=== PATIENT | female | born 1980 | race Caucasian/White ===

== ENCOUNTER 2017-08-05 05:16 | Inpatient (IN) | payer OTHER ==
[2017-08-04 13:43] VITALS: BMI 45.7
[2017-08-05] MEDS ORDERED: BUPIVACAINE HCL/PF 0.5% (5MG/ML) 10 ML VIAL ONE (07:48)
[2017-08-05] MEDS ORDERED: LIDOCAINE 1%/EPI 1:100000 (20 ML MULTI DOSE VIAL) ONE (07:48)
[2017-08-05] MEDS ORDERED: THROMBIN (BOVINE) 20,000 UNIT VIAL TP ONE (07:48)
[2017-08-05] MEDS ORDERED: GENTAMICIN SO4 80 MG/2 ML VIAL ONE ×2 (07:48→11:32)
--- NOTE | 2017-08-05 07:58 | HP ---
History & Physical Update - History History: No Change - Physical Physical: No Change - Assessment Assessment: No Change - Plan Plan: No Change (Initial H&P is located in her paper chart by Dr. Barroso on 07/31/17. No new complaints or medications.)
[2017-08-05] MEDS ORDERED: ROCURONIUM BROMIDE 50 MG/5 ML VIAL ONE ×3 (08:04→10:47)
[2017-08-05] MEDS ORDERED: fentaNYL CITRATE 250 MCG/5 ML VIAL ONE ×3 (08:04→12:02)
[2017-08-05] MEDS ORDERED: PROPOFOL 20 ML ONE (08:04)
[2017-08-05] MEDS ORDERED: MIDAZOLAM HCL 2 MG/2 ML SINGLE DOSE VIAL ONE ×2 (08:04→09:42)
[2017-08-05] MEDS ORDERED: LIDOCAINE HCL/PF 2% SDV 5ML VIAL ONE (08:05)
[2017-08-05] MEDS ORDERED: SCOPOLAMINE HYDROBROMIDE 1 PATCH PATCH.TD72 ONE (08:09)
[2017-08-05] MEDS ORDERED: SODIUM CHLORIDE 0.9% P/F 10 ML VIAL IJ ONE (08:46)
[2017-08-05] MEDS ORDERED: ceFAZolin SODIUM 1 GM VIAL ONE ×2 (08:46→12:42)
[2017-08-05] MEDS ORDERED: VANCOMYCIN 1,000 MG VIAL (RESTRICTED TO ID ONLY) ONE (08:46)
[2017-08-05] MEDS ORDERED: ceFAZolin SODIUM 1 GM VIAL IVPB ONE (08:47)
[2017-08-05] MEDS ORDERED: VANCOMYCIN 1,000 MG VIAL (RESTRICTED TO ID ONLY) IVPB ONE (08:48)
[2017-08-05] MEDS ORDERED: LIDOCAINE 1%/EPI 1:100000 (20 ML MULTI DOSE VIAL) INF ONE (08:53)
[2017-08-05] MEDS ORDERED: ONDANSETRON 4 MG/2 ML VIAL ONE ×2 (09:02→12:42)
[2017-08-05] MEDS ORDERED: DEXAMETHASONE SOD PHOSPHATE 4 MG/1 ML VIAL ONE ×2 (09:02→12:42)
[2017-08-05] MEDS ORDERED: BACITRACIN 50,000 UNITS VIAL TP ONE (09:09)
[2017-08-05] MEDS ORDERED: PHENYLEPHRINE HCL 10 MG/1 ML SINGLE DOSE VIAL ONE (09:31)
[2017-08-05] MEDS ORDERED: ALBUMIN HUMAN 5% 250 ML IV SOLUTION IVPB ONE (09:35)
[2017-08-05] MEDS ORDERED: GLYCOPYRROLATE 0.2 MG/1 ML VIAL ONE (12:42)
[2017-08-05] MEDS ORDERED: NEOSTIGMINE METHYLSULFATE 0.5 MG/ML - 10 ML MDV ONE (12:45)
[2017-08-05] MEDS ORDERED: HYDROmorphone *PCA* 10MG/50ML DISP.SYRIN PCA ONE ×2 (13:23→13:45)
--- NOTE | 2017-08-05 13:25 | OP ---
Operative Note - Note: Operative Date: 08/05/17 Pre-Operative Diagnosis: Thoracic spondylosis and scoliosis Operation: T5-T10 lamincetomies, osteotomies with T5/6 costovertebral and T7- T10 transpedicular decompression, correction of deformity with T5-T10 fusion Surgeon: Abdirahman Goodrich Title I Math Tutor: Zach Daniels Anesthesiologist/LOADER ENGINEER: Rafa Bernal Anesthesia: General Specimens Removed: T5/6 disc Estimated Blood Loss (mls): 3,000 Blood Volume Replaced (mls): 4 (PRBC, 2 FPP, 1L albumin) Fluid Volume Replaced (mls): 2,500 (LR) Operative Report Dictated: Yes
[2017-08-05] MEDS ORDERED: PROMETHAZINE HCL 25 MG/1 ML VIAL IVPB PRN (13:26)
[2017-08-05] MEDS ORDERED: LACTATED RINGERS SOLUTION 1,000 ML IV SCH (13:30)
[2017-08-05] MEDS ORDERED: clonazePAM 2 MG TABLET PO PRN (13:31)
--- NOTE | 2017-08-05 13:31 | SURG ---
Surgery Condenser Setter Note Condenser Setter: Zach Daniels PA-C Date of Service: 08/05/17 Diagnosis: Thoracic spondylosis, scoliosis Procedure: T5-T10 lamincetomies, osteotomies with T5/6 costovertebral and T7-T10 transpedicular decompression, correction of deformity with T5-T10 fusion I was present for the entirety of the operative procedure. For further detail, please refer to operative report. Visit type - Case Type Case Type: Scheduled Admission
[2017-08-05] MEDS ORDERED: ACETAMINOPHEN 1000 MG/100 ML VIAL (NON FORMULARY) IVPB PRN (13:32)
[2017-08-05] MEDS ORDERED: GABAPENTIN 400 MG CAPSULE (FP) PO SCH (14:00)
[2017-08-05] MEDS ORDERED: TIZANIDINE HCL 2 MG TABLET PO SCH (14:00)
[2017-08-05 14:03] LABS: BASO % 0.1 % (0-2.0); EOS % 0.1 % (0-4.5); HEMATOCRIT 28.3 % (32.4-45.2); HEMOGLOBIN 9.7 GM/dL (10.7-15.3); LYMPH % 9.8 % (8-40); MCH 29.9 pg (25.7-33.7); MCHC 34.2 g/dl (32.0-36.0); MEAN CELL VOLUME 87.5 fl (80-96); MEAN PLT VOLUME 8.8 fl (7.5-11.1); MONO % 0.8 % (3.8-10.2); NEUT % 89.2 % (42.8-82.8); PLATELET COUNT 155 K/MM3 (134-434); RBC 3.24 M/mm3 (3.60-5.2); RDW 13.8 % (11.6-15.6); WHITE BLOOD COUNT 10.4 K/mm3 (4.0-10.0)
[2017-08-05 14:34] LABS: INR 1.06 (0.82-1.09)
[2017-08-05 14:37] LABS: ACTIVATED PTT 26.6 SECONDS (26.9-34.4)
[2017-08-05] MEDS ORDERED: DEXAMETHASONE SOD PHOSPHATE 4 MG/1 ML VIAL IVPUSH ONE (14:37)
[2017-08-05] MEDS ORDERED: ACETAMINOPHEN 1000 MG/100 ML VIAL (NON FORMULARY) IVPB ONE (14:38)
[2017-08-05 14:47] LABS: ALBUMIN 3.3 g/dl (3.4-5.0); ANION GAP 4 (8-16); BILIRUBIN,TOTAL 0.9 mg/dL (0.2-1.0); BLOOD UREA NITROGEN 14 mg/dL (7-18); CALCIUM 7.4 mg/dL (8.5-10.1); CHLORIDE 114 mmol/L (98-107); CO2 24 mmol/L (21-32); CREATININE 0.8 mg/dL (0.55-1.02); GLUCOSE,RANDOM 147 mg/dL (74-106); POTASSIUM 4.9 mmol/L (3.5-5.1); SGOT/AST 21 U/L (15-37); SGPT/ALT 25 U/L (12-78); SODIUM 142 mmol/L (136-145); TOT PROT 5.5 g/dl (6.4-8.2)
[2017-08-05 14:48] LABS: ALK PHOS 47 U/L (45-117)
[2017-08-05] MEDS ORDERED: ACETAMINOPHEN 325 MG TABLET (FP) PO SCH (18:00)
--- NOTE | 2017-08-05 19:38 | PN ---
Progress Note, Physician History of Present Illness: Pt. being treated by caprice;lf as outpt.for neurology/pain. Dr. Goodrich's intervention greatly appreciated. Meds: Gabapentin-800mg qid Topamax- 100mg bid Oxycontin 15mg qid prn Tizanidine 2mq qid Zofran 8mg qid Cymbalta 30mg bid Klonopin 2mg tid prn -Will d/c Tizanidine, Oxycontin for now and cont. rest of out pt. meds. - Current Medication List Current Medications: Active Medications Acetaminophen (Ofirmev Injection -) 1,000 mg IVPB PRN PRN PRN Reason: If narcotics are ineffective Stop: 08/06/17 13:31 Clonazepam (Klonopin -) 2 mg PO Q8H PRN PRN Reason: ANXIETY Diazepam (Valium -) 2 mg PO Q12H [facility] Duloxetine HCl (Cymbalta -) 30 mg PO BID [facility] Fentanyl (Sublimaze Injection -) 50 mcg IVPUSH [id number] PRN PRN Reason: PAIN-PACU ORDER X 4 DOSES ONLY Gabapentin (Neurontin -) 800 mg PO QID [facility] Heparin Sodium (Porcine) (Heparin -) 5,000 unit SQ TID [facility] Hydromorphone HCl (Dilaudid Associate Professor Of Education -) 10 mg SALES AND TRAINING SPECIALIST SALES AND TRAINING SPECIALIST DARIEL PRN Reason: Protocol Stop: 08/12/17 13:27 Lactated Ringer's (Lactated Ringers Solution) 1,000 mls @ 125 mls/hr IV ASDIR [facility] Ondansetron HCl (Zofran Injection) 4 mg IVPUSH Q4H PRN PRN Reason: NAUSEA AND/OR VOMITING Oxycodone HCl (Roxicodone -) 15 mg PO Q6H PRN PRN Reason: PAIN Promethazine HCl (Phenergan Injection -) 12.5 mg IVPB Q6H PRN PRN Reason: NAUSEA AND/OR VOMITING Tizanidine HCl (Tizanidine Hcl) 2 mg PO QID [facility] Topiramate (Topamax -) 100 mg PO BID [facility] - Objective Vital Signs: Vital Signs Temperature 98.9 F 08/05/17 18:09 Pulse Rate 76 08/05/17 18:09 Respiratory Rate 20 08/05/17 18:09 Blood Pressure 128/71 08/05/17 18:09 O2 Sat by Pulse Oximetry (%) 100 08/05/17 18:09 Labs: CBC, BMP 08/05/17 13:45 08/05/17 13:45 INR, PTT INR 1.06 (0.82-1.09) 08/05/17 13:45
[2017-08-05] MEDS: ONDANSETRON 4 MG/2 ML VIAL IVPUSH PRN (19:40)
[2017-08-05] MEDS: HYDROmorphone *PCA* 10MG/50ML DISP.SYRIN PCA SCH (20:39)
[2017-08-05] MEDS: LACTATED RINGERS SOLUTION 1,000 ML IV SCH (20:39)
[2017-08-05] MEDS: GABAPENTIN 400 MG CAPSULE (FP) PO SCH ×2 (20:40→21:10)
[2017-08-05] MEDS: DULoxetine HCL 30 MG CAPSULE.DR (FP) PO SCH (21:11)
[2017-08-05] MEDS: TOPIRAMATE 100 MG TABLET PO SCH (21:11)
[2017-08-05] MEDS ORDERED: diazePAM 2 MG TABLET PO SCH (22:00)
[2017-08-06] MEDS: LACTATED RINGERS SOLUTION 1,000 ML IV SCH ×3 (00:34→14:16)
[2017-08-06] MEDS: oxyCODONE HCL 5 MG TABLET PO PRN ×2 (00:43→06:10)
[2017-08-06] MEDS: HYDROmorphone *PCA* 10MG/50ML DISP.SYRIN PCA SCH ×2 (04:09→19:09)
[2017-08-06] MEDS: ONDANSETRON 4 MG/2 ML VIAL IVPUSH PRN ×2 (04:12→12:57)
[2017-08-06] MEDS ORDERED: clonazePAM 0.5 MG TABLET PO PRN (04:40)
[2017-08-06 06:30] LABS: HEMATOCRIT 21.3 % (32.4-45.2); HEMOGLOBIN 7.5 GM/dL (10.7-15.3); MCH 30.4 pg (25.7-33.7); MCHC 35.4 g/dl (32.0-36.0); MEAN CELL VOLUME 85.9 fl (80-96); PLATELET COUNT 170 K/MM3 (134-434); RBC 2.48 M/mm3 (3.60-5.2); RDW 14.2 % (11.6-15.6); WHITE BLOOD COUNT 10.4 K/mm3 (4.0-10.0)
[2017-08-06 06:57] LABS: ANION GAP 4 (8-16); BLOOD UREA NITROGEN 11 mg/dL (7-18); CALCIUM 7.9 mg/dL (8.5-10.1); CHLORIDE 111 mmol/L (98-107); CO2 26 mmol/L (21-32); GLUCOSE,RANDOM 93 mg/dL (74-106); SODIUM 141 mmol/L (136-145)
[2017-08-06 06:58] LABS: CREATININE 0.6 mg/dL (0.55-1.02)
--- NOTE | 2017-08-06 07:49 | PN ---
Progress Note (short form) - Note Progress Note: POD #1 Alert. Laying supine in bed. C/o incisional tenderness. States she's afraid to move. Has BURRER OPERATOR for pain management but states it really isn't helping. Hasn't been OOB yet. Using her incentive spirometer as directed. Patient had 2500mL blood loss during surgery. Intra-op she received 4 PRBC, 2 FFP, 1L albumin and 2500mL LR. Denies n/v/f/c, CP, SOB, palpitations. Last Vital Signs Temp Pulse Resp BP Pulse Ox 98.6 F 72 22 122/63 100 08/06/17 06:00 08/06/17 07:00 08/06/17 07:00 08/06/17 07:00 08/05/17 22:00 CBC, BMP 08/06/17 06:05 08/06/17 06:05 Blood Type Blood Type A POSITIVE 08/05/17 06:30 OUTPUT 08/05/17 08/05/17 08/05/17 08/06/17 08/06/17 19:14 23:41 23:44 06:03 06:21 SHANTA 120 70 80 Piña 400 900 Gen: alert. nad Back: dressing c/d/i, SHANTA on bulb suction : piña to gravity (clear) Neuro: GMNVI bilat. LE: SCDs bilat. soft. nt Problem List - Problems (1) Status post thoracic spinal fusion Assessment/Plan: s/p T5-T10 lamincetomies, osteotomies with T5/6 costovertebral and T7-T10 transpedicular decompression, correction of deformity with T5-T10 fusion. Transfuse 2 PRBC Serial CBC Incentive spirometer Can dc piña once patient OOB and ambulating PT ordered TLSO ordered (pt can begin mobilization without brace. when it does arrive, patient instructed to wear when OOB or ambulating > [address] Gabino Jefferson / Pain Management Consulted BURRER OPERATOR Monitor output from SHANTA and record q shift Hold heparin SQ for now Above plan discussed with Dr. Goodrich and agrees Code(s): Z98.1 - ARTHRODESIS STATUS
[2017-08-06] MEDS ORDERED: oxyCODONE HCL 10 MG SUSTAINED ACTING TABLET PO SCH (11:00)
--- NOTE | 2017-08-06 11:06 | PN ---
Teaching Attending Note Name of Resident: Hilda Banks ATTENDING PHYSICIAN STATEMENT I saw and evaluated the patient. I reviewed the resident's note and discussed the case with the resident. I agree with the resident's findings and plan as documented. SUBJECTIVE: Pt seen and examined in the ICU. Briefly, 36yo female with h/o thoracic spondylosis/scoliosis, pulmonary AVM s/p RLL lobectomy who was admitted for T5- T10 laminectomies/decompression/fusion. EBL 3000mL, transfused 4 units PRBC, 2 units FFP, 1L albumin, 2500mL LR intraop. Seen post op day 1 on dilaudid DRILLER HELPER pump. States pain not controlled. Mild shortness of breath without chest pain. No fevers or chills. +chronic nausea. OBJECTIVE: Last Vital Signs Temp Pulse Resp BP Pulse Ox 98 F 76 22 100/57 100 08/06/17 10:00 08/06/17 10:00 08/06/17 10:00 08/06/17 10:00 08/05/17 22:00 Intake & Output 08/03/17 08/04/17 08/05/17 08/06/17 23:59 23:59 23:59 23:59 Intake Total 5336 1600 Output Total 4490 980 Balance 846 620 Weight 113.398 kg 116.375 kg Gen: uncomfortable with movements Heart: RRR Lung: decreased breath sounds at the bases Abd: soft, nontendeer Ext: no edema Drain: serosanguinous drainage CBC, BMP 08/06/17 06:05 08/06/17 06:05 Active Medications Clonazepam (Klonopin -) 2 mg PO Q8H PRN PRN Reason: ANXIETY Last Admin: 08/06/17 06:11 Dose: 2 mg Diazepam (Valium -) 2 mg PO Q12H [facility] Docusate Sodium (Colace -) 100 mg PO TID [facility] Duloxetine HCl (Cymbalta -) 30 mg PO BID [facility] Last Admin: 08/05/17 21:11 Dose: 30 mg Fentanyl (Sublimaze Injection -) 50 mcg IVPUSH [id number] PRN PRN Reason: PAIN-PACU ORDER X 4 DOSES ONLY Ferrous Sulfate (Feosol -) 325 mg PO DAILY [facility] Gabapentin (Neurontin -) 800 mg PO QID [facility] Last Admin: 08/05/17 21:10 Dose: 800 mg Heparin Sodium (Porcine) (Heparin -) 5,000 unit SQ TID [facility] Hydromorphone HCl (Dilaudid Motion Picture Camera Operator -) 10 mg DRILLER HELPER DRILLER HELPER DARIEL PRN Reason: Protocol Stop: 08/12/17 13:27 Last Admin: 08/06/17 04:09 Dose: 10 mg Lactated Ringer's (Lactated Ringers Solution) 1,000 mls @ 125 mls/hr IV ASDIR [facility] Last Admin: 08/06/17 06:12 Dose: 125 mls/hr Ondansetron HCl (Zofran Injection) 4 mg IVPUSH Q4H PRN PRN Reason: NAUSEA AND/OR VOMITING Last Admin: 08/06/17 04:12 Dose: 4 mg Promethazine HCl (Phenergan Injection -) 12.5 mg IVPB Q6H PRN PRN Reason: NAUSEA AND/OR VOMITING Topiramate (Topamax -) 100 mg PO BID [facility] Last Admin: 08/05/17 21:11 Dose: 100 mg ASSESSMENT AND PLAN: Thoracic Spondylosis/Scoliosis T5-T10 laminectomies/decompression/fusion Acute Blood Loss Anemia Pulmonary AVM s/p RLL lobectomy - pain control - incentive spirometry - monitor H/H - transfuse as needed - IVF - PO/pñia/PT per surgery - bowel regimen - DVT prophylaxis - continue ICU monitoring
--- NOTE | 2017-08-06 11:12 | PN ---
Progress Note, Physician Chief Complaint: events noted and reviewed brother is bedside patient in extreme pain - Current Medication List Current Medications: Active Medications Clonazepam (Klonopin -) 2 mg PO Q8H PRN PRN Reason: ANXIETY Last Admin: 08/06/17 06:11 Dose: 2 mg Diazepam (Valium -) 2 mg PO Q12H [facility] Docusate Sodium (Colace -) 100 mg PO TID [facility] Duloxetine HCl (Cymbalta -) 30 mg PO BID [facility] Last Admin: 08/05/17 21:11 Dose: 30 mg Fentanyl (Sublimaze Injection -) 50 mcg IVPUSH [id number] PRN PRN Reason: PAIN-PACU ORDER X 4 DOSES ONLY Ferrous Sulfate (Feosol -) 325 mg PO DAILY [facility] Gabapentin (Neurontin -) 800 mg PO QID [facility] Last Admin: 08/05/17 21:10 Dose: 800 mg Heparin Sodium (Porcine) (Heparin -) 5,000 unit SQ TID [facility] Hydromorphone HCl (Dilaudid Can Top Setter -) 10 mg RADIATION CONTROL TECHNICIAN RADIATION CONTROL TECHNICIAN [facility] PRN Reason: Protocol Stop: 08/12/17 13:27 Last Admin: 08/06/17 04:09 Dose: 10 mg Lactated Ringer's (Lactated Ringers Solution) 1,000 mls @ 125 mls/hr IV ASDIR [facility] Last Admin: 08/06/17 06:12 Dose: 125 mls/hr Ondansetron HCl (Zofran Injection) 4 mg IVPUSH Q4H PRN PRN Reason: NAUSEA AND/OR VOMITING Last Admin: 08/06/17 04:12 Dose: 4 mg Promethazine HCl (Phenergan Injection -) 12.5 mg IVPB Q6H PRN PRN Reason: NAUSEA AND/OR VOMITING Topiramate (Topamax -) 100 mg PO BID [facility] Last Admin: 08/05/17 21:11 Dose: 100 mg - Objective Vital Signs: Vital Signs Temperature 98 F 08/06/17 10:00 Pulse Rate 76 08/06/17 10:00 Respiratory Rate 22 08/06/17 10:00 Blood Pressure 100/57 08/06/17 10:00 O2 Sat by Pulse Oximetry (%) 100 08/05/17 22:00 Constitutional: Yes: Severe Distress Eyes: Yes: WNL HENT: Yes: WNL Neck: Yes: WNL Cardiovascular: Yes: WNL Respiratory: Yes: WNL, On Nasal O2 Gastrointestinal: Yes: WNL Genitourinary: Yes: Deny Present Musculoskeletal: Yes: Muscle Weakness Extremities: Yes: WNL Edema: Yes Edema: LLE: Trace, RLE: Trace Peripheral Pulses WNL: Yes Integumentary: Yes: WNL Wound/Incision: Yes: Clean/Dry Neurological: Yes: Pre-Existing Deficit ...Motor Strength: RLE Psychiatric: Yes: WNL Labs: CBC, BMP 08/06/17 06:05 08/06/17 06:05 INR, PTT INR 1.06 (0.82-1.09) 08/05/17 13:45 Assessment/Plan S/P THORACIC LEVEL T5-T10 LAMINECTOMIES WITH DECOMPRESSION IN EXTREME PAIN PAIN MEDICINE CONSULT RADIATION CONTROL TECHNICIAN START CALCITONIN PARANASAL FOR BONE SUPPORT DVT PROPHYLAXIS TYLENOL ALLERGY? INCENTIVE SPIROMETRY
--- NOTE | 2017-08-06 11:22 | CONSULT ---
Consultation: CONSULT REQUEST: We have been asked to medically evaluate this patient for post- op management. HISTORY OF PRESENT ILLNESS: 36F with PMH of back pain, spondylosis, thoracic spinal instabilities, Lung Ca, AVMs in lung, TIA (05/16 lung tumor), pseudotumor cerebri, presents s/p elective thoracic spine surgery with Dr. Goodrich. Estimated blood loss = 3L. S/p 4 units PRBCs, 2 units FFP, and 1 unit platelets all transfused yesterday. Pt had an outbreak of hives after the 4th unit given (at 3:30pm yesterday), which resolved with Benadryl. Pt still experience acute blood loss anemia, with 2 more units PRBCs ordered for today. Pt c/o back pain, anesthesia to adjust pain medication. Pt c/o chronic nausea for which she takes Zofran prn. Pt denies flatus. Pt denies headache, chest pain, vomiting, fever, chills. FAMILY HX: Sister: DM Mother: Stroke age 55 Maternal Grandfather: stroke SURGICAL HX: 3 thoracotomies related to Right lower lobe sequestration and tumor removal, hiatal hernia repair, and appendectomy REVIEW OF SYSTEMS: CONSTITUTIONAL: Absent: fever, chills, diaphoresis, generalized weakness HEENT: Absent: rhinorrhea, nasal congestion, throat pain, ear pain, eye pain, visual changes CARDIOVASCULAR: Absent: chest pain, palpitations, irregular heart rate, lightheadedness RESPIRATORY: Absent: cough, dyspnea with exertion, orthopnea, wheezing, stridor GASTROINTESTINAL: nausea Absent: abdominal distension, vomiting, diarrhea, constipation MUSCULOSKELETAL: back pain Absent: myalgia, arthralgia, joint swelling, neck pain SKIN: Absent: rash, itching, pallor HEMATOLOGIC/IMMUNOLOGIC: Absent: easy bleeding, easy bruising, lymphadenopathy NEUROLOGIC: Absent: headache, focal weakness or paresthesias, dizziness, unsteady gait, seizure, mental status changes, bladder or bowel incontinence PSYCHIATRIC: Absent: anxiety, depression, suicidal or homicidal ideation, hallucinations. PHYSICAL EXAMINATION Vital Signs - 24 hr 08/05/17 08/05/17 08/05/17 13:17 13:35 13:50 Temperature 99.1 F Pulse Rate 80 60 58 L Respiratory 20 16 16 Rate Blood Pressure 121/66 103/54 109/55 O2 Sat by Pulse 100 100 100 Oximetry (%) 08/05/17 08/05/17 08/05/17 14:05 14:20 14:35 Temperature Pulse Rate 64 64 70 Respiratory 16 16 16 Rate Blood Pressure 114/60 120/64 119/63 O2 Sat by Pulse 100 100 100 Oximetry (%) 08/05/17 08/05/17 08/05/17 14:50 15:05 15:20 Temperature Pulse Rate 76 76 80 Respiratory 16 16 16 Rate Blood Pressure 117/67 120/64 114/71 O2 Sat by Pulse 100 100 100 Oximetry (%) 08/05/17 08/05/17 08/05/17 15:35 15:50 17:32 Temperature 98.7 F 98.9 F Pulse Rate 68 66 76 Respiratory 16 16 20 Rate Blood Pressure 113/68 120/74 128/71 O2 Sat by Pulse 100 Oximetry (%) 08/05/17 08/05/17 08/05/17 18:09 19:00 19:55 Temperature 98.9 F Pulse Rate 76 70 66 Respiratory 20 22 16 Rate Blood Pressure 128/71 126/74 111/58 O2 Sat by Pulse 100 Oximetry (%) 08/05/17 08/05/17 08/05/17 20:00 21:00 22:00 Temperature 98.9 F Pulse Rate 68 62 59 L Respiratory 24 22 24 Rate Blood Pressure 111/58 118/66 109/50 O2 Sat by Pulse 100 Oximetry (%) 08/05/17 08/06/17 08/06/17 23:00 00:00 01:00 Temperature Pulse Rate 60 61 65 Respiratory 22 22 25 H Rate Blood Pressure 110/53 119/52 117/58 O2 Sat by Pulse Oximetry (%) 08/06/17 08/06/17 08/06/17 02:00 03:00 04:00 Temperature 99 F Pulse Rate 62 60 57 L Respiratory 24 24 22 Rate Blood Pressure 114/49 119/63 117/59 O2 Sat by Pulse Oximetry (%) 08/06/17 08/06/17 08/06/17 04:09 04:39 05:00 Temperature Pulse Rate 65 64 62 Respiratory 28 H 18 22 Rate Blood Pressure 117/59 117/59 108/66 O2 Sat by Pulse Oximetry (%) 08/06/17 08/06/17 08/06/17 05:09 05:39 06:00 Temperature 98.6 F Pulse Rate 62 60 78 Respiratory 20 22 24 Rate Blood Pressure 119/63 117/58 110/65 O2 Sat by Pulse Oximetry (%) 08/06/17 08/06/17 08/06/17 06:09 06:39 07:00 Temperature Pulse Rate 64 62 72 Respiratory 22 22 22 Rate Blood Pressure 108/66 122/63 122/63 O2 Sat by Pulse Oximetry (%) 08/06/17 08/06/17 08:00 10:00 Temperature 98 F Pulse Rate 74 76 Respiratory 22 22 Rate Blood Pressure 126/65 100/57 O2 Sat by Pulse Oximetry (%) GENERAL: AAOx3, mildly anxious. HEAD: Normal with no signs of trauma. EYES: Extraocular movements intact, sclera anicteric, conjunctiva clear. No lid lag. EARS, NOSE, THROAT: Moist mucous membranes. NECK: Normal range of motion, supple without lymphadenopathy, JVD, or masses. LUNGS: Breath sounds equal, clear to auscultation bilaterally. No wheezes, and no crackles. No accessory muscle use. HEART: Regular rate and rhythm, normal S1 and S2 without murmur, rub or gallop. ABDOMEN: Soft, nontender, not distended, hypoactive bowel sounds, no guarding. BACK: Surgical dressing dry and intact, with a small amount of blood visible seeping through. SHANTA drain with serosanguinous fluid. LOWER EXTREMITIES: 2+ pulses, warm, well-perfused. No calf tenderness. No peripheral edema. NEUROLOGICAL: Cranial nerves II-XII grossly intact. Normal speech. No facial droop. Sensation intact and symmetric throughout. Muscle strength 5/5 x 4 extremities. SKIN: Warm, dry, normal turgor, no rashes or lesions noted. Laboratory Results - last 24 hr 08/05/17 08/05/17 08/05/17 06:30 13:45 13:45 WBC 10.4 H RBC 3.24 L D Hgb 9.7 L D Hct 28.3 L D MCV 87.5 MCH 29.9 D MCHC 34.2 RDW 13.8 D Plt Count 155 D MPV 8.8 Neutrophils % 89.2 H D Lymphocytes % 9.8 D Monocytes % 0.8 L D Eosinophils % 0.1 Basophils % 0.1 PT with INR 12.00 INR 1.06 PTT (Actin FS) 26.6 L Sodium Potassium Chloride Carbon Dioxide Anion Gap BUN Creatinine Creat Clearance w eGFR Random Glucose Calcium Total Bilirubin AST ALT Alkaline Phosphatase Total Protein Albumin Blood Type A POSITIVE Antibody Screen Negative Crossmatch See Detail Crossmatch IS Only See Detail 08/05/17 08/06/17 08/06/17 13:45 06:05 06:05 WBC 10.4 H RBC 2.48 L D Hgb 7.5 L D Hct 21.3 L D MCV 85.9 MCH 30.4 MCHC 35.4 RDW 14.2 Plt Count 170 MPV 9.0 Neutrophils % Lymphocytes % Monocytes % Eosinophils % Basophils % PT with INR INR PTT (Actin FS) Sodium 142 141 Potassium 4.9 4.0 Chloride 114 H 111 H Carbon Dioxide 24 26 Anion Gap 4 L 4 L BUN 14 11 Creatinine 0.8 0.6 Creat Clearance w eGFR > 60 Random Glucose 147 H 93 Calcium 7.4 L 7.9 L Total Bilirubin 0.9 D AST 21 ALT 25 Alkaline Phosphatase 47 Total Protein 5.5 L Albumin 3.3 L Blood Type Antibody Screen Crossmatch Crossmatch IS Only Active Medications Generic Name Dose Route Start Last Admin Trade Name Freq PRN Reason Stop Dose Admin Clonazepam 2 mg 08/06/17 04:40 08/06/17 06:11 Klonopin - PO 2 mg Q8H PRN Administration ANXIETY Diazepam 2 mg 08/05/17 22:00 Valium - PO Q12H DARIEL Docusate Sodium 100 mg 08/06/17 14:00 Colace - PO TID DARIEL Duloxetine HCl 30 mg 08/05/17 22:00 08/05/17 21:11 Cymbalta - PO 30 mg BID DARIEL Administration Fentanyl 50 mcg 08/05/17 14:37 Sublimaze Injection - IVPUSH [id number] PRN PAIN-PACU ORDER X 4 DOSES ONLY Ferrous Sulfate 325 mg 08/06/17 10:00 Feosol - PO DAILY DARIEL Gabapentin 800 mg 08/05/17 14:00 08/05/17 21:10 Neurontin - PO 800 mg QID DARIEL Administration Heparin Sodium (Porcine) 5,000 unit 08/06/17 14:00 Heparin - SQ TID [facility] Hydromorphone HCl 10 mg 08/05/17 13:30 08/06/17 04:09 Dilaudid Support Worker - RETOUCHER 08/12/17 13:27 10 mg RETOUCHER DARIEL Administration Protocol Lactated Ringer's 1,000 mls @ 125 mls/hr 08/05/17 13:45 08/06/17 06:12 Lactated Ringers Solution IV 125 mls/hr ASDIR DARIEL Administration Ondansetron HCl 4 mg 08/05/17 13:26 08/06/17 04:12 Zofran Injection IVPUSH 4 mg Q4H PRN Administration NAUSEA AND/OR VOMITING Oxycodone HCl 15 mg 08/05/17 14:41 08/06/17 06:10 Roxicodone - PO 15 mg Q6H PRN Administration PAIN Promethazine HCl 12.5 mg 08/05/17 13:26 Phenergan Injection - IVPB Q6H PRN NAUSEA AND/OR VOMITING Topiramate 100 mg 08/05/17 22:00 08/05/17 21:11 Topamax - PO 100 mg BID DARIEL Administration IMAGIN08/05/[address] -> s/p T5-T10 vertebral bodies in satisfactory alignment. Bone defect seen along inferior posterior margin of T5 and superior/ posterior margin of T6 vertebral body with soft tissue density filling the bone defect and with air pockets suggestive of extension of soft tissue density into spine around thoracic cord. Prominent posterior epidural soft tissue at T9-T10 level noted. Correlation with contrast-enhanced MRI of thoracic spine recommended if further eval desired to r/o post-up hematoma or cord compression. ASSESSMENT/PLAN: 36F with PMH of back pain, spondylosis, thoracic spinal instabilities, Lung Ca, AVMs in lung, TIA (05/16 lung tumor), pseudotumor cerebri, presents s/p elective thoracic spine surgery with Dr. Goodrich. # thoracic back pain - s/p T5-T10 lamincetomies, osteotomies with T5/6 costovertebral and T7-T10 transpedicular decompression, and correction of deformity with T5-T10 fusion [address] Dr[address] Goodrich on 08/05/17 - POD #1 - post-op care per Dr. Goodrich: monitor SHANTA drain, TLSO ordered (pt can begin mobilization without brace and when it arrives, pt should wear for OOB or ambulating > 5 mins), can D/C piña when pt OOB and ambulating - incentive spirometry - pain control with Dilaudid pump, Oxycontin BID, and Neurontin QID - continue home meds of Klonopin and Topamax for back pain - Calcitonin for bone support - Zofran prn and Phenergan prn for nausea # acute blood loss anemia - s/p 6U PRBCs this hospitalization, 2U today and 4U yesterday noemy-op - monitor cbc - monitor for overt s/s of bleeding - transfuse prn - continue Feosol supplementation # FEN - Fluids: LR @ 125 ml/hr - Electrolytes: wnl, continue to monitor - Nutrition: clear liquids # Prophylaxis - DVT ppx with Heparin TID - deconditioning ppx with PT Dispo: We will continue to follow the patient. Thank you for this consultative opportunity. Visit type - Emergency Visit Emergency Visit: Yes ED Registration Date: 08/05/17 Care time: The patient presented to the Emergency Department on the above date and was hospitalized for further evaluation of their emergent condition. - New Patient This patient is new to me today: Yes Date on this admission: 08/06/17 - Critical Care Critical Care patient: Yes Total Critical Care Time (in minutes): 50 Critical Care Statement: The care of this patient involved high complexity decision making to prevent further life threatening deterioration of the patient 's condition and/or to evaluate & treat vital organ system(s) failure or risk of failure.
[2017-08-06] MEDS: oxyCODONE HCL 10 MG SUSTAINED ACTING TABLET PO SCH ×3 (11:32→21:14)
[2017-08-06] MEDS: GABAPENTIN 400 MG CAPSULE (FP) PO SCH ×4 (11:33→21:38)
[2017-08-06] MEDS: DULoxetine HCL 30 MG CAPSULE.DR (FP) PO SCH ×2 (11:33→21:38)
[2017-08-06] MEDS: FERROUS SO4 325 MG TABLET (FP) PO SCH (11:33)
[2017-08-06] MEDS: TOPIRAMATE 100 MG TABLET PO SCH ×2 (11:33→21:38)
[2017-08-06] MEDS ORDERED: HEPARIN NA (PORCINE) 5,000 UNITS/ML 1ML VIAL SQ SCH (14:00)
--- NOTE | 2017-08-06 15:33 | EKG ---
Test Reason : Blood Pressure : / mmHG Vent. Rate : 095 BPM Atrial Rate : 095 BPM P-R Int : 158 ms QRS Dur : 088 ms QT Int : 342 ms P-R-T Axes : 026 004 027 degrees QTc Int : 429 ms NORMAL SINUS RHYTHM NORMAL ECG WHEN COMPARED WITH ECG OF 12-DEC-2011 18:46, VENT. RATE HAS INCREASED BY 41 BPM T WAVE AMPLITUDE HAS DECREASED IN LATERAL LEADS Confirmed by COLUMBA DURAND, JOSE D ([id number]) on 08/06/2017 3:33:05 PM Referred By: Confirmed By:JOSE D WATERMAN MD
--- NOTE | 2017-08-06 15:49 | PN ---
Progress Note (short form) - Note Progress Note: Post op day#1.S/p T5-T10 Posterior decompression with laminectomy,osteotomy, instrumentation and fusion under Ga uneventful.P98,Bp 100/68 and Spo2 (8% on O2 2L NC.Patient stable and c/o pain score of 4-5/[address]Patient doing well and is being transfused PRBC.Will continue MANAGER CT and will f/u tomorrow.
[2017-08-06] MEDS: HEPARIN NA (PORCINE) 5,000 UNITS/ML 1ML VIAL SQ SCH ×2 (16:11→21:44)
[2017-08-06] MEDS: DOCUSATE SODIUM 100 MG CAPSULE (FP) PO SCH ×2 (16:11→21:38)
[2017-08-06] MEDS ORDERED: PT OWN MED DRAWER 7, Y5N ONE ×3 (17:00→20:07)
[2017-08-06] MEDS: CALCITONIN - SALMON SYNTHETIC 3.7 ML SPRAY.PUMP NS SCH (20:13)
[2017-08-06 20:39] LABS: HEMATOCRIT 25.8 % (32.4-45.2); HEMOGLOBIN 8.9 GM/dL (10.7-15.3); MCH 29.3 pg (25.7-33.7); MCHC 34.3 g/dl (32.0-36.0); MEAN CELL VOLUME 85.2 fl (80-96); PLATELET COUNT 155 K/MM3 (134-434); RBC 3.03 M/mm3 (3.60-5.2); RDW 14.3 % (11.6-15.6); WHITE BLOOD COUNT 12.1 K/mm3 (4.0-10.0)
[2017-08-06] MEDS: SENNOSIDES 8.8 MG/5 ML BULK BOTTLE PO SCH (21:37)
[2017-08-07] MEDS: diazePAM 2 MG TABLET PO SCH ×4 (03:00→21:30)
[2017-08-07] MEDS: DOCUSATE SODIUM 100 MG CAPSULE (FP) PO SCH ×3 (05:33→21:29)
[2017-08-07] MEDS: HEPARIN NA (PORCINE) 5,000 UNITS/ML 1ML VIAL SQ SCH ×3 (05:33→21:30)
[2017-08-07 07:54] LABS: HEMATOCRIT 25.7 % (32.4-45.2); HEMOGLOBIN 8.9 GM/dL (10.7-15.3); MCH 29.5 pg (25.7-33.7); MCHC 34.8 g/dl (32.0-36.0); MEAN CELL VOLUME 84.8 fl (80-96); MEAN PLT VOLUME 8.5 fl (7.5-11.1); PLATELET COUNT 147 K/MM3 (134-434); RBC 3.03 M/mm3 (3.60-5.2); RDW 14.7 % (11.6-15.6); WHITE BLOOD COUNT 11.3 K/mm3 (4.0-10.0)
[2017-08-07] MEDS: ONDANSETRON 4 MG/2 ML VIAL IVPUSH PRN (08:16)
[2017-08-07 08:17] LABS: ANION GAP 8 (8-16); BLOOD UREA NITROGEN 10 mg/dL (7-18); CALCIUM 7.9 mg/dL (8.5-10.1); CHLORIDE 108 mmol/L (98-107); CO2 24 mmol/L (21-32); CREATININE 0.7 mg/dL (0.55-1.02); GLUCOSE,RANDOM 111 mg/dL (74-106); MAGNESIUM 2.1 mg/dL (1.8-2.4); PHOSPHOROUS 1.7 mg/dL (2.5-4.9); POTASSIUM 3.6 mmol/L (3.5-5.1); SODIUM 140 mmol/L (136-145)
--- NOTE | 2017-08-07 08:18 | PN ---
Progress Note (short form) - Note Progress Note: POD #2 Alert. Laying supine in bed. Still c/o incisional tenderness. Pain is 6/10 despite using Dilaudid FINISHED STOCK INSPECTOR. Got OOB with assistance yesterday for a little bit. Dr. Jefferson from Pain Management saw patient yesterday and ordered medication but didn't write official consult yet (soon to follow he said). She is using her incentive spirometer as directed. Receieved 2 PRBC yesterday. Piña cath still in. Denies n/v/f/c, CP, SOB, HERRERA, weal, palpitations, numbness/tingling to her lower extremities. Last Vital Signs Temp Pulse Resp BP Pulse Ox 99.2 F 98 H 22 103/63 95 08/07/17 06:00 08/07/17 06:00 08/07/17 06:00 08/07/17 06:00 08/06/17 20:39 H/H TREND 08/06/17 08/06/17 08/07/17 06:05 19:00 07:15 Hgb 7.5 L D 8.9 L D 8.9 L Hct 21.3 L D 25.8 L D 25.7 L INR, PTT INR 1.06 (0.82-1.09) 08/05/17 13:45 OUTPUT TREND 08/06/17 08/06/17 08/06/17 08/07/17 06:21 15:23 23:19 06:14 SHANTA (sanguinous) 80 120 100 Piña (clear) 1,000 400 900 PE Gen: alert. nad Back: dressing removed on rounds --> jm intact. No hematoma. c/d/i. New dressing reapplied. SHANTA line stripped of clots (now running free). Placed back on bulb suction : piña to gravity Neuro: GMNVI bilat. Strength 5/5 bilat LE: SCDs bilat. soft. nt Problem List - Problems (1) Status post thoracic spinal fusion Assessment/Plan: Patient recovering slowly. Spoke with Dr. Jefferson who added Oxycontin 20mg BID in addition to her Dilaudid FINISHED STOCK INSPECTOR. Cont using your incentive spirometer Piña to be d/c'd --> patient can use bedpan or bedside commode. DVT ppx --> Heparin 5000 SQ TID, VIVIAN/SCDs Diet as tolerated PT Monitor H/H and transfuse PRBC prn TLSO brace ordered but still hasn't come from supply Dr. Jefferson's Pain Management consult to follow If patient's pain is controlled well, possiblity to downgrade to floor later today after we re-evaluate her. Code(s): Z98.1 - ARTHRODESIS STATUS
[2017-08-07] MEDS ORDERED: POTASSIUM PHOSPHATE 30 MM in SODIUM CHLORIDE 250 ML IVPB ONE (09:05)
[2017-08-07] MEDS: FERROUS SO4 325 MG TABLET (FP) PO SCH (09:06)
[2017-08-07] MEDS: oxyCODONE HCL 10 MG SUSTAINED ACTING TABLET PO SCH ×2 (09:06→21:30)
[2017-08-07] MEDS: DULoxetine HCL 30 MG CAPSULE.DR (FP) PO SCH ×2 (09:06→21:30)
[2017-08-07] MEDS: GABAPENTIN 400 MG CAPSULE (FP) PO SCH ×4 (09:07→21:29)
[2017-08-07] MEDS: CALCITONIN - SALMON SYNTHETIC 3.7 ML SPRAY.PUMP NS SCH (10:46)
--- NOTE | 2017-08-07 11:11 | PN ---
Teaching Attending Note Name of Resident: Hilda Banks ATTENDING PHYSICIAN STATEMENT I saw and evaluated the patient. I reviewed the resident's note and discussed the case with the resident. I agree with the resident's findings and plan as documented. SUBJECTIVE: Pt seen and examined in the ICU. Still with significant pain despite adjustment from pain management. +chronic nausea. No BM. OBJECTIVE: Last Vital Signs Temp Pulse Resp BP Pulse Ox 99.2 F 89 26 H 111/66 95 08/07/17 06:00 08/07/17 08:00 08/07/17 08:38 08/07/17 08:00 08/07/17 08:38 Intake & Output 08/04/17 08/05/17 08/06/17 08/07/17 23:59 23:59 23:59 23:59 Intake Total 5336 1900 500 Output Total 4490 2500 1000 Balance 846 -600 -500 Weight 113.398 kg 116.375 kg 115.468 kg Gen: NAD at rest Heart: RRR Lung: decreased breath sounds at the bases Abd: soft, nontender Ext: no edema Drain: serosanguinous fluid CBC, BMP 08/07/17 07:15 08/07/17 07:15 Active Medications Calcitonin (Miacalcin [place] -) 200 units NS DAILY [facility] Last Admin: 08/07/17 10:46 Dose: 1 spray Diazepam (Valium -) 2 mg PO TID [facility] Last Admin: 08/07/17 05:59 Dose: 2 mg Docusate Sodium (Colace -) 100 mg PO TID [facility] Last Admin: 08/07/17 05:33 Dose: 100 mg Duloxetine HCl (Cymbalta -) 30 mg PO BID [facility] Last Admin: 08/07/17 09:06 Dose: 30 mg Fentanyl (Sublimaze Injection -) 50 mcg IVPUSH [id number] PRN PRN Reason: PAIN-PACU ORDER X 4 DOSES ONLY Ferrous Sulfate (Feosol -) 325 mg PO DAILY [facility] Last Admin: 08/07/17 09:06 Dose: 325 mg Gabapentin (Neurontin -) 800 mg PO QID [facility] Last Admin: 08/07/17 09:07 Dose: 800 mg Heparin Sodium (Porcine) (Heparin -) 5,000 unit SQ TID [facility] Last Admin: 08/07/17 05:33 Dose: 5,000 unit Hydromorphone HCl (Dilaudid Pipe Layer Helper -) 10 mg BUSINESS PRACTICES SUPERVISOR BUSINESS PRACTICES SUPERVISOR [facility] PRN Reason: Protocol Stop: 08/12/17 13:27 Last Admin: 08/06/17 19:09 Dose: 10 mg Lactated Ringer's (Lactated Ringers Solution) 1,000 mls @ 125 mls/hr IV ASDIR [facility] Last Admin: 08/06/17 14:16 Dose: Not Given Potassium Phosphate 30 mm/ (Sodium Chloride) 260 mls @ 62.5 mls/hr IVPB ONCE ONE Stop: 08/07/17 13:14 Last Admin: 08/07/17 10:43 Dose: 62.5 mls/hr Oxycodone HCl (Oxycontin -) 20 mg PO BID [facility] Last Admin: 08/07/17 09:06 Dose: 20 mg Promethazine HCl (Phenergan Injection -) 12.5 mg IVPB Q6H PRN PRN Reason: NAUSEA AND/OR VOMITING Senna (Senna Oral Solution -) 8.8 mg PO HS [facility] Last Admin: 08/06/17 21:37 Dose: 5 ml Topiramate (Topamax -) 100 mg PO BID [facility] Last Admin: 08/06/17 21:38 Dose: 100 mg ASSESSMENT AND PLAN: Thoracic Spondylosis/Scoliosis T5-T10 laminectomies/decompression/fusion Acute Blood Loss Anemia Pulmonary AVM s/p RLL lobectomy - adjust pain control - incentive spirometry - monitor H/H - transfuse as needed - IVF - replete lytes - PO/piña/PT per surgery - bowel regimen - DVT prophylaxis - disposition per surgery
--- NOTE | 2017-08-07 11:24 | PN ---
Progress Note, Physician Chief Complaint: awake alert sedated effect from opiods no bowel movement for 4 days poor appetite - Current Medication List Current Medications: Active Medications Calcitonin (Miacalcin [place] -) 200 units NS DAILY [facility] Last Admin: 08/07/17 10:46 Dose: 1 spray Diazepam (Valium -) 2 mg PO TID [facility] Last Admin: 08/07/17 05:59 Dose: 2 mg Docusate Sodium (Colace -) 100 mg PO TID [facility] Last Admin: 08/07/17 05:33 Dose: 100 mg Duloxetine HCl (Cymbalta -) 30 mg PO BID [facility] Last Admin: 08/07/17 09:06 Dose: 30 mg Fentanyl (Sublimaze Injection -) 50 mcg IVPUSH [id number] PRN PRN Reason: PAIN-PACU ORDER X 4 DOSES ONLY Ferrous Sulfate (Feosol -) 325 mg PO DAILY [facility] Last Admin: 08/07/17 09:06 Dose: 325 mg Gabapentin (Neurontin -) 800 mg PO QID [facility] Last Admin: 08/07/17 09:07 Dose: 800 mg Heparin Sodium (Porcine) (Heparin -) 5,000 unit SQ TID [facility] Last Admin: 08/07/17 05:33 Dose: 5,000 unit Hydromorphone HCl (Dilaudid Glass Laminating Operator -) 10 mg SENIOR MARKET INTELLIGENCE CONSULTANT SENIOR MARKET INTELLIGENCE CONSULTANT [facility] PRN Reason: Protocol Stop: 08/12/17 13:27 Last Admin: 08/06/17 19:09 Dose: 10 mg Lactated Ringer's (Lactated Ringers Solution) 1,000 mls @ 125 mls/hr IV ASDIR [facility] Last Admin: 08/06/17 14:16 Dose: Not Given Potassium Phosphate 30 mm/ (Sodium Chloride) 260 mls @ 62.5 mls/hr IVPB ONCE ONE Stop: 08/07/17 13:14 Last Admin: 08/07/17 10:43 Dose: 62.5 mls/hr Oxycodone HCl (Oxycontin -) 20 mg PO BID [facility] Last Admin: 08/07/17 09:06 Dose: 20 mg Promethazine HCl (Phenergan Injection -) 12.5 mg IVPB Q6H PRN PRN Reason: NAUSEA AND/OR VOMITING Senna (Senna Oral Solution -) 8.8 mg PO [facility] Last Admin: 08/06/17 21:37 Dose: 5 ml Topiramate (Topamax -) 100 mg PO BID [facility] Last Admin: 08/06/17 21:38 Dose: 100 mg - Objective Vital Signs: Vital Signs Temperature 99.2 F 08/07/17 06:00 Pulse Rate 89 08/07/17 08:00 Respiratory Rate 26 H 08/07/17 08:38 Blood Pressure 111/66 08/07/17 08:00 O2 Sat by Pulse Oximetry (%) 95 08/07/17 08:38 Constitutional: Yes: Mild Distress Eyes: Yes: WNL HENT: Yes: WNL Neck: Yes: WNL Cardiovascular: Yes: WNL Respiratory: Yes: WNL Gastrointestinal: Yes: WNL Genitourinary: Yes: WNL Musculoskeletal: Yes: Muscle Weakness Edema: No Peripheral Pulses WNL: Yes Integumentary: Yes: WNL Wound/Incision: Yes: Clean/Dry Neurological: Yes: Pre-Existing Deficit ...Motor Strength: LLE, RLE Psychiatric: Yes: Other Labs: CBC, BMP 08/07/17 07:15 08/07/17 07:15 INR, PTT INR 1.06 (0.82-1.09) 08/05/17 13:45 Problem List - Problems (1) Status post thoracic spinal fusion Code(s): Z98.1 - ARTHRODESIS STATUS (2) Back pain Code(s): M54.9 - DORSALGIA, UNSPECIFIED Assessment/Plan DIET STARTED D/W PATIENT TO EAT SO SHE CAN RECOVER FROM SX OOB TO CHAIR PER NEUROSURG RELISTOR STARTED FOR OPIOD BOWEL CONSTIPATION PAIN CONTROL DVT PROPHYLAXIS INCENTIVE SPIROMETRY
[2017-08-07] MEDS ORDERED: PT OWN MED DRAWER 7, Y5N ONE ×2 (12:26→21:25)
[2017-08-07] MEDS: TOPIRAMATE 100 MG TABLET PO SCH ×2 (12:28→21:30)
--- NOTE | 2017-08-07 12:59 | PN ---
Physical Exam: SUBJECTIVE: Patient seen and examined in the ICU. Pt c/o significant break through back pain. Valium added to pain regimen. (+) flatus, no BM. Relistor added. Pt remains afebrile. Pt tolerating regular diet, though appetite diminished. OBJECTIVE: Vital Signs Period Temp Pulse Resp BP Sys/Collins Pulse Ox Last 24 Hr 98.5 F-100 F 76-103 20-26 93-135/44-76 95-95 GENERAL: AAOx3, NAD at rest. LUNGS: Breath sounds equal, clear to auscultation bilaterally. No wheezes, and no crackles. No accessory muscle use. HEART: Regular rate and rhythm, normal S1 and S2 without murmur, rub or gallop. ABDOMEN: Soft, nontender, not distended, hypoactive bowel sounds, no guarding. BACK: Surgical dressing CDI. SHANTA drain with serosanguinous fluid. LOWER EXTREMITIES: Warm, well-perfused. No calf tenderness. No peripheral edema. Laboratory Results - last 24 hr 08/05/17 08/06/17 08/06/17 06:30 15:30 19:00 WBC 12.1 H RBC 3.03 L D Hgb 8.9 L D Hct 25.8 L D MCV 85.2 MCH 29.3 MCHC 34.3 RDW 14.3 Plt Count 155 MPV 9.0 Sodium Potassium Chloride Carbon Dioxide Anion Gap BUN Creatinine Random Glucose Calcium Phosphorus Magnesium Creatine Kinase 397 H Creatine Kinase Index 1.6 CK-MB (CK-2) 6.425 H Troponin I < 0.02 Blood Type A POSITIVE Antibody Screen Negative Crossmatch See Detail Crossmatch IS Only See Detail 08/07/17 08/07/17 07:15 07:15 WBC 11.3 H RBC 3.03 L Hgb 8.9 L Hct 25.7 L MCV 84.8 MCH 29.5 MCHC 34.8 RDW 14.7 Plt Count 147 MPV 8.5 Sodium 140 Potassium 3.6 Chloride 108 H Carbon Dioxide 24 Anion Gap 8 BUN 10 Creatinine 0.7 Random Glucose 111 H Calcium 7.9 L Phosphorus 1.7 L Magnesium 2.1 Creatine Kinase Creatine Kinase Index CK-MB (CK-2) Troponin I Blood Type Antibody Screen Crossmatch Crossmatch IS Only Active Medications Generic Name Dose Route Start Last Admin Trade Name Freq PRN Reason Stop Dose Admin Calcitonin 200 units 08/06/17 12:00 08/07/17 10:46 Miacalcin [place] - NS 1 spray DAILY [facility] Administration Diazepam 2 mg 08/07/17 02:30 08/07/17 05:59 Valium - PO 2 mg TID [facility] Administration Docusate Sodium 100 mg 08/06/17 14:00 08/07/17 05:33 Colace - PO 100 mg TID [facility] Administration Duloxetine HCl 30 mg 08/05/17 22:00 08/07/17 09:06 Cymbalta - PO 30 mg BID [facility] Administration Fentanyl 50 mcg 08/05/17 14:37 Sublimaze Injection - IVPUSH [id number] PRN PAIN-PACU ORDER X 4 DOSES ONLY Ferrous Sulfate 325 mg 08/06/17 10:00 08/07/17 09:06 Feosol - PO 325 mg DAILY [facility] Administration Gabapentin 800 mg 08/05/17 14:00 08/07/17 09:07 Neurontin - PO 800 mg QID [facility] Administration Heparin Sodium (Porcine) 5,000 unit 08/06/17 14:00 08/07/17 05:33 Heparin - SQ 5,000 unit TID [facility] Administration Hydromorphone HCl 10 mg 08/05/17 13:30 08/06/17 19:[address] Control Technician - EASEMENT MAN 08/12/17 13:27 10 mg EASEMENT MAN [facility] Administration Protocol Lactated Ringer's 1,000 mls @ 125 mls/hr 08/05/17 13:45 08/06/17 14:16 Lactated Ringers Solution IV Not Given ASDIR [facility] Potassium Phosphate 30 mm/ 260 mls @ 62.5 mls/hr 08/07/17 09:05 08/07/17 10: 43 Sodium Chloride IVPB 08/07/17 13:14 62.5 mls/hr ONCE ONE Administration Methylnaltrexone [place] 8 mg 08/07/17 11:30 Relistor - SQ DAILY [facility] Oxycodone HCl 20 mg 08/06/17 11:30 08/07/17 09:06 Oxycontin - PO 20 mg BID [facility] Administration Promethazine HCl 12.5 mg 08/05/17 13:26 Phenergan Injection - IVPB Q6H PRN NAUSEA AND/OR VOMITING Senna 8.8 mg 08/06/17 22:00 08/06/17 21:37 Senna Oral Solution - PO 5 ml HS [facility] Administration Topiramate 100 mg 08/05/17 22:00 08/07/17 12:28 Topamax - PO 100 mg BID [facility] Administration ASSESSMENT/PLAN: 36F with PMH of back pain, spondylosis, thoracic spinal instabilities, Lung Ca, AVMs in lung, TIA (05/16 lung tumor), pseudotumor cerebri, presents s/p elective thoracic spine surgery with Dr. Goodrich. # thoracic back pain - s/p T5-T10 lamincetomies, osteotomies with T5/6 costovertebral and T7-T10 transpedicular decompression, and correction of deformity with T5-T10 fusion by Dr. Goodrich on 08/05/17 - POD #2 - post-op care per Dr. Goodrich: monitor SHANTA drain, TLSO ordered (pt can begin mobilization without brace and when it arrives, pt should wear for OOB or ambulating > 5 mins), piña D/Johnny - incentive spirometry - pain control with Dilaudid pump, Oxycontin BID, Valium TID, and Neurontin QID - continue home med of Topamax for back pain - Calcitonin for bone support - Zofran prn and Phenergan prn for nausea # acute blood loss anemia - s/p 6U PRBCs this hospitalization, 2U today and 4U yesterday noemy-op - hgb stable - monitor for overt s/s of bleeding - transfuse prn - continue Feosol supplementation # constipation - Relistor added for opiod bowel constipation - continue Colace and Senna # FEN - Fluids: LR @ 125 ml/hr - Electrolytes: hypophosphatemia repleted with KPhos 30mm IVPB, continue to monitor - Nutrition: regular diet # Prophylaxis - DVT ppx with Heparin TID - deconditioning ppx with PT Visit type - Emergency Visit Emergency Visit: Yes ED Registration Date: 08/05/17 Care time: The patient presented to the Emergency Department on the above date and was hospitalized for further evaluation of their emergent condition. - New Patient This patient is new to me today: No - Critical Care Critical Care patient: Yes Total Critical Care Time (in minutes): 38 Critical Care Statement: The care of this patient involved high complexity decision making to prevent further life threatening deterioration of the patient 's condition and/or to evaluate & treat vital organ system(s) failure or risk of failure.
--- NOTE | 2017-08-07 13:23 | PN ---
Progress Note (short form) - Note Progress Note: Anesthesia postop/ pain management follow up POD#2 on cook sauce, still in pain, usin the cook sauce. Will continue cook sauce for now, will reevaluate tomorrow.
[2017-08-07] MEDS: Methylnaltrexone Bromide 12 MG/0.6 ML KIT SQ SCH (14:06)
[2017-08-07] MEDS: LACTATED RINGERS SOLUTION 1,000 ML IV SCH (15:45)
--- NOTE | 2017-08-07 18:03 | PN ---
Progress Note (short form) - Note Progress Note: notified by patient's family member that pt is behaving strangely and is worried about stroke. MD and nurse went to assess patient who was found to be lethargic but verbally responsive and not complaining of anything. Pt was found to have normal vitals and an unchanged physical exam. It was then realized that the patient's brother, Jarett, has been giving pushes of the dilaudid pump when the patient was sleeping. per Jarett, he thought he was supposed to push it every time the patient looked to be in any type of distress. Jarett was educated that only the patient should be pressing the button and explained the possibly fatal consequences of pressing the button when she is sleeping or too sedated to press it herself. Patient responded that he did not know that and that he will not press it again. -Zach Mauro MD PGY1
[2017-08-07] MEDS ORDERED: RANITIDINE HCL 150 MG TABLET (FP) PO ONE (18:15)
[2017-08-07] MEDS: HYDROmorphone *PCA* 10MG/50ML DISP.SYRIN PCA SCH (21:15)
[2017-08-07] MEDS: SENNOSIDES 8.8 MG/5 ML BULK BOTTLE PO SCH (21:30)
[2017-08-08] MEDS: HYDROmorphone *PCA* 10MG/50ML DISP.SYRIN PCA SCH ×4 (00:39→08:30)
[2017-08-08] MEDS: DOCUSATE SODIUM 100 MG CAPSULE (FP) PO SCH ×3 (06:21→22:01)
[2017-08-08] MEDS: HEPARIN NA (PORCINE) 5,000 UNITS/ML 1ML VIAL SQ SCH ×3 (06:22→22:01)
[2017-08-08] MEDS: diazePAM 2 MG TABLET PO SCH ×3 (06:22→22:01)
[2017-08-08 06:33] LABS: HEMATOCRIT 26.3 % (32.4-45.2); HEMOGLOBIN 9.4 GM/dL (10.7-15.3); MCH 30.7 pg (25.7-33.7); MCHC 35.8 g/dl (32.0-36.0); MEAN CELL VOLUME 85.7 fl (80-96); MEAN PLT VOLUME 8.8 fl (7.5-11.1); PLATELET COUNT 165 K/MM3 (134-434); RBC 3.07 M/mm3 (3.60-5.2); RDW 14.1 % (11.6-15.6); WHITE BLOOD COUNT 9.8 K/mm3 (4.0-10.0)
[2017-08-08 06:52] LABS: ANION GAP 5 (8-16); BLOOD UREA NITROGEN 10 mg/dL (7-18); CALCIUM 7.8 mg/dL (8.5-10.1); CHLORIDE 109 mmol/L (98-107); CO2 25 mmol/L (21-32); CREATININE 0.6 mg/dL (0.55-1.02); GLUCOSE,RANDOM 102 mg/dL (74-106); MAGNESIUM 1.9 mg/dL (1.8-2.4); PHOSPHOROUS 2.6 mg/dL (2.5-4.9); POTASSIUM 3.8 mmol/L (3.5-5.1); SODIUM 139 mmol/L (136-145)
--- NOTE | 2017-08-08 08:30 | PROC ---
Procedure Note Procedure: Asked by Dr. Edwards to pull the SHANTA drain. The drain was removed intact and a 4x4 gauze and tegaderm were applied. The surgical dressing was c/d/i with a gauze and tegaderm. This dressing was left in place.
[2017-08-08] MEDS: GABAPENTIN 400 MG CAPSULE (FP) PO SCH ×4 (09:30→22:01)
[2017-08-08] MEDS: oxyCODONE HCL 10 MG SUSTAINED ACTING TABLET PO SCH ×2 (09:30→22:01)
[2017-08-08] MEDS: FERROUS SO4 325 MG TABLET (FP) PO SCH (09:32)
[2017-08-08] MEDS: TOPIRAMATE 100 MG TABLET PO SCH ×2 (09:32→22:01)
[2017-08-08] MEDS: DULoxetine HCL 30 MG CAPSULE.DR (FP) PO SCH ×2 (09:33→22:01)
[2017-08-08] MEDS: Methylnaltrexone Bromide 12 MG/0.6 ML KIT SQ SCH (09:34)
[2017-08-08] MEDS: CALCITONIN - SALMON SYNTHETIC 3.7 ML SPRAY.PUMP NS SCH (09:35)
--- NOTE | 2017-08-08 10:54 | PN ---
Progress Note (short form) - Note Progress Note: POD #3. Follow-up for pain management. VSS. Pain score 7/10. Will continue ADVANCED MANUFACTURING CONSULTANT for now and follow up tomorrow. Perhaps microsoft exchange architect to po over the weekend.
--- NOTE | 2017-08-08 11:13 | PN ---
Progress Note, Physician Chief Complaint: AWAKE ALERT LETHARGIC POOR APPETITE NO BM WALKED WITH PT TODAY - Current Medication List Current Medications: Active Medications Calcitonin (Miacalcin [place] -) 200 units NS DAILY [facility] Last Admin: 08/08/17 09:35 Dose: 1 spray Diazepam (Valium -) 2 mg PO TID [facility] Last Admin: 08/08/17 06:22 Dose: 2 mg Docusate Sodium (Colace -) 100 mg PO TID [facility] Last Admin: 08/08/17 06:21 Dose: Not Given Duloxetine HCl (Cymbalta -) 30 mg PO BID [facility] Last Admin: 08/08/17 09:33 Dose: 30 mg Ferrous Sulfate (Feosol -) 325 mg PO DAILY [facility] Last Admin: 08/08/17 09:32 Dose: 325 mg Gabapentin (Neurontin -) 800 mg PO QID [facility] Last Admin: 08/08/17 09:30 Dose: 800 mg Heparin Sodium (Porcine) (Heparin -) 5,000 unit SQ TID [facility] Last Admin: 08/08/17 06:22 Dose: Not Given Hydromorphone HCl (Dilaudid Master Welder -) 10 mg YARD CALLER YARD CALLER [facility] PRN Reason: Protocol Stop: 08/12/17 13:27 Last Admin: 08/08/17 04:37 Dose: 0.4 mg Lactated Ringer's (Lactated Ringers Solution) 1,000 mls @ 125 mls/hr IV ASDIR [facility] Last Admin: 08/07/17 15:45 Dose: Not Given Methylnaltrexone [place] (Relistor -) 8 mg SQ DAILY [facility] Last Admin: 08/08/17 09:34 Dose: 8 mg Oxycodone HCl (Oxycontin -) 20 mg PO BID [facility] Last Admin: 08/08/17 09:30 Dose: 20 mg Promethazine HCl (Phenergan Injection -) 12.5 mg IVPB Q6H PRN PRN Reason: NAUSEA AND/OR VOMITING Senna (Senna Oral Solution -) 8.8 mg PO HS [facility] Last Admin: 08/07/17 21:30 Dose: 5 ml Topiramate (Topamax -) 100 mg PO BID [facility] Last Admin: 08/08/17 09:32 Dose: 100 mg - Objective Vital Signs: Vital Signs Temperature 98.5 F 08/08/17 10:22 Pulse Rate 80 08/08/17 10:22 Respiratory Rate 18 08/08/17 10:22 Blood Pressure 106/53 08/08/17 10:22 O2 Sat by Pulse Oximetry (%) 99 08/08/17 08:35 Constitutional: Yes: Moderate Distress Eyes: Yes: WNL HENT: Yes: WNL Neck: Yes: WNL Cardiovascular: Yes: WNL Respiratory: Yes: WNL Gastrointestinal: Yes: Tenderness Genitourinary: Yes: Incontinence Musculoskeletal: Yes: Back Pain, Muscle Weakness Extremities: Yes: WNL Edema: Yes Edema: LLE: Trace, RLE: Trace Peripheral Pulses WNL: Yes Integumentary: Yes: WNL Wound/Incision: Yes: Dressing Dry and Intact Neurological: Yes: Pre-Existing Deficit, Weakness ...Motor Strength: LLE, RLE Psychiatric: Yes: WNL Labs: CBC, BMP 08/08/17 05:00 08/08/17 05:00 INR, PTT INR 1.06 (0.82-1.09) 08/05/17 13:45 Problem List - Problems (1) Status post thoracic spinal fusion Code(s): Z98.1 - ARTHRODESIS STATUS (2) Back pain Code(s): M54.9 - DORSALGIA, UNSPECIFIED Assessment/Plan RELISTOR ADDED FOR OPIAD BOWEL STOOL SOFTENERS/OOB TO CHAIR PT EVAL APPRECIATED WALKED 50 FT + PREDUCE PAIN MEDS SLOWLY NEUROSURGERY F/U TENDER ABD?? MONITOR TO R/O ILEUS DVT PROPHYLAXIS LABS REVIEWED
--- NOTE | 2017-08-08 11:20 | PN ---
Physical Exam: SUBJECTIVE: Patient seen and examined No acute events overnight. Pt states that back pain is improved compared to yesterday, currently a 6/10. She denies having a BM since her surgery and states that she has no appetite so she hasn't really eaten any solids yet. She complains of intermittent nausea. OBJECTIVE: Vital Signs Period Temp Pulse Resp BP Sys/Collins Pulse Ox Last 24 Hr 98.3 F-99.6 F 80-101 18-26 104-123/50-96 99-99 GENERAL: obese, middle-aged female, lying on side, in NAD HEENT: NC, AT LUNGS: shallow breath sounds, no rales, no rhonchi. SHANTA drain with minimal blood- tinged fluid HEART: tachycardic, regular rhythm, no murmurs. ABDOMEN: obese abdomen, soft, normoactive BS, minimally tender diffusely EXTREMITIES: 2+ pulses, warm, well-perfused, no edema. NEUROLOGICAL: Cranial nerves II through XII grossly intact. Normal speech, gait not observed. Laboratory Results - last 24 hr 08/05/17 08/08/17 08/08/17 06:30 05:00 05:00 WBC 9.8 RBC 3.07 L Hgb 9.4 L Hct 26.3 L MCV 85.7 MCH 30.7 MCHC 35.8 RDW 14.1 Plt Count 165 MPV 8.8 Sodium 139 Potassium 3.8 Chloride 109 H Carbon Dioxide 25 Anion Gap 5 L BUN 10 Creatinine 0.6 Random Glucose 102 Calcium 7.8 L Phosphorus 2.6 Magnesium 1.9 Blood Type A POSITIVE Antibody Screen Negative Crossmatch See Detail Crossmatch IS Only See Detail Active Medications Generic Name Dose Route Start Last Admin Trade Name Freq PRN Reason Stop Dose Admin Calcitonin 200 units 08/06/17 12:00 08/08/17 09:35 Miacalcin [place] - NS 1 spray DAILY [facility] Administration Diazepam 2 mg 08/07/17 02:30 08/08/17 06:22 Valium - PO 2 mg TID [facility] Administration Docusate Sodium 100 mg 08/06/17 14:00 08/08/17 06:21 Colace - PO Not Given TID [facility] Duloxetine HCl 30 mg 08/05/17 22:00 08/08/17 09:33 Cymbalta - PO 30 mg BID [facility] Administration Ferrous Sulfate 325 mg 08/06/17 10:00 08/08/17 09:32 Feosol - PO 325 mg DAILY [facility] Administration Gabapentin 800 mg 08/05/17 14:00 08/08/17 09:30 Neurontin - PO 800 mg QID [facility] Administration Heparin Sodium (Porcine) 5,000 unit 08/06/17 14:00 08/08/17 06:22 Heparin - SQ Not Given TID [facility] Hydromorphone HCl 10 mg 08/05/17 13:30 08/08/17 04:37 Dilaudid Final Armature Tester - FOUNDRY HELPER 08/12/17 13:27 0.4 mg FOUNDRY HELPER [facility] Administration Protocol Methylnaltrexone [place] 8 mg 08/07/17 11:30 08/08/17 09:34 Relistor - SQ 8 mg DAILY [facility] Administration Oxycodone HCl 20 mg 08/06/17 11:30 08/08/17 09:30 Oxycontin - PO 20 mg BID [facility] Administration Promethazine HCl 12.5 mg 08/05/17 13:26 Phenergan Injection - IVPB Q6H PRN NAUSEA AND/OR VOMITING Senna 8.8 mg 08/06/17 22:00 08/07/17 21:30 Senna Oral Solution - PO 5 ml HS [facility] Administration Topiramate 100 mg 08/05/17 22:00 08/08/17 09:32 Topamax - PO 100 mg BID [facility] Administration ASSESSMENT/PLAN: 36F with PMH of back pain, spondylosis, thoracic spinal instabilities, Lung Ca, AVMs in lung, TIA (05/16 lung tumor) and pseudotumor cerebri, now s/p elective thoracic spine surgery with Dr. Goodrich, POD# 3. Neuro # thoracic back pain - s/p T5-T10 lamincetomies, osteotomies with T5/6 costovertebral and T7-T10 transpedicular decompression, and correction of deformity with T5-T10 fusion by Dr. Goodrich on 08/05/17. - POD #3 - monitor SHANTA drain: 235 cc yesterday, 40 so far this am - TLSO ordered (pt can begin mobilization without brace and when it arrives, pt should wear for OOB or ambulating > 5 mins) - incentive spirometry - pain control with Dilaudid pump, Oxycontin BID, Valium TID, and Neurontin QID - continue topamax - Calcitonin for bone support - Zofran prn and Phenergan prn for nausea # acute blood loss anemia - s/p 6U PRBCs this hospitalization - hgb stable at 9.4 - monitor for overt s/s of bleeding - transfuse prn - continue Feosol supplementation GI # constipation - continue Colace, Senna, and Relistor - monitor for BM FEN/ppx - Fluids: po - Electrolytes: wnl - Nutrition: regular diet - DVT ppx with Heparin TID - deconditioning ppx with PT Dispo -per neurosurgery, likely transfer to floors mayda Case discussed with attending, Dr. Stone. -Zach Mauro MD PGY1 ICU Team Visit type - Emergency Visit Emergency Visit: Yes ED Registration Date: 08/05/17 Care time: The patient presented to the Emergency Department on the above date and was hospitalized for further evaluation of their emergent condition. - New Patient This patient is new to me today: Yes Date on this admission: 08/08/17 - Critical Care Critical Care patient: Yes Total Critical Care Time (in minutes): 35 Critical Care Statement: The care of this patient involved high complexity decision making to prevent further life threatening deterioration of the patient 's condition and/or to evaluate & treat vital organ system(s) failure or risk of failure.
[2017-08-08] MEDS ORDERED: ONDANSETRON 4 MG/2 ML VIAL IVPB SCH (11:30)
--- NOTE | 2017-08-08 11:44 | PN ---
Teaching Attending Note Name of Resident: Zach Mauro ATTENDING PHYSICIAN STATEMENT I saw and evaluated the patient. I reviewed the resident's note and discussed the case with the resident. I agree with the resident's findings and plan as documented. SUBJECTIVE: Patient seen and examined in the ICU. Reports significant pain, but is currently drowsy and is falling asleep easily. No CP or SOB. No acute events overnight. Drain removed by PA this AM without incident. Nausea feels better. Still no BM. OBJECTIVE: Intake & Output 08/05/17 08/06/17 08/07/17 08/08/17 23:59 23:59 23:59 23:59 Intake Total 5336 1900 500 Output Total 4490 2500 1485 40 Balance 846 -600 -985 -40 Weight 256 lb 9 oz 254 lb 254 lb Last Vital Signs Temp Pulse Resp BP Pulse Ox 98.5 F 80 18 106/53 99 08/08/17 10:22 08/08/17 10:22 08/08/17 10:22 08/08/17 10:22 08/08/17 08:35 Active Medications Calcitonin (Miacalcin [place] -) 200 units NS DAILY [facility] Last Admin: 08/08/17 09:35 Dose: 1 spray Diazepam (Valium -) 2 mg PO TID [facility] Last Admin: 08/08/17 06:22 Dose: 2 mg Docusate Sodium (Colace -) 100 mg PO TID [facility] Last Admin: 08/08/17 06:21 Dose: Not Given Duloxetine HCl (Cymbalta -) 30 mg PO BID [facility] Last Admin: 08/08/17 09:33 Dose: 30 mg Ferrous Sulfate (Feosol -) 325 mg PO DAILY [facility] Last Admin: 08/08/17 09:32 Dose: 325 mg Gabapentin (Neurontin -) 800 mg PO QID [facility] Last Admin: 08/08/17 09:30 Dose: 800 mg Heparin Sodium (Porcine) (Heparin -) 5,000 unit SQ TID [facility] Last Admin: 08/08/17 06:22 Dose: Not Given Hydromorphone HCl (Dilaudid Plaster Helper -) 10 mg COMMERCIAL CREDIT ANALYST COMMERCIAL CREDIT ANALYST [facility] PRN Reason: Protocol Stop: 08/12/17 13:27 Last Admin: 08/08/17 04:37 Dose: 0.4 mg Methylnaltrexone [place] (Relistor -) 8 mg SQ DAILY [facility] Last Admin: 08/08/17 09:34 Dose: 8 mg Ondansetron HCl (Zofran Injection) 8 mg IVPB Q6H [facility] Oxycodone HCl (Oxycontin -) 20 mg PO BID [facility] Last Admin: 08/08/17 09:30 Dose: 20 mg Senna (Senna Oral Solution -) 8.8 mg PO HS [facility] Last Admin: 08/07/17 21:30 Dose: 5 ml Topiramate (Topamax -) 100 mg PO BID [facility] Last Admin: 08/08/17 09:32 Dose: 100 mg Gen: Sleepy, NAD at rest Heart: RRR Lung: decreased breath sounds at the bases Abd: soft, nontender Ext: no edema Drain: serosanguinous fluid Laboratory Results - last 24 hr 08/05/17 08/08/17 08/08/17 06:30 05:00 05:00 WBC 9.8 RBC 3.07 L Hgb 9.4 L Hct 26.3 L MCV 85.7 MCH 30.7 MCHC 35.8 RDW 14.1 Plt Count 165 MPV 8.8 Sodium 139 Potassium 3.8 Chloride 109 H Carbon Dioxide 25 Anion Gap 5 L BUN 10 Creatinine 0.6 Random Glucose 102 Calcium 7.8 L Phosphorus 2.6 Magnesium 1.9 Blood Type A POSITIVE Antibody Screen Negative Crossmatch See Detail Crossmatch IS Only See Detail ASSESSMENT AND PLAN: Thoracic Spondylosis/Scoliosis T5-T10 laminectomies/decompression/fusion Acute Blood Loss Anemia Pulmonary AVM s/p RLL lobectomy (?) Sleep Apnea - pain control per anesthesia - incentive spirometry - monitor H/H - Normal transfusion thresholds - IVF - PO/piña/PT per surgery - bowel regimen - DVT prophylaxis - disposition per surgery Dr Stone Critical care time spent in reviewing chart, evaluating patient and formulating plan - 36 minutes.
[2017-08-08] MEDS: ONDANSETRON 4 MG/2 ML VIAL IVPB SCH ×2 (12:25→14:19)
[2017-08-08] MEDS ORDERED: PT OWN MED DRAWER 7, Y5N ONE (21:47)
[2017-08-08] MEDS: SENNOSIDES 8.8 MG/5 ML BULK BOTTLE PO SCH (22:01)
[2017-08-09] MEDS: HYDROmorphone *PCA* 10MG/50ML DISP.SYRIN PCA SCH ×2 (00:30→00:45)
[2017-08-09] MEDS: ONDANSETRON 4 MG/2 ML VIAL IVPB PRN ×2 (00:48→14:38)
[2017-08-09] MEDS: DOCUSATE SODIUM 100 MG CAPSULE (FP) PO SCH ×3 (05:48→21:57)
[2017-08-09] MEDS: HEPARIN NA (PORCINE) 5,000 UNITS/ML 1ML VIAL SQ SCH ×3 (05:48→21:57)
[2017-08-09] MEDS: diazePAM 2 MG TABLET PO SCH ×3 (05:48→21:57)
[2017-08-09 05:58] LABS: BASO % 0.2 % (0-2.0); EOS % 3.3 % (0-4.5); HEMATOCRIT 24.7 % (32.4-45.2); LYMPH % 15.8 % (8-40); MCH 31.1 pg (25.7-33.7); MCHC 36.3 g/dl (32.0-36.0); MEAN CELL VOLUME 85.8 fl (80-96); MEAN PLT VOLUME 8.4 fl (7.5-11.1); MONO % 5.1 % (3.8-10.2); NEUT % 75.6 % (42.8-82.8); PLATELET COUNT 188 K/MM3 (134-434); RBC 2.88 M/mm3 (3.60-5.2); RDW 14.5 % (11.6-15.6); WHITE BLOOD COUNT 10.3 K/mm3 (4.0-10.0)
[2017-08-09 06:20] LABS: CHLORIDE 109 mmol/L (98-107); POTASSIUM 3.6 mmol/L (3.5-5.1); SODIUM 140 mmol/L (136-145)
[2017-08-09 06:29] LABS: ALBUMIN 2.8 g/dl (3.4-5.0); ALK PHOS 52 U/L (45-117); ANION GAP 5 (8-16); BILIRUBIN,TOTAL 0.3 mg/dL (0.2-1.0); BLOOD UREA NITROGEN 10 mg/dL (7-18); CALCIUM 8.1 mg/dL (8.5-10.1); CO2 26 mmol/L (21-32); CREATININE 0.8 mg/dL (0.55-1.02); GLUCOSE,RANDOM 151 mg/dL (74-106); MAGNESIUM 1.9 mg/dL (1.8-2.4); PHOSPHOROUS 3.3 mg/dL (2.5-4.9); SGOT/AST 26 U/L (15-37); SGPT/ALT 37 U/L (12-78); TOT PROT 5.6 g/dl (6.4-8.2)
[2017-08-09] MEDS ORDERED: oxyCODONE HCL 5 MG TABLET PO PRN (09:27)
--- NOTE | 2017-08-09 09:37 | PN ---
Progress Note (short form) - Note Progress Note: Anesthesiology Pain Service POD#4 s/p thoracic decompression and laminectomy with fusion on post-op METAL FABRICATOR HELPER. Pt. is in bed, resting. She is in NAD, tolerating PO. Pain is present and she has been using METAL FABRICATOR HELPER as well as PO oxycontin BID. VSS. 36 y.o. woman s/p thoracic laminectomy with stable post-operative course. Will d/c METAL FABRICATOR HELPER today and add PRN doses of PO oxycodone to supplement the oxycontin. I d/w pt. as well as her RN; they are both amenable to this plan. Have also encouraged the patient to be OOB as much as possible.
[2017-08-09] MEDS: FERROUS SO4 325 MG TABLET (FP) PO SCH (09:59)
[2017-08-09] MEDS: GABAPENTIN 400 MG CAPSULE (FP) PO SCH ×4 (10:00→21:57)
[2017-08-09] MEDS: oxyCODONE HCL 10 MG SUSTAINED ACTING TABLET PO SCH ×2 (10:00→21:57)
[2017-08-09] MEDS: TOPIRAMATE 100 MG TABLET PO SCH ×2 (10:01→21:57)
[2017-08-09] MEDS: Methylnaltrexone Bromide 12 MG/0.6 ML KIT SQ SCH (10:02)
[2017-08-09] MEDS: DULoxetine HCL 30 MG CAPSULE.DR (FP) PO SCH ×2 (10:08→21:57)
[2017-08-09] MEDS: CALCITONIN - SALMON SYNTHETIC 3.7 ML SPRAY.PUMP NS SCH (10:09)
[2017-08-09] MEDS ORDERED: HYDROmorphone HCL CARPU-JECT 1 MG/1 ML DISP.SYRIN IVPUSH ONE (10:30)
--- NOTE | 2017-08-09 10:33 | PN ---
Progress Note (short form) - Note Progress Note: PULMONARY Pt seen and examined in the ICU. Dilaudid UTILITIES OPERATOR stopped this AM. Continues to complain about pain. No fevers or chills. No shortness of breath or chest pain. No BM but +flatus. Last Vital Signs Temp Pulse Resp BP Pulse Ox 98.7 F 93 H 17 106/54 97 08/09/17 06:00 08/09/17 08:00 08/09/17 08:00 08/09/17 08:00 08/09/17 08:00 Intake & Output 08/06/17 08/07/17 08/08/17 08/09/17 23:59 23:59 23:59 23:59 Intake Total 1900 500 265 Output Total 2500 1485 40 Balance -600 -985 225 Weight 116.375 kg 115.212 kg 115.212 kg 116.483 kg Gen: NAD at rest Heart: RRR Lung: decreased breath sounds at the bases Abd: soft, nontender Ext: no edema CBC, BMP 08/09/17 05:40 08/09/17 05:40 Active Medications Calcitonin (Miacalcin [place] -) 200 units NS DAILY [facility] Last Admin: 08/09/17 10:09 Dose: 1 spray Diazepam (Valium -) 2 mg PO TID [facility] Last Admin: 08/09/17 05:48 Dose: 2 mg Docusate Sodium (Colace -) 100 mg PO TID [facility] Last Admin: 08/09/17 05:48 Dose: Not Given Duloxetine HCl (Cymbalta -) 30 mg PO BID [facility] Last Admin: 08/09/17 10:08 Dose: 30 mg Ferrous Sulfate (Feosol -) 325 mg PO DAILY [facility] Last Admin: 08/09/17 09:59 Dose: 325 mg Gabapentin (Neurontin -) 800 mg PO QID [facility] Last Admin: 08/09/17 10:00 Dose: 800 mg Heparin Sodium (Porcine) (Heparin -) 5,000 unit SQ TID [facility] Last Admin: 08/09/17 05:48 Dose: 5,000 unit Hydromorphone HCl (Dilaudid Injection -) 1 mg IVPUSH ONCE ONE Stop: 08/09/17 10:31 Methylnaltrexone [place] (Relistor -) 8 mg SQ DAILY [facility] Last Admin: 08/09/17 10:02 Dose: 8 mg Ondansetron HCl (Zofran Injection) 8 mg IVPB TID PRN PRN Reason: NAUSEA Last Admin: 08/09/17 00:48 Dose: 8 mg Oxycodone HCl (Oxycontin -) 20 mg PO BID [facility] Last Admin: 08/09/17 10:00 Dose: 20 mg Oxycodone HCl (Roxicodone -) 5 mg PO Q3H PRN PRN Reason: PAIN LEVEL 1-5 Oxycodone HCl (Roxicodone -) 10 mg PO Q3H PRN PRN Reason: PAIN LEVEL 6-10 Senna (Senna Oral Solution -) 8.8 mg PO HS [facility] Last Admin: 08/08/17 22:01 Dose: Not Given Topiramate (Topamax -) 100 mg PO BID [facility] Last Admin: 08/09/17 10:01 Dose: 100 mg A/P Thoracic Spondylosis/Scoliosis T5-T10 laminectomies/decompression/fusion Acute Blood Loss Anemia Pulmonary AVM s/p RLL lobectomy - pain control - incentive spirometry - monitor H/H - transfuse as needed - PO as tolerated - rehab/PT - bowel regimen - DVT prophylaxis - disposition per surgery
[2017-08-09] MEDS ORDERED: MORPHINE SULFATE 10 MG/1 ML *VIAL IVPUSH ONE (12:00)
[2017-08-09] MEDS: oxyCODONE HCL 5 MG TABLET PO PRN ×3 (14:39→20:34)
[2017-08-09] MEDS ORDERED: IRON SUCROSE INJECTION 300 MG in SODIUM CHLORIDE 235 ML IVPB ONE (21:01)
--- NOTE | 2017-08-09 21:07 | PN ---
Progress Note, Physician History of Present Illness: NAD, walked with PT short distance, weak candidate for SNF - Current Medication List Current Medications: Active Medications Calcitonin (Miacalcin [place] -) 200 units NS DAILY [facility] Last Admin: 08/09/17 10:09 Dose: 1 spray Diazepam (Valium -) 2 mg PO TID [facility] Last Admin: 08/09/17 14:38 Dose: 2 mg Docusate Sodium (Colace -) 100 mg PO TID [facility] Last Admin: 08/09/17 14:39 Dose: 100 mg Duloxetine HCl (Cymbalta -) 30 mg PO BID [facility] Last Admin: 08/09/17 10:08 Dose: 30 mg Ferrous Sulfate (Feosol -) 325 mg PO DAILY [facility] Last Admin: 08/09/17 09:59 Dose: 325 mg Gabapentin (Neurontin -) 800 mg PO QID [facility] Last Admin: 08/09/17 17:35 Dose: 800 mg Heparin Sodium (Porcine) (Heparin -) 5,000 unit SQ TID [facility] Last Admin: 08/09/17 14:38 Dose: 5,000 unit [place] Sucrose 300 mg/ Sodium (Chloride) 250 mls @ 250 mls/hr IVPB ONCE ONE Stop: 08/09/17 22:00 Methylnaltrexone [place] (Relistor -) 8 mg SQ DAILY [facility] Last Admin: 08/09/17 10:02 Dose: 8 mg Ondansetron HCl (Zofran Injection) 8 mg IVPB TID PRN PRN Reason: NAUSEA Last Admin: 08/09/17 14:38 Dose: 8 mg Oxycodone HCl (Oxycontin -) 20 mg PO BID [facility] Last Admin: 08/09/17 10:00 Dose: 20 mg Oxycodone HCl (Roxicodone -) 5 mg PO Q3H PRN PRN Reason: PAIN LEVEL 1-5 Oxycodone HCl (Roxicodone -) 10 mg PO Q3H PRN PRN Reason: PAIN LEVEL 6-10 Last Admin: 08/09/17 20:34 Dose: 10 mg Senna (Senna Oral Solution -) 8.8 mg PO [facility] Last Admin: 08/08/17 22:01 Dose: Not Given Topiramate (Topamax -) 100 mg PO BID [facility] Last Admin: 08/09/17 10:01 Dose: 100 mg - Objective Vital Signs: Vital Signs Temperature 99.0 F 08/09/17 18:00 Pulse Rate 94 H 08/09/17 20:00 Respiratory Rate 22 08/09/17 20:00 Blood Pressure 109/55 08/09/17 20:00 O2 Sat by Pulse Oximetry (%) 98 08/09/17 19:42 Constitutional: Yes: Well Nourished, No Distress, Calm Cardiovascular: Yes: Regular Rate and Rhythm Respiratory: Yes: Regular Gastrointestinal: Yes: Soft, Hypoactive Bowel Sounds Musculoskeletal: Yes: Back Pain Extremities: Yes: WNL Edema: No Peripheral Pulses WNL: Yes Neurological: Yes: Alert, Oriented Psychiatric: Yes: Alert, Oriented Labs: CBC, BMP 08/09/17 05:40 08/09/17 05:40 INR, PTT INR 1.06 (0.82-1.09) 08/05/17 13:45 Problem List - Problems (1) Anemia Assessment/Plan: 2/2 iron deficiency and blood loss venofer received several units of PRBC post op monitor trend Code(s): D64.9 - ANEMIA, UNSPECIFIED (2) Status post thoracic spinal fusion Assessment/Plan: seen by NS pain management physical therapy candidate for SNF Code(s): Z98.1 - ARTHRODESIS STATUS (3) Constipation Assessment/Plan: opioid induced relistor senna colace Code(s): K59.00 - CONSTIPATION, UNSPECIFIED Qualifiers: Constipation type: drug induced constipation Qualified Code(s): K59.03 - Drug induced constipation Assessment/Plan see problem list
[2017-08-09] MEDS: SENNOSIDES 8.8 MG/5 ML BULK BOTTLE PO SCH (21:57)
[2017-08-10] MEDS: oxyCODONE HCL 5 MG TABLET PO PRN ×2 (02:56→06:32)
[2017-08-10 05:52] LABS: BASO % 0.4 % (0-2.0); EOS % 4.4 % (0-4.5); HEMATOCRIT 23.5 % (32.4-45.2); HEMOGLOBIN 8.5 GM/dL (10.7-15.3); LYMPH % 24.2 % (8-40); MCH 30.8 pg (25.7-33.7); MCHC 36.2 g/dl (32.0-36.0); MEAN PLT VOLUME 8.4 fl (7.5-11.1); MONO % 5.4 % (3.8-10.2); NEUT % 65.6 % (42.8-82.8); PLATELET COUNT 203 K/MM3 (134-434); RBC 2.77 M/mm3 (3.60-5.2); RDW 14.2 % (11.6-15.6); WHITE BLOOD COUNT 9.1 K/mm3 (4.0-10.0)
[2017-08-10 06:21] LABS: ANION GAP 3 (8-16); BLOOD UREA NITROGEN 12 mg/dL (7-18); CHLORIDE 108 mmol/L (98-107); CO2 28 mmol/L (21-32); CREATININE 0.7 mg/dL (0.55-1.02); GLUCOSE,RANDOM 104 mg/dL (74-106); MAGNESIUM 1.9 mg/dL (1.8-2.4); PHOSPHOROUS 3.4 mg/dL (2.5-4.9); POTASSIUM 3.8 mmol/L (3.5-5.1); SODIUM 139 mmol/L (136-145)
[2017-08-10] MEDS: diazePAM 2 MG TABLET PO SCH ×3 (06:32→21:23)
[2017-08-10] MEDS: HEPARIN NA (PORCINE) 5,000 UNITS/ML 1ML VIAL SQ SCH ×3 (06:32→21:23)
[2017-08-10] MEDS: DOCUSATE SODIUM 100 MG CAPSULE (FP) PO SCH ×3 (06:32→21:30)
[2017-08-10] MEDS ORDERED: PT OWN MED DRAWER 7, Y5N ONE (09:50)
[2017-08-10] MEDS: FERROUS SO4 325 MG TABLET (FP) PO SCH (09:53)
[2017-08-10] MEDS: DULoxetine HCL 30 MG CAPSULE.DR (FP) PO SCH ×2 (09:53→21:23)
[2017-08-10] MEDS: GABAPENTIN 400 MG CAPSULE (FP) PO SCH ×4 (09:53→21:23)
[2017-08-10] MEDS: oxyCODONE HCL 10 MG SUSTAINED ACTING TABLET PO SCH ×2 (09:53→21:23)
[2017-08-10] MEDS: TOPIRAMATE 100 MG TABLET PO SCH ×2 (09:54→21:23)
[2017-08-10] MEDS: CALCITONIN - SALMON SYNTHETIC 3.7 ML SPRAY.PUMP NS SCH (10:01)
--- NOTE | 2017-08-10 10:51 | PN ---
Progress Note (short form) - Note Progress Note: PULMONARY Pt seen and examined in the ICU. States pain not controlled but pt sleeping most of day per nursing. No fevers or chills. No shortness of breath or chest pain. Last Vital Signs Temp Pulse Resp BP Pulse Ox 99.2 F 94 H 21 116/91 98 08/10/17 10:00 08/10/17 10:00 08/10/17 10:00 08/10/17 10:00 08/10/17 08:00 Intake & Output 08/07/17 08/08/17 08/09/17 08/10/17 23:59 23:59 23:59 23:59 Intake Total 500 265 720 Output Total 1485 40 Balance -985 225 720 Weight 115.212 kg 115.212 kg 116.483 kg 115.938 kg Gen: NAD at rest Heart: RRR Lung: decreased breath sounds at the bases Abd: soft, nontender Ext: no edema CBC, BMP 08/10/17 05:30 08/10/17 05:30 Active Medications Calcitonin (Miacalcin [place] -) 200 units NS DAILY [facility] Last Admin: 08/10/17 10:01 Dose: 1 spray Diazepam (Valium -) 2 mg PO TID [facility] Last Admin: 08/10/17 06:32 Dose: 2 mg Docusate Sodium (Colace -) 100 mg PO TID [facility] Last Admin: 08/10/17 06:32 Dose: Not Given Duloxetine HCl (Cymbalta -) 30 mg PO BID [facility] Last Admin: 08/10/17 09:53 Dose: 30 mg Ferrous Sulfate (Feosol -) 325 mg PO DAILY [facility] Last Admin: 08/10/17 09:53 Dose: 325 mg Gabapentin (Neurontin -) 800 mg PO QID [facility] Last Admin: 08/10/17 09:53 Dose: 800 mg Heparin Sodium (Porcine) (Heparin -) 5,000 unit SQ TID [facility] Last Admin: 08/10/17 06:32 Dose: 5,000 unit Methylnaltrexone [place] (Relistor -) 8 mg SQ DAILY [facility] Last Admin: 08/09/17 10:02 Dose: 8 mg Ondansetron HCl (Zofran Injection) 8 mg IVPB TID PRN PRN Reason: NAUSEA Last Admin: 08/09/17 14:38 Dose: 8 mg Oxycodone HCl (Oxycontin -) 20 mg PO BID [facility] Last Admin: 08/10/17 09:53 Dose: 20 mg Oxycodone HCl (Roxicodone -) 5 mg PO Q3H PRN PRN Reason: PAIN LEVEL 1-5 Oxycodone HCl (Roxicodone -) 10 mg PO Q3H PRN PRN Reason: PAIN LEVEL 6-10 Last Admin: 08/10/17 06:32 Dose: 10 mg Senna (Senna Oral Solution -) 8.8 mg PO [facility] Last Admin: 08/09/17 21:57 Dose: Not Given Topiramate (Topamax -) 100 mg PO BID [facility] Last Admin: 08/10/17 09:54 Dose: 100 mg A/P Thoracic Spondylosis/Scoliosis T5-T10 laminectomies/decompression/fusion Acute Blood Loss Anemia Pulmonary AVM s/p RLL lobectomy - pain control - incentive spirometry - monitor H/H - transfuse as needed - PO as tolerated - rehab/PT - bowel regimen - DVT prophylaxis - disposition per surgery
[2017-08-10] MEDS: ONDANSETRON 4 MG/2 ML VIAL IVPB PRN (12:15)
[2017-08-10] MEDS: Methylnaltrexone Bromide 12 MG/0.6 ML KIT SQ SCH (13:09)
[2017-08-10] MEDS: SENNOSIDES 8.8 MG/5 ML BULK BOTTLE PO SCH (21:30)
[2017-08-11] MEDS: oxyCODONE HCL 5 MG TABLET PO PRN ×2 (03:41→12:22)
[2017-08-11] MEDS: DOCUSATE SODIUM 100 MG CAPSULE (FP) PO SCH ×3 (06:04→22:55)
[2017-08-11] MEDS: HEPARIN NA (PORCINE) 5,000 UNITS/ML 1ML VIAL SQ SCH ×3 (06:04→22:56)
[2017-08-11] MEDS: diazePAM 2 MG TABLET PO SCH ×3 (06:04→22:59)
[2017-08-11] MEDS: GABAPENTIN 400 MG CAPSULE (FP) PO SCH ×4 (10:23→22:56)
[2017-08-11] MEDS: CALCITONIN - SALMON SYNTHETIC 3.7 ML SPRAY.PUMP NS SCH (10:23)
[2017-08-11] MEDS: DULoxetine HCL 30 MG CAPSULE.DR (FP) PO SCH ×2 (10:23→22:55)
[2017-08-11] MEDS: oxyCODONE HCL 10 MG SUSTAINED ACTING TABLET PO SCH ×2 (10:24→22:57)
[2017-08-11] MEDS: FERROUS SO4 325 MG TABLET (FP) PO SCH (10:25)
[2017-08-11] MEDS: TOPIRAMATE 100 MG TABLET PO SCH ×2 (10:25→23:00)
--- NOTE | 2017-08-11 10:52 | PN ---
Teaching Attending Note Name of Resident: Hilda Banks ATTENDING PHYSICIAN STATEMENT I saw and evaluated the patient. I reviewed the resident's note and discussed the case with the resident. I agree with the resident's findings and plan as documented. SUBJECTIVE: Pt seen and examined in the ICU. Still with back pain. Has not moved bowels since 08/08. +flatus. OBJECTIVE: Last Vital Signs Temp Pulse Resp BP Pulse Ox 98.9 F 86 18 115/57 98 08/11/17 10:00 08/11/17 10:00 08/11/17 10:00 08/11/17 10:00 08/11/17 08:27 Intake & Output 08/08/17 08/09/17 08/10/17 08/11/17 23:59 23:59 23:59 23:59 Intake Total 265 720 480 Output Total 40 Balance 225 720 480 Weight 115.212 kg 116.483 kg 115.938 kg 115.485 kg Gen: NAD in chair Heart: RRR Lung: decreased breath sounds at the bases Abd: soft, nontender Ext: no edema CBC, BMP 08/10/17 05:30 08/10/17 05:30 Active Medications Calcitonin (Miacalcin [place] -) 200 units NS DAILY [facility] Last Admin: 08/11/17 10:23 Dose: 1 spray Diazepam (Valium -) 2 mg PO TID [facility] Last Admin: 08/11/17 06:04 Dose: 2 mg Docusate Sodium (Colace -) 100 mg PO TID [facility] Last Admin: 08/11/17 06:04 Dose: Not Given Duloxetine HCl (Cymbalta -) 30 mg PO BID [facility] Last Admin: 08/11/17 10:23 Dose: 30 mg Ferrous Sulfate (Feosol -) 325 mg PO DAILY [facility] Last Admin: 08/11/17 10:25 Dose: 325 mg Gabapentin (Neurontin -) 800 mg PO QID [facility] Last Admin: 08/11/17 10:23 Dose: 800 mg Heparin Sodium (Porcine) (Heparin -) 5,000 unit SQ TID [facility] Last Admin: 08/11/17 06:04 Dose: 5,000 unit Methylnaltrexone [place] (Relistor -) 8 mg SQ DAILY [facility] Last Admin: 08/10/17 13:09 Dose: 8 mg Ondansetron HCl (Zofran Injection) 8 mg IVPB TID PRN PRN Reason: NAUSEA Last Admin: 08/10/17 12:15 Dose: 8 mg Oxycodone HCl (Oxycontin -) 20 mg PO BID [facility] Last Admin: 08/11/17 10:24 Dose: 20 mg Oxycodone HCl (Roxicodone -) 5 mg PO Q3H PRN PRN Reason: PAIN LEVEL 1-5 Oxycodone HCl (Roxicodone -) 10 mg PO Q3H PRN PRN Reason: PAIN LEVEL 6-10 Last Admin: 08/11/17 03:41 Dose: 10 mg Senna (Senna Oral Solution -) 8.8 mg PO HS [facility] Last Admin: 08/10/17 21:30 Dose: Not Given Topiramate (Topamax -) 100 mg PO BID [facility] Last Admin: 08/11/17 10:25 Dose: 100 mg ASSESSMENT AND PLAN: Thoracic Spondylosis/Scoliosis T5-T10 laminectomies/decompression/fusion Acute Blood Loss Anemia Pulmonary AVM s/p RLL lobectomy - pain control - incentive spirometry - monitor H/H - transfuse as needed - PO as tolerated - rehab/PT - bowel regimen - check abdominal x-ray - DVT prophylaxis - can monitor on floor
[2017-08-11] MEDS: Methylnaltrexone Bromide 12 MG/0.6 ML KIT SQ SCH (12:19)
--- NOTE | 2017-08-11 13:29 | PN ---
Physical Exam: SUBJECTIVE: Patient seen and examined in the ICU. Pt c/o back pain. Pt off Dilaudid pump, and pain medications have been adjusted. (+) flatus, but only one small BM on 08/08/17. Pt declining bowel regimen medications. Pt tolerating regular diet, though appetite diminished. Pt remains afebrile. OBJECTIVE: Vital Signs Period Temp Pulse Resp BP Sys/Collins Pulse Ox Last 24 Hr 97.7 F-99.5 F 73-92 17-25 96-137/54-95 98-98 GENERAL: AAOx3, NAD at rest, OOB to chair. LUNGS: Breath sounds equal, clear to auscultation bilaterally. No wheezes, and no crackles. No accessory muscle use. HEART: Regular rate and rhythm, normal S1 and S2 without murmur, rub or gallop. ABDOMEN: Soft, nontender, not distended, hypoactive bowel sounds, no guarding. BACK: Surgical dressing CDI. NEURO: CN 2-12 grossly intact. No facial droop. LOWER EXTREMITIES: Warm, well-perfused. No calf tenderness. No peripheral edema. Active Medications Generic Name Dose Route Start Last Admin Trade Name Freq PRN Reason Stop Dose Admin Calcitonin 200 units 08/06/17 12:00 08/11/17 10:23 Miacalcin [place] - NS 1 spray DAILY [facility] Administration Diazepam 2 mg 08/07/17 02:30 08/11/17 06:04 Valium - PO 2 mg TID [facility] Administration Docusate Sodium 100 mg 08/06/17 14:00 08/11/17 06:04 Colace - PO Not Given TID [facility] Duloxetine HCl 30 mg 08/05/17 22:00 08/11/17 10:23 Cymbalta - PO 30 mg BID [facility] Administration Ferrous Sulfate 325 mg 08/06/17 10:00 08/11/17 10:25 Feosol - PO 325 mg DAILY [facility] Administration Gabapentin 800 mg 08/05/17 14:00 08/11/17 10:23 Neurontin - PO 800 mg QID [facility] Administration Heparin Sodium (Porcine) 5,000 unit 08/06/17 14:00 08/11/17 06:04 Heparin - SQ 5,000 unit TID [facility] Administration Methylnaltrexone [place] 8 mg 08/07/17 11:30 08/11/17 12:19 Relistor - SQ 8 mg DAILY [facility] Administration Ondansetron HCl 8 mg 08/08/17 14:23 08/10/17 12:15 Zofran Injection IVPB 8 mg TID PRN Administration NAUSEA Oxycodone HCl 20 mg 08/06/17 11:30 08/11/17 10:24 Oxycontin - PO 20 mg BID [facility] Administration Oxycodone HCl 5 mg 08/09/17 09:27 Roxicodone - PO Q3H PRN PAIN LEVEL 1-5 Oxycodone HCl 10 mg 08/09/17 09:27 08/11/17 12:22 Roxicodone - PO 10 mg Q3H PRN Administration PAIN LEVEL 6-10 Senna 8.8 mg 08/06/17 22:00 08/10/17 21:30 Senna Oral Solution - PO Not Given HS [facility] Topiramate 100 mg 08/05/17 22:00 08/11/17 10:25 Topamax - PO 100 mg BID [facility] Administration ASSESSMENT/PLAN: 36F with PMH of back pain, spondylosis, thoracic spinal instabilities, Lung Ca, AVMs in lung, TIA (05/16 lung tumor), pseudotumor cerebri, presents s/p elective thoracic spine surgery with Dr. Goodrich. # thoracic spondylosis/scoliosis - s/p T5-T10 lamincetomies, osteotomies with T5 /6 costovertebral and T7-T10 transpedicular decompression, and correction of deformity with T5-T10 fusion by Dr. Goodrich on 08/05/17 - POD #6 - post-op care per Dr. Goodrich - incentive spirometry - pain control with Oxycodone prn, Oxycontin BID, Valium TID, and Neurontin QID - continue home med of Topamax for back pain - Calcitonin for bone support - Zofran prn for nausea # acute blood loss anemia - s/p 6U PRBCs this hospitalization, most recently 2 units on 08/07/17 - hgb stable - monitor for overt s/s of bleeding - transfuse prn - continue Feosol supplementation # constipation - continue Colace, Senna, and Relistor - f/u ab xray # FEN - Fluids: po - Electrolytes: wnl, continue to monitor - Nutrition: regular diet # Prophylaxis - DVT ppx with Heparin TID - deconditioning ppx with PT # dispo - pt stable for transfer to [facility] floors Visit type - Emergency Visit Emergency Visit: Yes ED Registration Date: 08/05/17 Care time: The patient presented to the Emergency Department on the above date and was hospitalized for further evaluation of their emergent condition. - New Patient This patient is new to me today: No - Critical Care Critical Care patient: Yes Total Critical Care Time (in minutes): 45 Critical Care Statement: The care of this patient involved high complexity decision making to prevent further life threatening deterioration of the patient 's condition and/or to evaluate & treat vital organ system(s) failure or risk of failure.
--- NOTE | 2017-08-11 15:31 | PN ---
Progress Note, Physician Chief Complaint: AWAKE, LETHARGIC WALKING WITH PT AND I IN HALLWAY OF ICU PATIENT UNSTEADY GAIT/DROWSEY - Current Medication List Current Medications: Active Medications Calcitonin (Miacalcin [place] -) 200 units NS DAILY [facility] Last Admin: 08/11/17 10:23 Dose: 1 spray Diazepam (Valium -) 2 mg PO TID [facility] Last Admin: 08/11/17 14:11 Dose: 2 mg Docusate Sodium (Colace -) 100 mg PO TID [facility] Last Admin: 08/11/17 14:11 Dose: 100 mg Duloxetine HCl (Cymbalta -) 30 mg PO BID [facility] Last Admin: 08/11/17 10:23 Dose: 30 mg Ferrous Sulfate (Feosol -) 325 mg PO DAILY [facility] Last Admin: 08/11/17 10:25 Dose: 325 mg Gabapentin (Neurontin -) 800 mg PO QID [facility] Last Admin: 08/11/17 14:11 Dose: 800 mg Heparin Sodium (Porcine) (Heparin -) 5,000 unit SQ TID [facility] Last Admin: 08/11/17 14:11 Dose: 5,000 unit Methylnaltrexone [place] (Relistor -) 8 mg SQ DAILY [facility] Last Admin: 08/11/17 12:19 Dose: 8 mg Ondansetron HCl (Zofran Injection) 8 mg IVPB TID PRN PRN Reason: NAUSEA Last Admin: 08/10/17 12:15 Dose: 8 mg Oxycodone HCl (Oxycontin -) 20 mg PO BID [facility] Last Admin: 08/11/17 10:24 Dose: 20 mg Oxycodone HCl (Roxicodone -) 5 mg PO Q3H PRN PRN Reason: PAIN LEVEL 1-5 Oxycodone HCl (Roxicodone -) 10 mg PO Q3H PRN PRN Reason: PAIN LEVEL 6-10 Last Admin: 08/11/17 12:22 Dose: 10 mg Senna (Senna Oral Solution -) 8.8 mg PO HS [facility] Last Admin: 08/10/17 21:30 Dose: Not Given Topiramate (Topamax -) 100 mg PO BID [facility] Last Admin: 08/11/17 10:25 Dose: 100 mg - Objective Vital Signs: Vital Signs Temperature 99.5 F 08/11/17 13:00 Pulse Rate 88 08/11/17 13:00 Respiratory Rate 18 08/11/17 13:00 Blood Pressure 104/60 08/11/17 13:00 O2 Sat by Pulse Oximetry (%) 98 08/11/17 08:27 Constitutional: Yes: Mild Distress Eyes: Yes: WNL HENT: Yes: WNL Neck: Yes: WNL Cardiovascular: Yes: WNL Respiratory: Yes: WNL Gastrointestinal: Yes: WNL Genitourinary: Yes: WNL Musculoskeletal: Yes: Muscle Weakness Extremities: Yes: Other Edema: No Peripheral Pulses WNL: Yes Integumentary: Yes: WNL Wound/Incision: Yes: Dressing Dry and Intact Neurological: Yes: Pre-Existing Deficit ...Motor Strength: LLE, RLE Psychiatric: Yes: Other Labs: CBC, BMP 08/10/17 05:30 08/10/17 05:30 INR, PTT INR 1.06 (0.82-1.09) 08/05/17 13:45 Problem List - Problems (1) Status post thoracic spinal fusion Code(s): Z98.1 - ARTHRODESIS STATUS (2) Back pain Code(s): M54.9 - DORSALGIA, UNSPECIFIED Assessment/Plan DECREASE OPIODS OOB TO CHAIR RELISTOR SQ FOR OPIOD BOWEL PT WILL NEED PLACEMENT INTO SNF WOUND CARE
[2017-08-11] MEDS ORDERED: ONDANSETRON 4 MG/2 ML VIAL IVPB PRN (20:38)
[2017-08-11] MEDS: SENNOSIDES 8.8 MG/5 ML BULK BOTTLE PO SCH (23:03)
[2017-08-12] MEDS: HEPARIN NA (PORCINE) 5,000 UNITS/ML 1ML VIAL SQ SCH ×3 (06:36→23:04)
[2017-08-12] MEDS: DOCUSATE SODIUM 100 MG CAPSULE (FP) PO SCH ×3 (06:37→23:04)
[2017-08-12] MEDS: diazePAM 2 MG TABLET PO SCH ×3 (06:37→23:07)
[2017-08-12] MEDS: oxyCODONE HCL 5 MG TABLET PO PRN ×3 (07:00→18:13)
[2017-08-12 07:42] LABS: HEMOGLOBIN 8.4 GM/dL (10.7-15.3); MCH 30.1 pg (25.7-33.7); MCHC 35.1 g/dl (32.0-36.0); MEAN CELL VOLUME 85.7 fl (80-96); MEAN PLT VOLUME 8.3 fl (7.5-11.1); PLATELET COUNT 249 K/MM3 (134-434); RBC 2.81 M/mm3 (3.60-5.2); RDW 13.9 % (11.6-15.6); WHITE BLOOD COUNT 8.4 K/mm3 (4.0-10.0)
[2017-08-12 08:49] LABS: CHLORIDE 107 mmol/L (98-107); SODIUM 140 mmol/L (136-145)
[2017-08-12 08:56] LABS: ANION GAP 5 (8-16); BLOOD UREA NITROGEN 10 mg/dL (7-18); CALCIUM 8.3 mg/dL (8.5-10.1); CO2 28 mmol/L (21-32); CREATININE 0.7 mg/dL (0.55-1.02); GLUCOSE,RANDOM 92 mg/dL (74-106)
[2017-08-12] MEDS ORDERED: PT OWN MED DRAWER 7, Y5N ONE ×3 (09:12→22:05)
[2017-08-12] MEDS: oxyCODONE HCL 10 MG SUSTAINED ACTING TABLET PO SCH ×2 (09:16→23:05)
[2017-08-12] MEDS: GABAPENTIN 400 MG CAPSULE (FP) PO SCH ×4 (09:16→23:05)
[2017-08-12] MEDS: DULoxetine HCL 30 MG CAPSULE.DR (FP) PO SCH ×2 (09:17→23:04)
[2017-08-12] MEDS: FERROUS SO4 325 MG TABLET (FP) PO SCH (09:17)
[2017-08-12] MEDS: TOPIRAMATE 100 MG TABLET PO SCH ×2 (09:18→23:06)
[2017-08-12] MEDS: CALCITONIN - SALMON SYNTHETIC 3.7 ML SPRAY.PUMP NS SCH (09:43)
--- NOTE | 2017-08-12 10:44 | PN ---
Progress Note, Physician Chief Complaint: Operative Date: 08/05/17 Pre-Operative Diagnosis: Thoracic spondylosis and scoliosis Operation: T5-T10 lamincetomies, osteotomies with T5/6 costovertebral and T7- T10 transpedicular decompression, correction of deformity with T5-T10 fusion Surgeon: Abdirahman Goodrich Court Recorder: Zach Daniels Anesthesiologist/PEDIATRIC RN: Rafa Bernal Anesthesia: General Specimens Removed: T5/6 disc History of Present Illness: NAD, walked with PT short distance, weak candidate for SNF Has not had BM since admission Abd Xray shows possible obstruction, recommended CT abd - Current Medication List Current Medications: Active Medications Calcitonin (Miacalcin [place] -) 200 units NS DAILY [facility] Last Admin: 08/12/17 09:43 Dose: 200 units Diazepam (Valium -) 2 mg PO TID [facility] Last Admin: 08/12/17 06:37 Dose: 2 mg Docusate Sodium (Colace -) 100 mg PO TID [facility] Last Admin: 08/12/17 06:37 Dose: 100 mg Duloxetine HCl (Cymbalta -) 30 mg PO BID [facility] Last Admin: 08/12/17 09:17 Dose: 30 mg Ferrous Sulfate (Feosol -) 325 mg PO DAILY [facility] Last Admin: 08/12/17 09:17 Dose: 325 mg Gabapentin (Neurontin -) 800 mg PO QID [facility] Last Admin: 08/12/17 09:16 Dose: 800 mg Heparin Sodium (Porcine) (Heparin -) 5,000 unit SQ TID [facility] Last Admin: 08/12/17 06:36 Dose: 5,000 unit Methylnaltrexone [place] (Relistor -) 8 mg SQ DAILY [facility] Ondansetron HCl (Zofran Injection) 8 mg IVPB TID PRN PRN Reason: NAUSEA Last Admin: 08/11/17 23:04 Dose: 8 mg Oxycodone HCl (Roxicodone -) 5 mg PO Q3H PRN PRN Reason: PAIN LEVEL 1-5 Last Admin: 08/12/17 07:00 Dose: 5 mg Oxycodone HCl (Roxicodone -) 10 mg PO Q3H PRN PRN Reason: PAIN LEVEL 6-10 Oxycodone HCl (Oxycontin -) 20 mg PO BID [facility] Last Admin: 08/12/17 09:16 Dose: 20 mg Senna (Senna Oral Solution -) 8.8 mg PO HS [facility] Last Admin: 08/11/17 23:03 Dose: 8.8 mg Topiramate (Topamax -) 100 mg PO BID [facility] Last Admin: 08/12/17 09:18 Dose: 100 mg - Objective Vital Signs: Vital Signs Temperature 99.2 F 08/12/17 06:00 Pulse Rate 73 08/12/17 06:00 Respiratory Rate 20 08/12/17 06:00 Blood Pressure 105/60 08/12/17 06:00 O2 Sat by Pulse Oximetry (%) 98 08/11/17 21:00 Constitutional: Yes: Well Nourished, No Distress, Calm Cardiovascular: Yes: Regular Rate and Rhythm Respiratory: Yes: Regular Gastrointestinal: Yes: Soft, Hypoactive Bowel Sounds Musculoskeletal: Yes: Muscle Weakness Edema: No Peripheral Pulses WNL: Yes Neurological: Yes: Alert, Oriented Psychiatric: Yes: Alert, Oriented Labs: CBC, BMP 08/12/17 06:15 08/12/17 06:15 INR, PTT INR 1.06 (0.82-1.09) 08/05/17 13:45 Problem List - Problems (1) Anemia Assessment/Plan: 2/2 iron deficiency and blood loss venofer received several units of PRBC post op monitor trend Code(s): D64.9 - ANEMIA, UNSPECIFIED (2) Status post thoracic spinal fusion Assessment/Plan: seen by NS pain management physical therapy candidate for SNF Code(s): Z98.1 - ARTHRODESIS STATUS (3) Constipation Assessment/Plan: opioid induced relistor senna colace CT abdomen to r/o obstruction Code(s): K59.00 - CONSTIPATION, UNSPECIFIED Qualifiers: Constipation type: drug induced constipation Qualified Code(s): K59.03 - Drug induced constipation Assessment/Plan see problem list
[2017-08-12] MEDS: Methylnaltrexone Bromide 12 MG/0.6 ML KIT SQ SCH (11:25)
[2017-08-12] MEDS: SENNOSIDES 8.8 MG/5 ML BULK BOTTLE PO SCH (23:06)
[2017-08-13] MEDS: oxyCODONE HCL 5 MG TABLET PO PRN ×5 (04:09→20:09)
[2017-08-13] MEDS: HEPARIN NA (PORCINE) 5,000 UNITS/ML 1ML VIAL SQ SCH ×3 (06:32→21:19)
[2017-08-13] MEDS: diazePAM 2 MG TABLET PO SCH (06:33)
[2017-08-13] MEDS: DOCUSATE SODIUM 100 MG CAPSULE (FP) PO SCH ×3 (06:33→21:19)
[2017-08-13] MEDS ORDERED: PT OWN MED DRAWER 7, Y5N ONE ×2 (09:12→10:21)
[2017-08-13] MEDS ORDERED: POLYETHYLENE GLYCOL 3350 255 GM BTL PO ONE (09:14)
--- NOTE | 2017-08-13 09:14 | CONSULT ---
Consult Consult Specialty:: Pain Management Reason for Consultation:: Back pain S/p Surgery - History of Present Illness Chief Complaint: Back pain History of Present Illness: 36 yr old female wih back pain s/p surgery . pain 8/10, difficulty in sleep, ambulation and doing ADLS . 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 - History Source History Provided By: Patient Limitations to Obtaining History: No Limitations - Past Medical History ...LMP: 06/06/17 Musculoskeletal: Yes: Chronic low back pain - Past Surgical History Additional Surgical History: back surgery - Alcohol/Substance Use Hx Alcohol Use: No - Smoking History Smoking history: Never smoked Have you smoked in the past 12 months: No Aproximately how many cigarettes per day: 0 Home Medications - Allergies Allergies/Adverse Reactions: Allergies Allergy/AdvReac Type Severity Reaction Status Date / Time acetaminophen [From [facility]] AdvReac Mild Hives Verified 08/06/17 08:25 - Home Medications Home Medications: Ambulatory Orders Duloxetine HCl [Cymbalta] 30 mg PO BID 08/04/17 Gabapentin 800 mg PO QID 08/04/17 Ondansetron HCl [Zofran] 8 mg PO QID 08/04/17 Topiramate [Topamax] 100 mg PO BID 08/04/17 Calcitonin-[place] [Miacalcin [place] -] 200 units NS DAILY spray.pump 08/13/17 Cyclobenzaprine HCl [Flexeril -] 10 mg PO BID tablet 08/13/17 Docusate Sodium [Colace -] 100 mg PO TID capsule 08/13/17 Ferrous Sulfate [Feosol] 325 mg PO DAILY ud 08/13/17 Methylnaltrexone [place] [Relistor -] 12 mg SQ DAILY kit 08/13/17 Polyethylene Glycol 3350 [Miralax 119 gm Btl -] 17 gm PO BID bottle 08/13/17 oxyCODONE HCL [Roxicodone -] 5 mg PO Q3H PRN #240 tablet MDD 8 08/13/17 oxyCODONE HCL [Roxicodone -] 10 mg PO Q3H PRN #240 tablet MDD 8 08/13/17 oxyCODONE SR [Oxycontin] 20 mg PO BID #60 tab.er.12h MDD 2 08/13/17 Review of Systems - Review of Systems Constitutional: reports: No Symptoms Eyes: reports: No Symptoms HENT: reports: No Symptoms Neck: reports: No Symptoms Cardiovascular: reports: No Symptoms Respiratory: reports: No Symptoms Gastrointestinal: reports: Constipation Genitourinary: reports: No Symptoms Musculoskeletal: reports: Back Pain Neurological: reports: No Symptoms Endocrine: reports: No Symptoms Hematology/Lymphatic: reports: No Symptoms Psychiatric: reports: No Symptoms Pain Intensity: 8 Physical Exam Vital Signs: Vital Signs Temperature 98.6 F 08/13/17 06:25 Pulse Rate 84 08/13/17 06:25 Respiratory Rate 20 08/13/17 06:25 Blood Pressure 152/70 08/13/17 06:25 O2 Sat by Pulse Oximetry (%) 98 08/12/17 21:00 Constitutional: Yes: Well Nourished, Obese Eyes: Yes: WNL HENT: Yes: WNL Neck: Yes: WNL Cardiovascular: Yes: WNL Respiratory: Yes: WNL Gastrointestinal: Yes: WNL Musculoskeletal: Yes: Back Pain, Other (incision wound dressing +) Edema: No Wound/Incision: Yes: Dressing Dry and Intact Neurological: Yes: WNL ...Motor Strength: WNL Psychiatric: Yes: WNL Labs: CBC, BMP 08/12/17 06:15 08/12/17 06:15 Imaging - Results X-ray: Pending Cat Scan: Report Reviewed MRI: Report Reviewed Assessment/Plan discussed in details and answered all questions 1. agree with current care 2. Flexeril 10 mg po BID 3. Miralax for constipation. 4. continue pT. 5. Continue oxycodone and oxycontin. We will f/u. Thanks Dr. Jefferson [phone] .
[2017-08-13] MEDS: DULoxetine HCL 30 MG CAPSULE.DR (FP) PO SCH ×2 (09:20→21:18)
[2017-08-13] MEDS: oxyCODONE HCL 10 MG SUSTAINED ACTING TABLET PO SCH ×2 (09:20→21:18)
[2017-08-13] MEDS: GABAPENTIN 400 MG CAPSULE (FP) PO SCH ×4 (09:20→21:18)
[2017-08-13] MEDS: FERROUS SO4 325 MG TABLET (FP) PO SCH (09:20)
[2017-08-13] MEDS: Methylnaltrexone Bromide 12 MG/0.6 ML KIT SQ SCH (09:21)
[2017-08-13] MEDS: POLYETHYLENE GLYCOL 3350 119 GM BTL PO SCH ×2 (09:40→21:19)
[2017-08-13] MEDS: TOPIRAMATE 100 MG TABLET PO SCH ×2 (09:40→21:19)
[2017-08-13] MEDS ORDERED: KETOROLAC TROMETHAMINE 30 MG/1 ML VIAL IM ONE (09:45)
[2017-08-13] MEDS ORDERED: MINERAL OIL ENEMA 133 ML ENEMA PR ONE (10:28)
--- NOTE | 2017-08-13 10:40 | DS ---
"Physical Examination Vital Signs: Vital Signs Temperature 98.6 F 08/13/17 06:25 Pulse Rate 84 08/13/17 06:25 Respiratory Rate 20 08/13/17 06:25 Blood Pressure 152/70 08/13/17 06:25 O2 Sat by Pulse Oximetry (%) 98 08/12/17 21:00 Findings/Remarks: c/o pain still no BM On relistor,miralax,colace and senna Constitutional: Yes: Well Nourished, No Distress, Calm Cardiovascular: Yes: Regular Rate and Rhythm Respiratory: Yes: Regular Gastrointestinal: Yes: Normal Bowel Sounds, Soft Musculoskeletal: Yes: Back Pain, Muscle Weakness Extremities: Yes: WNL Edema: No Peripheral Pulses WNL: Yes Wound/Incision: Yes: Dressing Dry and Intact Neurological: Yes: Alert, Oriented Psychiatric: Yes: Alert, Oriented Labs: CBC, BMP 08/12/17 06:15 08/12/17 06:15 Discharge Summary Reason For Visit: THORACIC SPONDYLOSIS Current Active Problems Anemia (Acute) Constipation (Acute) Status post thoracic spinal fusion (Acute) Hospital Course: Operative Date: 08/05/17 Pre-Operative Diagnosis: Thoracic spondylosis and scoliosis Operation: T5-T10 lamincetomies, osteotomies with T5/6 costovertebral and T7- T10 transpedicular decompression, correction of deformity with T5-T10 fusion Surgeon: Abdirahman Goodrich Heating [employer] Blending Supervisor: Zach Daniels Anesthesiologist/NURSING INFORMATICS SPECIALIST: Rafa Bernal Anesthesia: General Specimens Removed: T5/6 disc Estimated Blood Loss (mls): 3,000 Blood Volume Replaced (mls): 4 (PRBC, 2 FPP, 1L albumin) Fluid Volume Replaced (mls): 2,500 (LR) Condition: Stable - Instructions Diet, Activity, Other Instructions: Dr. Goodrich Discharge Instructions Post Operative Instructions Physical activity Resume your normal everyday activity as tolerated no heavy lifting or exercise until seen by your surgeon. You may walk unlimited amounts of and climb stairs. Do not resume driving the car until cleared by your surgeon. Wear your TLSO brace if oob/ambulating for more than 5 mintues. Wound care You can shower but do not submerge the incisions. Keep incisions covered with large tegaderm/saran wrap when showering, after, remove tegaderm and apply new clean dry dressings. Do not apply any ointments or lotions to incisions. Diet There are no dietary restrictions. Eat healthy, high-fiber foods. Drink 6 to 8 glasses of liquid each day. This will assist in keeping your bowels are regular. Pain management You may take Tylenol or acetaminophen for pain. Any pain prescription medication ordered should be taken as prescribed for moderate to severe pain. Call Dr. Goodrich for any of the following: Severe pain not relieved by medication New or worsening symptoms Fever of 101 or higher Excessive bleeding or drainage on dressing Inability to urinate [place] [employer] MECH[employer]IC Report was requested by: Zach Daniels | Reference #: [id number] On 07/19/2017, script for Oxycodone hcl 15 mg tablet 120 tablets by Baldo David MD Follow-up Referred to following clinics/specialists for follow-up care: Abdirahman Goodrich [email or web address] Disposition: RESIDENTIAL FACILITY - Home Medications Comprehensive Discharge Medication List: Ambulatory Orders Duloxetine HCl [Cymbalta] 30 mg PO BID 08/04/17 Gabapentin 800 mg PO QID 08/04/17 Ondansetron HCl [Zofran] 8 mg PO QID 08/04/17 Topiramate [Topamax] 100 mg PO BID 08/04/17 Calcitonin-[place] [Miacalcin [place] -] 200 units NS DAILY spray.pump 08/13/17 Cyclobenzaprine HCl [Flexeril -] 10 mg PO BID tablet 08/13/17 Docusate Sodium [Colace -] 100 mg PO TID capsule 08/13/17 Ferrous Sulfate [Feosol] 325 mg PO DAILY ud 08/13/17 Methylnaltrexone [place] [Relistor -] 12 mg SQ DAILY kit 08/13/17 Polyethylene Glycol 3350 [Miralax 119 gm Btl -] 17 gm PO BID bottle 08/13/17 oxyCODONE HCL [Roxicodone -] 5 mg PO Q3H PRN #240 tablet MDD 8 08/13/17 oxyCODONE HCL [Roxicodone -] 10 mg PO Q3H PRN #240 tablet MDD 8 08/13/17 oxyCODONE SR [Oxycontin] 20 mg PO BID #60 tab.er.12h MDD 2 08/13/17"
[2017-08-13] MEDS: CALCITONIN - SALMON SYNTHETIC 3.7 ML SPRAY.PUMP NS SCH (10:44)
[2017-08-13] MEDS: CYCLOBENZAPRINE HCL 10 MG TABLET (FP) PO SCH ×2 (11:28→21:18)
[2017-08-13] MEDS ORDERED: ONDANSETRON *ODT* 4 MG TABLET SL ONE (17:30)
[2017-08-13] MEDS: SENNOSIDES 8.8 MG/5 ML BULK BOTTLE PO SCH (21:19)
[2017-08-13 22:17] VITALS: BP 122/67; PULSE 86; TEMP 98.7
[2017-08-14] MEDS ORDERED: Methylnaltrexone Bromide 12 MG/0.6 ML KIT SQ SCH (10:00)
== END 2017-08-13 21:30 | DRG 460 ==
LOC: JSAMEDAYSX 05:16 → EDSTATUS 08:00 → JICU 17:38 → J8W 08-11 19:16
PROVIDERS: ADMIT Family Medicine; ATTEND Family Medicine
PROC: 0RG7071 Fusion of 2 to 7 Thoracic Vertebral Joints with Autologous Tissue Substitute, Posterior Approach, Posterior Column, Open Approach (ICD-10-PCS; 2017-08-05)
PROC: 0HX6XZZ Transfer Back Skin, External Approach (ICD-10-PCS; 2017-08-05)
PROC: 0PB40ZZ Excision of Thoracic Vertebra, Open Approach (ICD-10-PCS; 2017-08-05)
PROC: 30233L1 Transfusion of Nonautologous Fresh Plasma into Peripheral Vein, Percutaneous Approach (ICD-10-PCS; 2017-08-05)
PROC: 30233N1 Transfusion of Nonautologous Red Blood Cells into Peripheral Vein, Percutaneous Approach (ICD-10-PCS; 2017-08-05)
PROC: 30233K1 Transfusion of Nonautologous Frozen Plasma into Peripheral Vein, Percutaneous Approach (ICD-10-PCS; 2017-08-05)
PROC: 00NX0ZZ Release Thoracic Spinal Cord, Open Approach (ICD-10-PCS; principal; 2017-08-05 08:00)
DX: M47.894 Other spondylosis, thoracic region (principal); G95.29 Other cord compression; D62 Acute posthemorrhagic anemia; Z68.42 Body mass index [BMI] 45.0-49.9, adult; M51.24 Other intervertebral disc displacement, thoracic region; M41.9 Scoliosis, unspecified; R11.0 Nausea; L50.8 Other urticaria; E83.39 Other disorders of phosphorus metabolism; E66.9 Obesity, unspecified; Z86.73 Personal history of transient ischemic attack (TIA), and cerebral infarction without residual deficits; R26.81 Unsteadiness on feet; K59.03 Drug induced constipation; T40.2X5A Adverse effect of other opioids, initial encounter
CPT/HCPCS: 36415; 36430; 72128-TC; 74019-TC-FY; 74176-TC; 76000-TC-FY; 80048; 80053; 82550; 82553; 83540; 83735; 84100; 84484; 84703; 85025; 85027; 85610; 85730; 86850; 86900; 86901; 86922; 88304-TC; 93005; 93010; 94760; 97116-GP; 97162-GP; J0131; J1644; J1756; P9017; P9034; P9038; P9058; Q0162

== ENCOUNTER 2017-10-04 17:09 | Emergency (ER) | payer OTHER ==
[2017-10-04 17:17] VITALS: BP 108/52; PULSE 107; TEMP 97.9; BMI 43.9
[2017-10-04] MEDS ORDERED: morphine CARPU-JECT 4 MG/1 ML DISP.SYRIN IVPUSH ONE (17:58)
[2017-10-04] MEDS ORDERED: diazePAM CARPU-JECT 10 MG/2 ML DISP.SYRIN IVPUSH ONE (17:58)
[2017-10-04] MEDS ORDERED: diazePAM 5 MG TABLET PO ONE (18:17)
[2017-10-04] MEDS ORDERED: diazePAM 5 MG TABLET ONE (18:17)
[2017-10-04] MEDS ORDERED: morphine SULFATE 4 MG/ML VIAL ONE (18:17)
--- NOTE | 2017-10-04 18:28 | PDOC ---
History of Present Illness - History of Present Illness Initial Comments: 10/04/17 18:28 "The patient is a 36 year old female with a significant PMH of recent thoracic spinal surgery (at end of 07/2017), right lower lobectomy (2013), anemia, and TIA who presents to the emergency department with increased back pain s/p fall yesterday. She describes her back pain as a sharp sensation mostly localized in the upper region with some radiation to the lower back. The patient states she was at home last night when she tripped over a wire and fell forward. Pt was able to get up on her own and has been ambulatory with no issue. However, she states that the pain in her upper back was exacerbated by the fall. She reports taking her prescribed gabapentin and oxycodone this morning to minimal relief. Pt denies difficulty controlling her bowel or bladder. Denies saddle anesthesia. The patient denies chest pain, shortness of breath, headache and dizziness. Denies fever, chills, nausea, vomit, diarrhea and constipation. Denies dysuria, frequency, urgency and hematuria. Allergies: Acetaminophen Past surgical history: Thoracic spinal surgery. Right lung surgery x3 inc. right lower lobectomy. Appendectomy. Hiatal hernia repair. Social history: No reported cigarette, alcohol, or drug use. PCP: Dr. 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) - Surgical History Abdominal Surgery: Yes (hiatal hernia repair) Appendectomy: Yes Lung Surgery: Yes (3 surgery on right side, Right lower lobectomy) - Family Disease History Family Disease History: Diabetes: Sister, Other: Grandparents (maternal grandfather had stroke), Mother (stroke at age 55) - Immunization History Immunization Up to Date: Yes - Suicide/Smoking/Psychosocial Hx Smoking Status: No Smoking History: Never smoked Have you smoked in the past 12 months: No Number of Cigarettes Smoked Daily: 0 Information on smoking cessation initiated: No Hx Alcohol Use: No Drug/Substance Use Hx: No Substance Use Type: None Hx Substance Use Treatment: No <Gianluca Pierre - Last Filed: 10/04/17 18:35> <Manjinder Garay - Last Filed: 10/04/17 18:37> - Past Medical History Allergies/Adverse Reactions: Allergies Allergy/AdvReac Type Severity Reaction Status Date / Time acetaminophen [From [facility]] AdvReac Mild Hives Verified 10/04/17 17:12 Home Medications: Ambulatory Orders Duloxetine HCl [Cymbalta] 30 mg PO BID 08/04/17 Gabapentin 800 mg PO QID 08/04/17 Ondansetron HCl [Zofran] 8 mg PO QID 08/04/17 Topiramate [Topamax] 100 mg PO BID 08/04/17 Calcitonin-[place] [Miacalcin [place] -] 200 units NS DAILY spray.pump 08/13/17 Cyclobenzaprine HCl [Flexeril -] 10 mg PO BID tablet 08/13/17 Docusate Sodium [Colace -] 100 mg PO TID capsule 08/13/17 Ferrous Sulfate [Feosol] 325 mg PO DAILY ud 08/13/17 Methylnaltrexone [place] [Relistor -] 12 mg SQ DAILY kit 08/13/17 Polyethylene Glycol 3350 [Miralax 119 gm Btl -] 17 gm PO BID bottle 08/13/17 oxyCODONE HCL [Roxicodone -] 5 mg PO Q3H PRN #240 tablet MDD 8 08/13/17 oxyCODONE HCL [Roxicodone -] 10 mg PO Q3H PRN #240 tablet MDD 8 08/13/17 oxyCODONE SR [Oxycontin] 20 mg PO BID #60 tab.er.12h MDD 2 08/13/17 Review of Systems - Review of Systems Comments:: 10/04/17 18:31 "GENERAL/CONSTITUTIONAL: No fever or chills. No weakness. HEAD, EYES, EARS, NOSE AND THROAT: No change in vision. No ear pain or discharge. No sore throat. CARDIOVASCULAR: No chest pain or shortness of breath. RESPIRATORY: No cough, wheezing, or hemoptysis. GASTROINTESTINAL: No nausea, vomiting, diarrhea or constipation. GENITOURINARY: No dysuria, frequency. MUSCULOSKELETAL: (+) Back pain. No joint pain. No neck pain. SKIN: No rash NEUROLOGIC: No headache, vertigo, loss of consciousness, or change in strength/ sensation. ENDOCRINE: No increased thirst. No abnormal weight change. HEMATOLOGIC/LYMPHATIC: No anemia, easy bleeding, or history of blood clots. ALLERGIC/IMMUNOLOGIC: No hives or skin allergy. " <Ou,Gianluca - Last Filed: 10/04/17 18:35> *Physical Exam - Vital Signs Last Vital Signs Temp Pulse Resp BP Pulse Ox 97.9 F 107 H 17 108/52 99 10/04/17 17:13 10/04/17 17:13 10/04/17 17:13 10/04/17 17:13 10/04/17 17:13 - Physical Exam Comments: 10/04/17 18:32 "GENERAL: Awake, alert, and fully oriented, in no acute distress. HEAD: No signs of trauma EYES: PERRLA, EOMI, sclera anicteric, conjunctiva clear ENT: Auricles normal inspection, hearing grossly normal, nares patent, oropharynx clear without exudates. Moist mucosa NECK: Nontender, no stepoffs, Normal ROM, supple, no lymphadenopathy, JVD, or masses LUNGS: Breath sounds equal, clear to auscultation bilaterally. No wheezes, and no crackles HEART: Regular rate and rhythm, normal S1 and S2, no murmurs, rubs or gallops ABDOMEN: Soft, nontender, normoactive bowel sounds. No guarding, no rebound. No masses EXTREMITIES: Normal range of motion, no edema. No clubbing or cyanosis. No cords , erythema, or tenderness NEUROLOGICAL: Cranial nerves II through XII intact. 5/5 strength and sensation in all extremities, Normal speech, normal gait, normal cerebellar function SKIN: Warm, Dry, normal turgor, no rashes or lesions noted. BACK: + thoracic spinal tenderness, no stepoffs, no deformities " <Ou,Gianluca - Last Filed: 10/04/17 18:35> - Vital Signs Last Vital Signs Temp Pulse Resp BP Pulse Ox 97.9 F 107 H 17 108/52 99 10/04/17 17:13 10/04/17 17:13 10/04/17 17:13 10/04/17 17:13 10/04/17 17:13 <Manjinder Garay - Last Filed: 10/04/17 18:37> ED Treatment Course - RADIOLOGY Radiology Studies Ordered: Category Date Time Status CERVICAL SPINE CT W/O CONTR [CT] Stat CT Scan 10/04/17 18:[address] W/O CONTRAST [CT] Stat CT Scan 10/04/17 18:20 Ordered <Gianluca Pierre - Last Filed: 10/04/17 18:35> Medical Decision Making - Medical Decision Making 10/04/17 18:32 36 F with h/o spinal surgery presenting with increased upper back pain s/p fall yesterday. No new neuro deficits. Pt ambulatory in ED without any issue. - CT T-spine to r/o fx - Pain control <Gianluca Pierre - Last Filed: 10/04/17 18:35> *DC/Admit/Observation/Transfer <Gianluca Pierre - Last Filed: 10/04/17 18:35> - Attestations Scribe Attestion: 10/04/17 18:37 Documentation prepared by Manjinder Garay, acting as family practice medical doctor for Gianluca Pierre MD. <Manjinder Garay - Last Filed: 10/04/17 18:37> - Referrals Referrals: Femi Antoine MD [Primary Care Provider] - - Patient Instructions - Post Discharge Activity
[2017-10-04 18:49] LABS: BASO % 0.6 % (0-2.0); EOS % 2.8 % (0-4.5); HEMATOCRIT 36.8 % (32.4-45.2); HEMOGLOBIN 12.2 GM/dL (10.7-15.3); LYMPH % 33.2 % (8-40); MCHC 33.2 g/dl (32.0-36.0); MEAN CELL VOLUME 84.2 fl (80-96); MEAN PLT VOLUME 9.2 fl (7.5-11.1); MONO % 4.8 % (3.8-10.2); NEUT % 58.6 % (42.8-82.8); PLATELET COUNT 237 K/MM3 (134-434); RBC 4.37 M/mm3 (3.60-5.2); RDW 14.6 % (11.6-15.6); WHITE BLOOD COUNT 9.4 K/mm3 (4.0-10.0)
[2017-10-04 19:34] LABS: ALBUMIN 3.9 g/dl (3.4-5.0); ALK PHOS 83 U/L (45-117); ANION GAP 9 (8-16); BILIRUBIN,TOTAL 0.2 mg/dL (0.2-1.0); BLOOD UREA NITROGEN 11 mg/dL (7-18); CALCIUM 8.7 mg/dL (8.5-10.1); CHLORIDE 111 mmol/L (98-107); CO2 22 mmol/L (21-32); CREATININE 0.8 mg/dL (0.55-1.02); GLUCOSE,RANDOM 118 mg/dL (74-106); POTASSIUM 4.2 mmol/L (3.5-5.1); SGOT/AST 12 U/L (15-37); SGPT/ALT 29 U/L (12-78); SODIUM 142 mmol/L (136-145); TOT PROT 7.5 g/dl (6.4-8.2)
[2017-10-04] MEDS ORDERED: oxyCODONE HCL 5 MG TABLET PO ONE (20:36)
[2017-10-04] MEDS ORDERED: oxyCODONE HCL 5 MG TABLET ONE (20:39)
--- NOTE | 2017-10-04 22:11 | PDOC ---
*Physical Exam - Vital Signs Last Vital Signs Temp Pulse Resp BP Pulse Ox 97.9 F 107 H 17 108/52 99 10/04/17 17:13 10/04/17 17:13 10/04/17 17:13 10/04/17 17:13 10/04/17 17:13 ED Treatment Course - LABORATORY CBC & Chemistry Diagram: 10/04/17 18:40 10/04/17 18:40 - ADDITIONAL ORDERS Additional order review: Laboratory Results 10/04/17 18:40 Sodium 142 Potassium 4.2 Chloride 111 H Carbon Dioxide 22 Anion Gap 9 BUN 11 Creatinine 0.8 Creat Clearance w eGFR > 60 Random Glucose 118 H Calcium 8.7 Total Bilirubin 0.2 AST 12 L ALT 29 Alkaline Phosphatase 83 Total Protein 7.5 Albumin 3.9 10/04/17 18:40 RBC 4.37 MCV 84.2 MCHC 33.2 RDW 14.6 MPV 9.2 D Neutrophils % 58.6 Lymphocytes % 33.2 D Monocytes % 4.8 Eosinophils % 2.8 Basophils % 0.6 - Medications Given in the ED: ED Medications Discontinued Medications Generic Name Dose Route Start Last Admin Trade Name [place] PRN Reason Stop Dose Admin Diazepam 5 mg 10/04/17 17:58 10/04/17 18:42 Valium Injection - IVPUSH 10/04/17 17:59 Not Given ONCE ONE Diazepam 5 mg 10/04/17 18:17 10/04/17 18:41 Valium - PO 10/04/17 18:18 5 mg ONCE ONE Administration Morphine Sulfate 4 mg 10/04/17 17:58 10/04/17 18:41 Morphine Injection - IVPUSH 10/04/17 17:59 4 mg ONCE ONE Administration Oxycodone HCl 15 mg 10/04/17 20:36 10/04/17 20:45 Roxicodone - PO 10/04/17 20:37 15 mg ONCE ONE Administration Medical Decision Making - Medical Decision Making 10/04/17 20:04 Care received at 1900 On re-eval, pt states pain is better but still present Home dose of oxycodone 15mg given 10/04/17 22:06 No acute findings on CT - showed possible infiltrates, but clinically pt does not have PNA sxs or white count CT discussed with Dr. Goodrich who reviewed images, states one of the caudal most screws maybe slightly loose but that her brace should be sufficient support for now. Pt is feeling much better, results discussed with her She requests DC home, advised her to f/u with Dr. Goodrich nxt week I discussed the physical exam findings, ancillary test results and final diagnoses with the patient. I answered all of the patient's questions. The patient was satisfied with the care received and felt comfortable with the discharge plan and treatment plan. The patient will call their primary care physician within 24 hours to arrange follow-up and will return to the Emergency Department with any new, persistent or worsening symptoms. *DC/Admit/Observation/Transfer Diagnosis at time of Disposition: Back pain - Discharge Dispostion Disposition: HOME Condition at time of disposition: Improved Decision to Admit order: No - Referrals Referrals: Femi Antoine MD [Primary Care Provider] - - Patient Instructions Printed Discharge Instructions: DI for Thoracic Back Pain Additional Instructions: As discussed, follow up with Dr. Goodrich within 1 week. Return to the emergency department if you have any new, worsening, or concerning symptoms. - Post Discharge Activity - Attestations Physician Attestion: 10/04/17 22:12 I, Dr. Kalen Galindo MD, attest that this document has been prepared under my direction and personally reviewed by me in its entirety. I further attest, that it accurately reflects all work, treatment, procedures and medical decision -making performed by me.
== END 2017-10-04 22:18 | disposition home or self-care (01) ==
LOC: JER 17:09
PROC: 3E033NZ Introduction of Analgesics, Hypnotics, Sedatives into Peripheral Vein, Percutaneous Approach (ICD-10-PCS; principal; 2017-10-04)
DX: M54.6 Pain in thoracic spine (principal); W18.09XA Striking against other object with subsequent fall, initial encounter; Y93.89 Activity, other specified; Y92.038 Other place in apartment as the place of occurrence of the external cause; Y99.8 Other external cause status; D64.9 Anemia, unspecified; Z98.890 Other specified postprocedural states; Z86.73 Personal history of transient ischemic attack (TIA), and cerebral infarction without residual deficits; Z90.2 Acquired absence of lung [part of]
CPT/HCPCS: 36415; 72125-TC; 72128-TC; 80053; 85025; 99282-25

== ENCOUNTER 2018-02-27 17:12 | Emergency (ER) | payer OTHER ==
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
[2018-02-27 17:56] VITALS: TEMP 98.8; BMI 45.7
[2018-02-27 18:19] LABS: BASO % 0.7 % (0-2.0); EOS % 0.7 % (0-4.5); HEMOGLOBIN 13.4 GM/dL (10.7-15.3); LYMPH % 29.6 % (8-40); MCH 28.6 pg (25.7-33.7); MCHC 33.5 g/dl (32.0-36.0); MEAN CELL VOLUME 85.4 fl (80-96); MEAN PLT VOLUME 9.1 fl (7.5-11.1); MONO % 3.5 % (3.8-10.2); NEUT % 65.5 % (42.8-82.8); PLATELET COUNT 235 K/MM3 (134-434); RBC 4.68 M/mm3 (3.60-5.2); RDW 13.9 % (11.6-15.6); WHITE BLOOD COUNT 10.9 K/mm3 (4.0-10.0)
[2018-02-27 18:42] LABS: INR 0.97 (0.83-1.09); PROTHROMBIN TIME (PATIENT) 11.5 SEC (9.7-13.0)
[2018-02-27 18:56] LABS: ALK PHOS 84 U/L (45-117); ANION GAP 9 MMOL/L (8-16); BILIRUBIN,TOTAL 0.3 mg/dL (0.2-1); BLOOD UREA NITROGEN 15 mg/dL (7-18); CALCIUM 8.8 mg/dL (8.5-10.1); CHLORIDE 106 mmol/L (98-107); CO2 22 mmol/L (21-32); CREATININE 0.9 mg/dL (0.55-1.3); GLUCOSE,RANDOM 106 mg/dL (74-106); POTASSIUM 3.8 mmol/L (3.5-5.1); SGOT/AST 12 U/L (15-37); SGPT/ALT 25 U/L (13-61); SODIUM 137 mmol/L (136-145); TOT PROT 7.7 g/dl (6.4-8.2)
[2018-02-27] MEDS ORDERED: morphine CARPU-JECT 4 MG/1 ML DISP.SYRIN IVPUSH ONE (18:56)
[2018-02-27] MEDS ORDERED: morphine SULFATE 4 MG/ML VIAL ONE (18:59)
[2018-02-27] MEDS ORDERED: diazePAM 5 MG TABLET PO ONE (19:13)
[2018-02-27] MEDS ORDERED: KETOROLAC TROMETHAMINE 30 MG/1 ML VIAL IVPUSH ONE (19:13)
[2018-02-27] MEDS ORDERED: KETOROLAC TROMETHAMINE 30 MG/1 ML VIAL ONE (19:19)
[2018-02-27] MEDS ORDERED: diazePAM 5 MG TABLET ONE (19:19)
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
[2018-02-27 20:57] VITALS: BP 115/74; PULSE 81
--- NOTE | 2018-03-02 18:34 | EKG ---
Test Reason : Blood Pressure : / mmHG Vent. Rate : 089 BPM Atrial Rate : 089 BPM P-R Int : 172 ms QRS Dur : 086 ms QT Int : 364 ms P-R-T Axes : 021 -08 028 degrees QTc Int : 442 ms NORMAL SINUS RHYTHM NORMAL ECG WHEN COMPARED WITH ECG OF 06-AUG-2017 15:21, NO SIGNIFICANT CHANGE WAS FOUND Confirmed by NAEL RAJAN MD ([id number]) on 03/02/2018 6:33:58 PM Referred By: Confirmed By:NAEL RAJAN MD
== END 2018-02-27 20:58 | disposition home or self-care (01) ==
LOC: JER 17:12
PROC: 3E033NZ Introduction of Analgesics, Hypnotics, Sedatives into Peripheral Vein, Percutaneous Approach (ICD-10-PCS; principal; 2018-02-27)
DX: M54.5 Low back pain (principal); Z98.890 Other specified postprocedural states; Z86.73 Personal history of transient ischemic attack (TIA), and cerebral infarction without residual deficits
CPT/HCPCS: 36415; 71045-TC-FY; 71101-TC-FY; 80053; 82550; 84484; 84703; 85025; 85610; 86850; 86900; 86901; 93005; 93010; 99284-25

== ENCOUNTER 2019-02-19 13:30 | Emergency (ER) | payer OTHER ==
[2019-02-19 13:34] VITALS: BMI 35.4
[2019-02-19] MEDS ORDERED: ONDANSETRON 4 MG/2 ML VIAL IVPUSH ONE (13:37)
[2019-02-19] MEDS ORDERED: ACETAMINOPHEN 1000 MG/100 ML VIAL (NON FORMULARY) IVPB ONE (13:37)
[2019-02-19] MEDS ORDERED: SODIUM CHLORIDE 1,000 ML IV STA (13:37)
--- NOTE | 2019-02-19 13:37 | PDOC ---
Rapid Medical Evaluation Medical Evaluation: Allergies Allergy/AdvReac Type Severity Reaction Status Date / Time acetaminophen [From [facility]] AdvReac Mild Hives Verified 02/27/18 17:50 I have performed a brief in-person evaluation of this patient. The patient presents with a chief complaint of: PMH of thoracic spinal surgery ( T5-T10; 07/2017), RLL lobectomy, TIA, and multiple thoracotomies, pending surgery of repeat thoracic spine surgery c/o NBNB emesis x 2 weeks; had 1 episode of diarrhea yesterday; NSGY is Dr. Bullock - he referred to ER for eval Pertinent physical exam findings: Appears anxious I have ordered the following: Labs, IVF, zofran The patient will proceed to the ED for further evaluation. 02/19/19 13:33 Discharge Disposition - Referrals Referrals: Femi Antoine MD [Primary Care Provider] - - Patient Instructions - Post Discharge Activity
[2019-02-19] MEDS ORDERED: ONDANSETRON 4 MG/2 ML VIAL ONE (14:13)
[2019-02-19] MEDS ORDERED: ACETAMINOPHEN INJECTION 100 ML IVPB ONE (14:13)
[2019-02-19 14:27] LABS: BASO % 0.4 % (0-2.0); EOS % 0.4 % (0-4.5); HEMATOCRIT 41.1 % (32.4-45.2); HEMOGLOBIN 14.1 GM/dL (10.7-15.3); LYMPH % 30.4 % (8-40); MCH 30.2 pg (25.7-33.7); MCHC 34.3 g/dl (32.0-36.0); MEAN PLT VOLUME 10.7 fl (7.5-11.1); MONO % 2.9 % (3.8-10.2); NEUT % 65.9 % (42.8-82.8); PLATELET COUNT 168 K/MM3 (134-434); RBC 4.67 M/mm3 (3.60-5.2); RDW 12.7 % (11.6-15.6); WHITE BLOOD COUNT 9.6 K/mm3 (4.0-10.0)
[2019-02-19 14:50] LABS: HYALINE CASTS 18 /lpf (0-8); PH,URINE 5.5 (5.0-8.0); URINE APPEARANCE CLOUDY; URINE BACTERIA 31.1 /hpf (NEGATIVE); URINE BILIRUBIN NEGATIVE (NEGATIVE); URINE COLOR DK YELLOW; URINE GLUCOSE (UA) NEGATIVE (NEGATIVE); URINE KETONE TRACE (NEGATIVE); URINE LEUK ESTERASE NEGATIVE (NEGATIVE); URINE NITRITE NEGATIVE (NEGATIVE); URINE PROTEIN TRACE (NEGATIVE); URINE WBC 2 /hpf (0-5)
[2019-02-19 14:52] LABS: ALBUMIN 4.5 g/dl (3.4-5.0); BILIRUBIN,TOTAL 0.4 mg/dL (0.2-1); BLOOD UREA NITROGEN 16.6 mg/dL (7-18); CALCIUM 9.8 mg/dL (8.5-10.1); CREATININE 0.8 mg/dL (0.55-1.3); POTASSIUM 4.1 mmol/L (3.5-5.1); TOT PROT 7.6 g/dl (6.4-8.2)
[2019-02-19] MEDS ORDERED: morphine CARPU-JECT 4 MG/1 ML DISP.SYRIN IVPUSH ONE (15:36)
[2019-02-19 15:38] LABS: PLATELET ESTIMATE DECREASED
[2019-02-19] MEDS ORDERED: morphine SULFATE 4 MG/ML VIAL ONE (15:45)
--- NOTE | 2019-02-19 15:45 | PDOC ---
History of Present Illness - General Chief Complaint: Nausea/Vomiting Stated Complaint: SENT FOR BY PCP: Time Seen by Provider: 02/19/19 13:32 History Source: Patient Exam Limitations: No Limitations - History of Present Illness Initial Comments: 02/19/19 15:45 Socorro Beck is a 38F with PMH RLL AVM with TIA s/p multiple thoracotomies and lobar resection at [facility] c/b spinal injury, thoracic spinal surgery to T5- T10 with Dr. Castillo in September 2017, gastric bypass in March 2018, presenting with 3 weeks of intractable vomiting and back pain. Patient says she has been having nausea and vomiting for the last 3 weeks with one day loose stools yesterday, unable to tolerate anything PO, ~60lb weight loss, unable to take medications. Back pain worsening 2/2 inability to take 30mg TID oxycodone. Reports intermittent N/T to BLE and difficulty walking without back flexion, multiple falls. Has some urinary retention that has progressed to incontinence recently. Denies fecal incontinence or constipation. Sees Dr. David with neurology who gave her 8mg Zofran which has also been unable to take PO, was at his office today and referred here due to vomiting. Denies GRIFFIN, dizziness, of vision changes, but does say she has sinus tenderness which is normal. Denies madelyn abdominal pain, sore muscles after vomiting, hurts when pressed on, denies fever/chills. Past History - Past Medical History Allergies/Adverse Reactions: Allergies Allergy/AdvReac Type Severity Reaction Status Date / Time acetaminophen [From [facility]] AdvReac Mild Hives Verified 02/19/19 13:35 Home Medications: Ambulatory Orders Gabapentin 800 mg PO QID 08/04/17 oxyCODONE HCL [Roxicodone -] 20 mg PO QID PRN MDD 8 10/04/17 Clonazepam [Klonopin] 1 mg PO QID PRN 02/19/19 Metoclopramide HCl [Reglan -] 10 mg PO DAILY #30 tablet 02/19/19 Ondansetron [Zofran -] 8 mg PO TID 02/19/19 Anemia: Yes Asthma: No Cancer: No Cardiac Disorders: No CVA: Yes (TIA 2011, due to benign lung tumor) COPD: No CHF: No Dementia: No Diabetes: No GI Disorders: No Disorders: No HTN: No Hypercholesterolemia: No Liver Disease: No Seizures: No Thyroid Disease: No Lung CA: No (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) - Surgical History Abdominal Surgery: Yes (hiatal hernia repair) Appendectomy: Yes Lung Surgery: Yes (3 surgery on right side, Right lower lobectomy) - Immunization History Immunization Up to Date: Yes - Psycho Social/Smoking Cessation Hx Smoking Status: No Smoking History: Never smoked Have you smoked in the past 12 months: No Number of Cigarettes Smoked Daily: 0 Information on smoking cessation initiated: No Hx Alcohol Use: No Drug/Substance Use Hx: No Substance Use Type: None Hx Substance Use Treatment: No Review of Systems - Review of Systems Able to Perform ROS?: Yes Constitutional: Yes: Chills, Fever, Weakness, Unintentional Wgt. Loss HEENTM: No: Symptoms Reported Respiratory: No: Cough, Shortness of Breath Cardiac (ROS): No: Symptoms Reported ABD/GI: Yes: Constipated, Diarrhea, Nausea, Poor Appetite, Vomiting : Yes: Incontinence, Other (retention) Musculoskeletal: Yes: Back Pain, Muscle Pain Integumentary: No: Symptoms Reported Neurological: Yes: Numbness, Paresthesia, Unsteady Gait. No: Headache Endocrine: No: Symptoms Reported Hematologic/Lymphatic: No: Symptoms Reported All Other Systems: Reviewed and Negative *Physical Exam - Vital Signs Last Vital Signs Temp Pulse Resp BP Pulse Ox 98.2 F 108 H 18 138/84 100 02/19/19 13:31 02/19/19 13:31 02/19/19 13:31 02/19/19 13:31 02/19/19 13:31 - Physical Exam General Appearance: Yes: Nourished, Appropriately Dressed. No: Apparent Distress HEENT: positive: EOMI, GABRIELE, Normal Voice, Symmetrical, Pharynx Normal, Hearing Grossly Normal. negative: Scleral Icterus (R), Scleral Icterus (L) Neck: positive: Trachea midline, Supple. negative: Tender, Lymphadenopathy (R) , Lymphadenopathy (L) Respiratory/Chest: positive: Lungs Clear, Normal Breath Sounds. negative: Respiratory Distress, Accessory Muscle Use, Crackles, Rales, Rhonchi, Stridor, Wheezing Cardiovascular: positive: Regular Rhythm, Tachycardia Vascular Pulses: Dorsalis-Pedis (R): 2+, Doralis-Pedis (L): 2+ Gastrointestinal/Abdominal: positive: Normal Bowel Sounds, Tender (all stone), Soft. negative: Guarding, Rebound, Hernia Musculoskeletal: positive: Normal Inspection. negative: CVA Tenderness Extremity: positive: Normal Capillary Refill, Normal Inspection, Normal Range of Motion, Pelvis Stable. 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 NML intact, Fully Oriented, Alert, Normal Mood/ Affect, Normal Response, Motor Strength 08/16 ED Treatment Course - LABORATORY CBC & Chemistry Diagram: 02/19/19 14:00 02/19/19 14:00 - ADDITIONAL ORDERS Additional order review: Laboratory Results 02/19/19 02/19/19 02/19/19 14:22 14:22 14:00 Sodium 138 Potassium 4.1 Chloride 105 Carbon Dioxide 27 Anion Gap 6 L BUN 16.6 Creatinine 0.8 Est GFR (CKD-EPI)AfAm 106.88 Est GFR (CKD-EPI)NonAf 92.22 Random Glucose 114 H Calcium 9.8 Total Bilirubin 0.4 AST 16 ALT 25 Alkaline Phosphatase 86 Total Protein 7.6 Albumin 4.5 Lipase 71 L Urine Color Dk yellow Urine Appearance Cloudy Urine pH 5.5 Ur Specific [place] 1.040 H Urine Protein Trace Urine Glucose (UA) Negative Urine Ketones Trace H Urine Blood Trace Urine Nitrite Negative Urine Bilirubin Negative Urine Urobilinogen 1.0 Ur Leukocyte Esterase Negative Urine WBC (Auto) 2 Urine Casts (Auto) 18 U Epithel Cells (Auto) 9.0 Urine Bacteria (Auto) 31.1 Urine HCG, Qual Negative 02/19/19 14:00 RBC 4.67 MCV 88.0 MCHC 34.3 RDW 12.7 Neutrophils % 65.9 Lymphocytes % 30.4 Monocytes % 2.9 L Eosinophils % 0.4 Basophils % 0.4 - Medications Given in the ED: ED Medications Discontinued Medications Generic Name Dose Route Start Last Admin Trade Name Freq PRN Reason Stop Dose Admin Acetaminophen 1,000 mg 02/19/19 13:37 02/19/19 14:24 Ofirmev Injection - IVPB 02/19/19 13:38 1,000 mg ONCE ONE Administration Sodium Chloride 1,000 mls @ 1,000 mls/hr 02/19/19 13:37 02/19/19 14:24 Normal Saline - IV 02/19/19 14:36 1,000 mls/hr ASDIR STA Administration Ondansetron HCl 4 mg 02/19/19 13:37 02/19/19 14:32 Zofran Injection IVPUSH 02/19/19 13:38 4 mg ONCE ONE Administration Medical Decision Making - Medical Decision Making 02/19/19 15:45 Socorro Beck is a 38F with PMH RLL AVM with TIA s/p multiple thoracotomies and lobar resection at [facility] c/b spinal injury, thoracic spinal surgery to T5- T10 with Dr. Castillo in September 2017, gastric bypass in March 2018, presenting with 3 weeks of intractable vomiting and back pain. RME evaluated via: CMP CBC Lipase Of[facility]ang[facility] Sawyer Presentation initially concerning for hardware malfunction or infection, but patient has no neurological deficits, WBC not elevated, no fever in ED. Consulted Dr. Castillo who is out of town, but knows patient well. Says she has history of opioid dependence and multiple ED visits for pain control, does not recommend further CT imaging of her hardware unless we have high suspicion of pathology there, but per last visit to his office a few weeks ago was well- healed without pathology or concern for infection at that time, has known screw loosening that is not emergent. Nausea and vomiting concerning for GI pathology given abd pain and history of gastric bypass. Lipase 71, low concern for pancreatitis. Possibly withdrawing on opioids vs. gastroenteritis vs. biliary pathology. Low concern for spinal infection at this time vs. abscess. Getting CT abd/pelvis with PO+IV contrast to evaluate abd pain as cause of N/V. 02/19/19 21:51 CT abdomen: Atelectasis and scarring in lung bases. Prior partial right pneumonectomy changes. No pleural effusions. Mild elevation of right hemidiaphragm. Prior gastric sleeve. Moderate cholelithiasis. The liver, pancreas, and adrenal glands are unremarkable. Mild splenomegaly. No renal or urinary calculi. No AAA. No evidence for diverticulitis, small bowel obstruction, free fluid, or free air. Surgical sutures around the cecum are suggestive of appendectomy. 1.2 cm left ovarian cyst. Surgical changes in the thoracic spine. Unremarkable for acute pathology. Patient nausea improved, will PO challenge for dispo. 02/19/19 22:26 Patient sitting up, walking, tolerating water and crackers. Feeling much better, would like to go home. Writing for outpatient Reglan. Discharge - Discharge Information Problems reviewed: Yes Clinical Impression/Diagnosis: Back pain Qualifiers: Back pain location: thoracic back pain Chronicity: chronic Back pain laterality : midline Qualified Code(s): M54.6 - Pain in thoracic spine Condition: Stable Disposition: HOME - Admission No - Additional Discharge Information Prescriptions: Metoclopramide HCl [Reglan -] 10 mg PO DAILY #30 tablet - Follow up/Referral Referrals: Femi Antoine MD [Primary Care Provider] - - Patient Discharge Instructions Additional Instructions: Today you were evaluated for back pain, belly pain, nausea, and vomiting. We evaluated you and are not concerned about your back having infection or your hardware coming apart at this time. We gave you pain medications and Zofran through your IV. Your blood labs do not show evidence of infection, anemia, or electrolyte abnormalities. Your CT scan of your abdomen shows no problems. Your nausea is likely related to your pain, which is poorly controlled on your current medications. Alternatively, your pain medication can be too much for your stomach. You need to follow-up with Dr. Castillo or your primary doctor for alternatives to your current pain regimen. Please try to reduce your oxycodone to 20mg instead of 30mg and see if that is effective. I have sent a prescription for Reglan, which is a different anti-nausea medication that worked well for you in the emergency room. Please follow-up with your primary doctor in the next 3 days for further care. Please follow-up with Dr. David and Dr. Castillo as scheduled with them. If you experience worsening nausea, vomiting, headache, back pain, fever, changes to vision, numbness/tingling in your legs, or any other new or concerning symptoms , please return to the emergency room. - Post Discharge Activity
[2019-02-19 16:14] LABS: URINE RBC 10.2 /hpf (0-4)
--- NOTE | 2019-02-19 16:32 | PDOC ---
Documentation entered by Tiffanie Fang SCRIBE, acting as scribe for Frances Alexander MD. Frances Alexander MD: This documentation has been prepared by the Leoncio banegas Nirvannie, SCRIBE, under my direction and personally reviewed by me in its entirety. I confirm that the documentation accurately reflects all work, treatment, procedures, and medical decision making performed by me. Attending Attestation - Resident Resident Name: PatriciamarkieFran - ED Attending Attestation I have performed the following: I have examined & evaluated the patient, The case was reviewed & discussed with the resident, I agree w/resident's findings & plan - HPI HPI: 02/19/19 15:40 Ms. Beck is a 37 yo F, with PMH of RLL due to AVM, pt s/p complicateion requiring thoracic spinal surgery (T5-T10; 07/2017) and multiple thoracotomies. Pt also s/p gastric bypass last year Pt presents with a complaint of vomiting, nausea, inability to tolerate po Pt has also been unable to take her pain medications No fevers or chills Last BM - yesterday --> diarrhea No flatus today Pt reports severe back pain was seen by her neurologist today who sent her to the ER for assessment She denies new neurological compliants Pt denies any cigarette, alcohol, or drug use. Pt denies any recent travel or sick contacts. - Physicial Exam PE: 02/19/19 15:39 GENERAL: The patient is in no acute distress, patient appears uncomfortable. ENT: Ears normal, nares patent, oropharynx clear without exudates. Moist mucous membranes. NECK: Normal range of motion, supple LUNGS: Breath sounds equal, clear to auscultation bilaterally. No wheezes, and no crackles. HEART:Regular rate and rhythm, normal S1 and S2 without murmur, rub or gallop. ABDOMEN: Soft, diffusely tender to palpation, no involuntary guarding, no rebound, no abdominal distention EXTREMITIES: Normal range of motion, no edema. NEUROLOGICAL: Cranial nerves II through XII grossly intact. Normal speech. No focal neurological deficits. SKIN: Warm, Dry, well-healed surgical scars 02/19/19 16:32 - Medical Decision Making 02/19/19 16:29 38-year-old female presenting to the emergency department with a complaint of intractable nausea and vomiting, inability to tolerate p.o. Patient Differential diagnosis includes: Small bowel obstruction open (given history of gastric bypass), gastric outlet obstruction, biliary colic, pancreatitis, gastric ulcer, opiate withdrawal We will do: Lab IV fluid Antiemetics Analgesia CT of the abdomen and pelvis Contact neurosurgery Contact neurologist Call placed to this patient's neurosurgeon He states that this patient does not need spinal imaging as he saw her as of 2 weeks ago. She has known loosening of her hardware, but there is no acute need for intervention Laboratory Tests 02/19/19 02/19/19 02/19/19 14:00 14:00 14:22 WBC 9.6 Hgb 14.1 Hct 41.1 BUN 16.6 Creatinine 0.8 Lipase 71 L Urine Nitrite Ur Leukocyte Esterase Urine WBC (Auto) Urine RBC (Auto) Urine HCG, Qual Negative 02/19/19 14:22 WBC Hgb Hct BUN Creatinine Lipase Urine Nitrite Negative Ur Leukocyte Esterase Negative Urine WBC (Auto) 2 Urine RBC (Auto) 10.2 Urine HCG, Qual Pending CT of the abdomen and pelvis Pending called to neurologist Patient pending CT Signed out to Dr. Layton
[2019-02-19] MEDS ORDERED: HYDROmorphone HCL CARPU-JECT 2 MG/1 ML DISP.SYRIN IVPB ONE (17:22)
[2019-02-19] MEDS ORDERED: METOCLOPRAMIDE HCL INJECTION 10 MG/2 ML VIAL IVPB ONE (17:37)
[2019-02-19] MEDS ORDERED: HYDROmorphone HCl 2 MG/ML VIAL ONE (17:47)
[2019-02-19] MEDS ORDERED: METOCLOPRAMIDE HCL INJECTION 10 MG/2 ML VIAL ONE (17:47)
[2019-02-19 20:49] VITALS: BP 138/77; PULSE 58; TEMP 97.9
== END 2019-02-19 22:40 | disposition home or self-care (01) ==
LOC: JER 13:30
PROC: 3E0337Z Introduction of Electrolytic and Water Balance Substance into Peripheral Vein, Percutaneous Approach (ICD-10-PCS; principal; 2019-02-19)
PROC: 3E033NZ Introduction of Analgesics, Hypnotics, Sedatives into Peripheral Vein, Percutaneous Approach (ICD-10-PCS; 2019-02-19)
PROC: 3E033GC Introduction of Other Therapeutic Substance into Peripheral Vein, Percutaneous Approach (ICD-10-PCS; 2019-02-19)
PROC: 3E0333Z Introduction of Anti-inflammatory into Peripheral Vein, Percutaneous Approach (ICD-10-PCS; 2019-02-19)
DX: M54.6 Pain in thoracic spine (principal); Z88.6 Allergy status to analgesic agent; Z86.73 Personal history of transient ischemic attack (TIA), and cerebral infarction without residual deficits; Q28.2 Arteriovenous malformation of cerebral vessels; Z98.84 Bariatric surgery status; Z98.890 Other specified postprocedural states
CPT/HCPCS: 36415; 74177-TC; 80053; 81003; 83690; 84703; 85025; 99284-25; J0131; J7030

== ENCOUNTER 2019-03-30 09:02 | Inpatient (IN) | payer OTHER ==
[2019-03-29 15:00] VITALS: BMI 36.3
[2019-03-30] MEDS ORDERED: SCOPOLAMINE HYDROBROMIDE 1 PATCH PATCH.TD72 ONE ×2 (10:49→10:53)
[2019-03-30] MEDS ORDERED: ONDANSETRON 4 MG/2 ML VIAL ONE (10:58)
[2019-03-30] MEDS ORDERED: MIDAZOLAM HCL 2 MG/2 ML SINGLE DOSE VIAL ONE (11:05)
[2019-03-30] MEDS ORDERED: morphine SULFATE/PF 0.5 MG/ML (2cc Syringe - QUVA) ONE (11:05)
[2019-03-30] MEDS ORDERED: ROCURONIUM BROMIDE 50 MG/5 ML SYRINGE ONE ×3 (11:05→13:03)
[2019-03-30] MEDS ORDERED: PROPOFOL 20 ML ONE (11:05)
[2019-03-30] MEDS ORDERED: GENTAMICIN SO4 80 MG/2 ML VIAL ONE (11:08)
[2019-03-30] MEDS ORDERED: THROMBIN (BOVINE) 20,000 UNIT VIAL TP ONE ×2 (11:09→12:11)
[2019-03-30] MEDS ORDERED: LIDOCAINE 1%-EPI 1:100,000 30 ML MDV IJ ONE (11:09)
--- NOTE | 2019-03-30 11:10 | HP ---
History & Physical Update - History History: No Change - Physical Physical: No Change - Assessment Assessment: No Change - Plan Plan: No Change (no changess since visit on 03/18/[address] Carroll)
[2019-03-30] MEDS ORDERED: SODIUM CHLORIDE 0.9% P/F 10 ML VIAL IJ ONE ×2 (11:38→11:40)
[2019-03-30] MEDS ORDERED: VANCOMYCIN 1,000 MG VIAL (RESTRICTED TO ID ONLY) ONE ×2 (11:38→12:49)
[2019-03-30] MEDS ORDERED: ceFAZolin SODIUM 1 GM VIAL ONE ×2 (11:38→18:55)
[2019-03-30] MEDS ORDERED: ceFAZolin SODIUM 1 GM VIAL IVPB ONE (11:40)
[2019-03-30] MEDS ORDERED: VANCOMYCIN 1,000 MG VIAL (RESTRICTED TO ID ONLY) IVPB ONE ×2 (11:42→13:15)
[2019-03-30] MEDS ORDERED: LIDOCAINE 1%/EPI 1:100000 (20 ML MULTI DOSE VIAL) INF ONE (11:51)
[2019-03-30] MEDS ORDERED: DEXAMETHASONE SOD PHOSPHATE 4 MG/1 ML VIAL ONE ×2 (11:57→14:16)
[2019-03-30] MEDS ORDERED: BACITRACIN 50,000 UNITS VIAL NR ONE ×2 (12:04→13:15)
[2019-03-30] MEDS ORDERED: GENTAMICIN SO4 80 MG/2 ML VIAL IVPB ONE (12:04)
[2019-03-30] MEDS ORDERED: BUPIVACAINE LIPOSOME/PF (EXPAREL) 266 MG/20 ML VIAL ONE (12:10)
[2019-03-30] MEDS ORDERED: GLYCOPYRROLATE 0.2 MG/1 ML VIAL ONE (14:17)
[2019-03-30] MEDS ORDERED: NEOSTIGMINE METHYLSULFATE 0.5 MG/1 ML - 10 ML MDV ONE (14:17)
[2019-03-30] MEDS ORDERED: BUPIVACAINE HCL/PF 0.5% (5 MG/ML) 30 ML VIAL IJ ONE (14:20)
[2019-03-30] MEDS ORDERED: BUPIVACAINE LIPOSOME/PF (EXPAREL) 266 MG/20 ML VIAL NR ONE (14:20)
[2019-03-30] MEDS ORDERED: PROMETHAZINE HCL 25 MG/1 ML VIAL IVPB PRN ×2 (15:28)
[2019-03-30] MEDS ORDERED: diphenhydrAMINE HCL 25 MG CAPSULE (FP) PO PRN (15:28)
[2019-03-30] MEDS ORDERED: DEXAMETHASONE SOD PHOSPHATE 4 MG/1 ML VIAL IVPUSH PRN (15:28)
[2019-03-30] MEDS ORDERED: ONDANSETRON 4 MG/2 ML VIAL IVPUSH PRN ×3 (15:28)
[2019-03-30] MEDS ORDERED: HYDROmorphone *PCA* 10MG/50ML DISP.SYRIN ONE (15:29)
[2019-03-30] MEDS ORDERED: morphine SULFATE/PF 0.5 MG/ML (2cc Syringe - QUVA) EP ONE (15:30)
[2019-03-30] MEDS ORDERED: LACTATED RINGERS SOLUTION 1,000 ML/1,000 ML INFUS.BAG IV SCH (15:30)
--- NOTE | 2019-03-30 16:22 | OP ---
Operative Note - Note: Operative Date: 03/30/19 Pre-Operative Diagnosis: Thoracic instability Operation: Exploration of Spinal fusion with removal of hardware, Re-operative T5-T10, laminectomies with osteotomies and arthrotomies with T5-T12 Posterior Lumbar fusion Post-Operative Diagnosis: Same as Pre-op Surgeon: Abdirahman Goodrich Director Marketing Communications: Aquiles Curry Anesthesiologist/DELIVERY HELPER: Rafa Bernal Anesthesia: General Operative Report Dictated: Yes
[2019-03-30] MEDS: HYDROmorphone *PCA* 10MG/50ML DISP.SYRIN PCA SCH (16:30)
[2019-03-30] MEDS: LACTATED RINGERS SOLUTION 1,000 ML IV SCH (16:41)
[2019-03-30] MEDS ORDERED: DEXTROSE 5%-WATER - 50 ML IVPB ONE (18:55)
[2019-03-30] MEDS: CEFAZOLIN 1 GM in DEXTROSE 5%-WATER - 50 ML IVPB SCH (18:59)
[2019-03-30] MEDS: TIZANIDINE HCL 4 MG TABLET PO SCH (22:38)
[2019-03-30] MEDS: GABAPENTIN 400 MG CAPSULE PO SCH (22:38)
[2019-03-30] MEDS: DOCUSATE SODIUM 100 MG CAPSULE (FP) PO SCH (22:39)
[2019-03-30] MEDS: ATORVASTATIN CA 40 MG TABLET (FP) PO SCH (22:39)
[2019-03-30] MEDS: HEPARIN NA (PORCINE) 5,000 UNITS/ML 1ML VIAL SQ SCH (22:40)
[2019-03-31] MEDS: LACTATED RINGERS SOLUTION 1,000 ML IV SCH ×3 (00:52→20:16)
[2019-03-31] MEDS ORDERED: ceFAZolin SODIUM 1 GM VIAL ONE ×3 (01:30→18:14)
[2019-03-31] MEDS ORDERED: DEXTROSE 5%-WATER - 50 ML IVPB ONE ×3 (01:30→18:14)
[2019-03-31] MEDS: CEFAZOLIN 1 GM in DEXTROSE 5%-WATER - 50 ML IVPB SCH ×3 (01:51→18:15)
[2019-03-31 06:40] LABS: HEMATOCRIT 28.5 % (32.4-45.2); HEMOGLOBIN 9.9 GM/dL (10.7-15.3); MCH 30.9 pg (25.7-33.7); MCHC 34.8 g/dl (32.0-36.0); MEAN CELL VOLUME 88.7 fl (80-96); MEAN PLT VOLUME 9.4 fl (7.5-11.1); PLATELET COUNT 149 K/MM3 (134-434); RBC 3.22 M/mm3 (3.60-5.2); RDW 12.7 % (11.6-15.6); WHITE BLOOD COUNT 9.8 K/mm3 (4.0-10.0)
[2019-03-31] MEDS: HYDROmorphone *PCA* 10MG/50ML DISP.SYRIN PCA SCH ×3 (06:48→15:01)
[2019-03-31] MEDS: TIZANIDINE HCL 4 MG TABLET PO SCH ×3 (06:53→21:49)
[2019-03-31] MEDS: DOCUSATE SODIUM 100 MG CAPSULE (FP) PO SCH ×3 (06:53→21:52)
[2019-03-31] MEDS: HEPARIN NA (PORCINE) 5,000 UNITS/ML 1ML VIAL SQ SCH ×3 (06:53→21:51)
[2019-03-31 06:58] LABS: BLOOD UREA NITROGEN 10.9 mg/dL (7-18); CALCIUM 8.9 mg/dL (8.5-10.1); CREATININE 0.6 mg/dL (0.55-1.3); POTASSIUM 4.2 mmol/L (3.5-5.1)
[2019-03-31] MEDS: FERROUS SO4 325 MG TABLET (FP) PO SCH (09:34)
[2019-03-31] MEDS: FOLIC ACID 1 MG TABLET (FP) PO SCH (09:34)
[2019-03-31] MEDS: GABAPENTIN 400 MG CAPSULE PO SCH ×4 (09:35→21:50)
--- NOTE | 2019-03-31 09:35 | PN ---
Progress Note (short form) - Note Progress Note: Pt is POD1 s/p extensive T5-T1- fusion/decompression. Pt has an extensive pain history; received TLIP block, spinal duramorph, and MAILMASTER but despite this c/o 8/ 10 pain. Will increase MAILMASTER settings for now, in hopes of better pain control. Will follow.
--- NOTE | 2019-03-31 09:38 | PN ---
Progress Note (short form) - Note Progress Note: POD#1 Pt with complaints of pain, having difficulty moving side to side in bed. No numbness or tingling to extremities or difficulty moving. Vital Signs Period Temp Pulse Resp BP Sys/Collins Pulse Ox Last 24 Hr 98.1 F-99.0 F 50-69 13-20 88-118/40-64 97-100 SHANTA: 220 serosangreous FC: 1340 clear urine GEN: A&0x3, NAD BACK: dressing c/d/i. SHANTA in place Upper ext: processor inspector strength equal b/l moving upper ext without difficulty. LE: 5/5 dorsi/planar flexion b/l. SCDs in place no tenderness or swelling noted b/l. CBC, BMP /18/19 06:00 18/ 06:00 A/p: 38 yo female s/p Exploration of Spinal fusion with removal of hardware, Re- operative T5-T10, laminectomies with osteotomies and arthrotomies with T5-T12 Posterior Lumbar fusion. As per anesthesia will increase DRYWALL TAPER dose. Continue gabapentin for pain relief. OOB with PT, TLSO brace ordered DVT ppx with heparin SQ/SCDs Diet as tolerated and stool softners to avoid constipation with narcotic use Continue piña, pt received duramorph and describes a h/o urinary retention. Remove piña tomorrow when pain better controlled, oob. D/w Dr. Goodrich
--- NOTE | 2019-03-31 11:25 | PN ---
Progress Note, Physician Chief Complaint: AWAKE ALERT S/P THORACIC SPINE HARDWARE REMOVAL AND FUSION T5-T10 WITH HARDWARE. C/O PAIN ON MANAGER HEART FAILURE - Current Medication List Current Medications: Active Medications Atorvastatin Calcium (Lipitor -) [address] [facility] Last Admin: 03/30/19 22:39 Dose: 40 mg Dexamethasone Sodium Phosphate (Decadron Injection -) 4 mg IVPUSH ONCE PRN PRN Reason: NAUSEA AND/OR VOMITING Diphenhydramine HCl (Benadryl Injection -) 12.5 mg IVPUSH ONCE PRN PRN Reason: FOR ITCHING Diphenhydramine HCl (Benadryl -) 25 mg PO Q6H PRN PRN Reason: FOR ITCHING Docusate Sodium (Colace -) [address] [facility] Last Admin: 03/31/19 06:53 Dose: 100 mg Fentanyl (Sublimaze Injection -) 50 mcg IVPUSH [id number] PRN PRN Reason: PAIN-PACU ORDER X 4 DOSES ONLY Last Admin: 03/30/19 16:15 Dose: 50 mcg Ferrous Sulfate (Feosol -) [address] [facility] Last Admin: 03/31/19 09:34 Dose: 325 mg Folic Acid (Folic Acid -) [address] [facility] Last Admin: 03/31/19 09:34 Dose: 1 mg Gabapentin (Neurontin -) [address] [facility] Last Admin: 03/31/19 09:35 Dose: 800 mg Heparin Sodium (Porcine) (Heparin -) 5,[address] [facility] Last Admin: 03/31/19 06:53 Dose: 5,000 unit Hydromorphone HCl (Hydromorphone 10 Mg/50 Ml-Ns) 10 mg MANAGER HEART FAILURE MANAGER HEART FAILURE [facility]; Protocol Stop: 04/06/19 15:29 Lactated Ringer's (Lactated Ringers Solution) 1,000 mls @ 125 mls/hr IV ASDIR [facility] Last Admin: 03/31/19 00:52 Dose: 125 mls/hr Cefazolin Sodium 1 gm/ (Dextrose) 50 mls @ 100 mls/hr IVPB Q8H-IV [facility] Last Admin: 03/31/19 09:34 Dose: 100 mls/hr Ondansetron HCl (Zofran Injection) 4 mg IVPUSH Q4H PRN PRN Reason: NAUSEA AND/OR VOMITING Promethazine HCl (Phenergan Injection -) 12.5 mg IVPB Q6H PRN PRN Reason: NAUSEA-FOR RESCUE AFTER 15 MIN Tizanidine HCl (Tizanidine Hcl) [address] [facility] Last Admin: 03/31/19 06:53 Dose: 8 mg - Objective Vital Signs: Vital Signs Temperature 98.6 F 03/31/19 05:00 Pulse Rate 65 03/31/19 07:18 Respiratory Rate 18 03/31/19 07:18 Blood Pressure 78/46 L 03/31/19 07:18 O2 Sat by Pulse Oximetry (%) 98 03/31/19 07:18 Constitutional: Yes: Moderate Distress Cardiovascular: Yes: Bradycardia Respiratory: Yes: Diminished Gastrointestinal: Yes: Soft Genitourinary: Yes: Other Musculoskeletal: Yes: Back Pain Edema: No Wound/Incision: Yes: Dressing Dry and Intact Neurological: Yes: Paresthesia, Pre-Existing Deficit Labs: CBC, BMP 03/31/19 06:00 03/31/19 06:00 Problem List - Problems (1) Pulmonary infiltrate Code(s): R91.8 - OTHER NONSPECIFIC ABNORMAL FINDING OF LUNG FIELD (2) Anemia Code(s): D64.9 - ANEMIA, UNSPECIFIED (3) Back pain Code(s): M54.9 - DORSALGIA, UNSPECIFIED Qualifiers: Back pain location: thoracic back pain Chronicity: chronic Back pain laterality: midline Qualified Code(s): M54.6 - Pain in thoracic spine; G89.29 - Other chronic pain (4) Status post thoracic spinal fusion Code(s): Z98.1 - ARTHRODESIS STATUS Assessment/Plan POST-OP THORACIC SPINE FUSION WITH HARDWARE IN PAIN ON MANAGER HEART FAILURE/FENTANYL PAIN CONTROL MEDS CAN NOT BE INCREASED BECAUSE OF BRADYCARDIA WITH HYPOTENSION. PATIENT ON CEFAZOLIN, POST-OP LLQ INFILTRATE IN CXR POSSIBLE ATELECTASIS INCENTIVE SPIROMETRY ID CONSULT PT OOB TO CHAIR WITH NEUROSURGERY GUIDENCE WOULD BENEFIT FROM PLACEMENT AT [facility] DVT PROPHYLAXIS
--- NOTE | 2019-03-31 13:35 | CON.ID ---
Consult Consult Specialty:: infectious diseases Referred by:: Reason for Consultation:: left lower lobe infiltrate, - History of Present Illness Chief Complaint: post op pain History of Present Illness: 37 yo F, with PMH of RLL due to AVM, pt s/p complication requiring thoracic spinal surgery (T5-T10; 07/2017) and multiple thoracotomies. Pt also s/p gastric bypass last year was admitted to the hospital for spinal instability and underwent Exploration of Spinal fusion with removal of hardware , Re-operative T5-T10, laminectomies with osteotomies and arthrotomies with T5- T12 Posterior Lumbar fusion post op except pain pain has been doing well on her work up patient was found to ahve left lower lobe infiltrate denies any fever or any breathing difficulty - History Source History Provided By: Patient Limitations to Obtaining History: No Limitations - Past Medical History ...LMP: 06/06/17 ...LMP Comment: blding from April to 1week ago Musculoskeletal: Yes: Chronic low back pain - Alcohol/Substance Use Hx Alcohol Use: No - Smoking History Smoking history: Never smoked Have you smoked in the past 12 months: No Aproximately how many cigarettes per day: 0 Home Medications - Allergies Allergies/Adverse Reactions: Allergies Allergy/AdvReac Type Severity Reaction Status Date / Time acetaminophen [[facility] AdvReac Mild Hives Verified 03/30/19 10:03 - Home Medications Home Medications: Ambulatory Orders Gabapentin 800 mg PO QID 08/04/17 oxyCODONE HCL [Roxicodone -] 20 mg PO QID PRN MDD 8 10/04/17 Clonazepam [Klonopin] 1 mg PO TID PRN 02/19/19 Ondansetron [Zofran -] 8 mg PO TID 02/19/19 Ibuprofen [Motrin -] 400 mg PO PRN PRN 03/29/19 Tizanidine HCl 8 mg PO TID 03/29/19 Atorvastatin Ca [Lipitor] 40 mg PO HS 03/30/19 Review of Systems - Review of Systems Constitutional: reports: No Symptoms Eyes: reports: No Symptoms HENT: reports: No Symptoms Neck: reports: No Symptoms Cardiovascular: reports: No Symptoms Respiratory: reports: No Symptoms Gastrointestinal: reports: No Symptoms Genitourinary: reports: No Symptoms Musculoskeletal: reports: Other Integumentary: reports: No Symptoms Neurological: reports: No Symptoms Endocrine: reports: No Symptoms Hematology/Lymphatic: reports: No Symptoms Psychiatric: reports: No Symptoms Physical Exam Vital Signs: Vital Signs Temperature 99 F 03/31/19 09:00 Pulse Rate 65 03/31/19 11:27 Respiratory Rate 20 03/31/19 11:27 Blood Pressure 90/45 L 03/31/19 11:27 O2 Sat by Pulse Oximetry (%) 98 03/31/19 11:27 Constitutional: Yes: Calm, Mild Distress, Obese Eyes: Yes: Conjunctiva Clear HENT: Yes: Atraumatic, Normocephalic Neck: Yes: Supple, Trachea Midline Cardiovascular: Yes: Regular Rate and Rhythm Respiratory: Yes: Regular, CTA Bilaterally Gastrointestinal: Yes: Normal Bowel Sounds, Soft Musculoskeletal: Yes: Other Wound/Incision: Yes: Clean/Dry Neurological: Yes: Alert, Oriented Psychiatric: Yes: Alert, Oriented Labs: CBC, BMP 03/31/19 06:00 03/31/19 06:00 Imaging - Results Cat Scan: Report Reviewed, Image Reviewed Assessment/Plan this patient with multiple medical problems post surgery and finding of infiltrate i would continue cefazolin at this time incentive yuriy pain mgmt rest as per the team watch for fevers
[2019-03-31] MEDS ORDERED: PT OWN MED DRAWER 7, Y5N ONE (14:17)
[2019-03-31] MEDS ORDERED: ALBUTEROL SO4 2.5/IPRATROPIUM 0.5 INH SOL 3 ML VIAL.NEB. NEB PRN (21:27)
[2019-03-31] MEDS: ATORVASTATIN CA 40 MG TABLET (FP) PO SCH (21:52)
[2019-04-01] MEDS ORDERED: ceFAZolin SODIUM 1 GM VIAL ONE ×3 (01:55→16:57)
[2019-04-01] MEDS ORDERED: DEXTROSE 5%-WATER - 50 ML IVPB ONE ×3 (01:55→16:58)
[2019-04-01] MEDS: CEFAZOLIN 1 GM in DEXTROSE 5%-WATER - 50 ML IVPB SCH ×3 (02:10→17:27)
[2019-04-01] MEDS ORDERED: VANCOMYCIN 1 GM in D5W (PRE-DOCKED) 1,000 MG/250 ML IVPB ONE (02:22)
[2019-04-01] MEDS ORDERED: CEFEPIME 1 GM in DEXTROSE 5%-WATER 100 ML IVPB ONE (02:22)
[2019-04-01] MEDS ORDERED: ACETAMINOPHEN 325 MG TABLET (FP) PO ONE (02:45)
--- NOTE | 2019-04-01 02:47 | HOSP ---
Subjective - Review of Symptoms Events since last encounter: RN called to report temp 102.9 oral. Subjective: Pt reports worsening cough. She states that she feels as if mucous is going to come up but then it "gets stuck". Also reports being hot all evening; feeling as if she was febrile. Temp earlier was 99. Denies increased back pain, sore throat, rhinorrhea, chest pain. Reports some lower abdominal cramping as if she has to move her bowels but can't. Denies N/V/D, dysuria, urinary frequency. Pulmonary: Yes: Cough Physical Examination Vital Signs: Vital Signs Temperature 102.9 F H 04/01/19 02:00 Pulse Rate 87 04/01/19 02:00 Respiratory Rate 18 04/01/19 02:00 Blood Pressure 102/61 04/01/19 02:00 O2 Sat by Pulse Oximetry (%) 98 03/31/19 23:01 Constitutional: Yes: No Distress Cardiovascular: Yes: Regular Rate and Rhythm, S1, S2. No: Murmur Respiratory: Yes: CTA Bilaterally Gastrointestinal: Yes: Normal Bowel Sounds, Soft. No: Tenderness Edema: No Labs: CBC, BMP 03/31/19 06:00 03/31/19 06:00 Hospitalist Encounter Assessment: Fever in post op patient - blood cultures x 2 now (will do am labs as well) - lactic acid, will give IVF bolus if elevated, RN also reports bp was low yesterday afternoon. - broaden antibiotic coverage to cefepime 1g, vancomycin 1.5g x 1 - will discuss with ID in am.
[2019-04-01] MEDS ORDERED: VANCOMYCIN HCL 1,500 MG in DEXTROSE 5%-WATER - 500 ML IVPB ONE (03:00)
[2019-04-01] MEDS ORDERED: CEFEPIME HCL 1 GM VIAL (RESTRICTED TO ID) ONE (03:15)
[2019-04-01] MEDS ORDERED: DEXTROSE 5%-WATER 100 ML IVPB ONE (03:16)
[2019-04-01] MEDS: POLYETHYLENE GLYCOL 3350 119 GM BTL PO SCH ×2 (03:21→22:42)
[2019-04-01 03:24] LABS: BASO % 0.2 % (0-2.0); EOS % 2.1 % (0-4.5); HEMATOCRIT 28.8 % (32.4-45.2); HEMOGLOBIN 9.9 GM/dL (10.7-15.3); LYMPH % 27.1 % (8-40); MCH 30.7 pg (25.7-33.7); MCHC 34.4 g/dl (32.0-36.0); MEAN CELL VOLUME 89.4 fl (80-96); MEAN PLT VOLUME 9.7 fl (7.5-11.1); MONO % 6.4 % (3.8-10.2); NEUT % 64.2 % (42.8-82.8); PLATELET COUNT 115 K/MM3 (134-434); RBC 3.23 M/mm3 (3.60-5.2); RDW 12.8 % (11.6-15.6); WHITE BLOOD COUNT 8.1 K/mm3 (4.0-10.0)
[2019-04-01 03:53] LABS: BLOOD UREA NITROGEN 10.5 mg/dL (7-18); CALCIUM 7.9 mg/dL (8.5-10.1); CREATININE 0.7 mg/dL (0.55-1.3); MAGNESIUM 1.6 mg/dL (1.8-2.4)
[2019-04-01] MEDS ORDERED: MAGNESIUM SULF 50% (8.12 MEQ/2 ML-1 GM VIAL) IVPB ONE (04:15)
[2019-04-01] MEDS: DOCUSATE SODIUM 100 MG CAPSULE (FP) PO SCH ×3 (06:16→22:41)
[2019-04-01] MEDS: TIZANIDINE HCL 4 MG TABLET PO SCH ×3 (06:16→22:40)
[2019-04-01] MEDS: HEPARIN NA (PORCINE) 5,000 UNITS/ML 1ML VIAL SQ SCH ×3 (06:17→22:40)
[2019-04-01] MEDS: GABAPENTIN 400 MG CAPSULE PO SCH ×5 (09:15→22:41)
[2019-04-01] MEDS: FERROUS SO4 325 MG TABLET (FP) PO SCH (09:17)
[2019-04-01] MEDS: FOLIC ACID 1 MG TABLET (FP) PO SCH (09:18)
[2019-04-01] MEDS: LACTATED RINGERS SOLUTION 1,000 ML IV SCH ×3 (09:19→23:05)
[2019-04-01] MEDS ORDERED: HYDROmorphone *PCA* 10MG/50ML DISP.SYRIN PCA SCH (09:23)
--- NOTE | 2019-04-01 10:18 | PN ---
Progress Note (short form) - Note Progress Note: 38yo F s/p exploration of spinal fusion T5-10 & T5-T12 fusion, pt seen and examined at bedside. Pt states that her pain is much better controlled now that MANAGER BANQUET was increased. Pt is actually fairly somulent during exam. Pt states tolerating PO and ambulating, requesting to have piña removed. Pt denies n/v, cp, SOB. Nursing reports pt spiked fever overnight of 102. Blood and urine cultures were sent. Last Vital Signs Temp Pulse Resp BP Pulse Ox 99.2 F 67 18 98/46 L 95 04/01/19 09:12 04/01/19 09:12 04/01/19 09:12 04/01/19 09:12 04/01/19 07:01 CBC, BMP 04/01/19 02:55 04/01/19 02:55 PE: Gen: a&O X3 Resp: breathing comfortably Back: incision is clean with no erythema or discharge, Drain present with serosanguinous drainage. Output: 100ml Ext: no weakness or numbness. Problem List - Problems (1) Status post thoracic spinal fusion Assessment/Plan: Plan -will D/c piña and decrease MANAGER BANQUET dosage. -OOB/ambulate with PT -trend temps, abx as per med/ID -pt is cleared to go to med/surg floor Pt discussed with Dr. Goodrich, who agrees with plan Code(s): Z98.1 - ARTHRODESIS STATUS
--- NOTE | 2019-04-01 10:30 | PN ---
Progress Note, Physician Chief Complaint: awake more alert pain 10/21 - Current Medication List Current Medications: Active Medications Albuterol/Ipratropium (Duoneb -) 1 amp NEB Q6H PRN PRN Reason: SHORTNESS OF BREATH Atorvastatin Calcium (Lipitor -) 40 mg PO HS [facility] Last Admin: 03/31/19 21:52 Dose: 40 mg Dexamethasone Sodium Phosphate (Decadron Injection -) 4 mg IVPUSH ONCE PRN PRN Reason: NAUSEA AND/OR VOMITING Diphenhydramine HCl (Benadryl Injection -) 12.5 mg IVPUSH ONCE PRN PRN Reason: FOR ITCHING Diphenhydramine HCl (Benadryl -) 25 mg PO Q6H PRN PRN Reason: FOR ITCHING Docusate Sodium (Colace -) 100 mg PO TID [facility] Last Admin: 04/01/19 06:16 Dose: 100 mg Fentanyl (Sublimaze Injection -) 50 mcg IVPUSH [id number] PRN PRN Reason: PAIN-PACU ORDER X 4 DOSES ONLY Last Admin: 03/30/19 16:15 Dose: 50 mcg Ferrous Sulfate (Feosol -) 325 mg PO DAILY [facility] Last Admin: 04/01/19 09:17 Dose: 325 mg Folic Acid (Folic Acid -) 1 mg PO DAILY [facility] Last Admin: 04/01/19 09:18 Dose: 1 mg Gabapentin (Neurontin -) 800 mg PO QID [facility] Last Admin: 04/01/19 09:15 Dose: 800 mg Heparin Sodium (Porcine) (Heparin -) 5,000 unit SQ TID [facility] Last Admin: 04/01/19 06:17 Dose: 5,000 unit Hydromorphone HCl (Hydromorphone 10 Mg/50 Ml-Ns) 10 mg SENIOR PROJECT CONTROLS SPECIALIST SENIOR PROJECT CONTROLS SPECIALIST [facility]; Protocol Stop: 04/06/19 15:29 Lactated Ringer's (Lactated Ringers Solution) 1,000 mls @ 125 mls/hr IV ASDIR [facility] Last Admin: 04/01/19 09:19 Dose: 125 mls/hr Cefazolin Sodium 1 gm/ (Dextrose) 50 mls @ 100 mls/hr IVPB Q8H-IV [facility] Last Admin: 04/01/19 09:17 Dose: 100 mls/hr Ondansetron HCl (Zofran Injection) 4 mg IVPUSH Q4H PRN PRN Reason: NAUSEA AND/OR VOMITING Polyethylene Glycol (Miralax (For Daily Use) -) 17 gm PO HS [facility] Last Admin: 04/01/19 03:21 Dose: 17 grams Promethazine HCl (Phenergan Injection -) 12.5 mg IVPB Q6H PRN PRN Reason: NAUSEA-FOR RESCUE AFTER 15 MIN Tizanidine HCl (Tizanidine Hcl) 8 mg PO TID [facility] Last Admin: 04/01/19 06:16 Dose: 8 mg - Objective Vital Signs: Vital Signs Temperature 99.2 F 04/01/19 09:12 Pulse Rate 67 04/01/19 09:12 Respiratory Rate 18 04/01/19 09:12 Blood Pressure 98/46 L 04/01/19 09:12 O2 Sat by Pulse Oximetry (%) 95 04/01/19 07:01 Constitutional: Yes: Mild Distress Cardiovascular: Yes: Regular Rate and Rhythm Respiratory: Yes: Diminished Gastrointestinal: Yes: Soft Genitourinary: Yes: Other Musculoskeletal: Yes: Back Pain, Muscle Weakness Edema: Yes Edema: LLE: Trace, RLE: Trace Integumentary: Yes: Rash Wound/Incision: Yes: Dressing Dry and Intact Neurological: Yes: Paresthesia, Pre-Existing Deficit ...Motor Strength: LLE, RLE Psychiatric: Yes: Other Labs: CBC, BMP 04/01/19 02:55 04/01/19 02:55 Problem List - Problems (1) Pulmonary infiltrate Code(s): R91.8 - OTHER NONSPECIFIC ABNORMAL FINDING OF LUNG FIELD (2) Anemia Code(s): D64.9 - ANEMIA, UNSPECIFIED (3) Back pain Code(s): M54.9 - DORSALGIA, UNSPECIFIED Qualifiers: Back pain location: thoracic back pain Chronicity: chronic Back pain laterality: midline Qualified Code(s): M54.6 - Pain in thoracic spine; G89.29 - Other chronic pain (4) Status post thoracic spinal fusion Code(s): Z98.1 - ARTHRODESIS STATUS Assessment/Plan 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
[2019-04-01] MEDS ORDERED: HYDROmorphone HCL CARPU-JECT 2 MG/1 ML DISP.SYRIN IVPB PRN (11:12)
--- NOTE | 2019-04-01 11:28 | PN ---
Progress Note (short form) - Note Progress Note: Patient stable and was reported very drowsy this morning.Patient c/o pain score of 5-6/10 on movement.Will DC TENNIS COACH today and put patient on PO pain medication.
[2019-04-01] MEDS: oxyCODONE HCL 5 MG TABLET PO PRN ×2 (11:40→23:06)
[2019-04-01] MEDS: KETOROLAC TROMETHAMINE 30 MG/1 ML VIAL IVPUSH PRN ×2 (11:42→18:59)
[2019-04-01] MEDS ORDERED: PT OWN MED DRAWER 7, Y5N ONE ×3 (14:04→21:58)
--- NOTE | 2019-04-01 15:57 | SURG ---
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 T5 Bilateral Reoperative Laminectomies 2. T6 Bilateral Reoperative Laminectomies 3. T7 Bilateral Reoperative Laminectomies 4. T8 Bilateral Reoperative Laminectomies 5. T9 Bilateral Reoperative Laminectomies 6. T10 Laminectomies 7. T11 Laminectomies 8. T12 Laminectomies 9. Exploration of Spinal Fusion 10. Removal, posterior segmental instrumentation (technically challenging) 11. Fluoroscopy 12. Microdissection 13. Local Autograft 14. Bilateral soft tissue advancement flaps (100cm^2) 15. T8 Posterior osteotomy 16. T9 Posterior osteotomy 17. T10 Posterior osteotomy 18. T11 Posterior osteotomy 19. T12 Posterior osteotomy 20. Arthrodesis T5/6 Posterior/Lateral 21. Arthrodesis T6/7 Posterior/Lateral 22. Arthrodesis T7/8 Posterior/Lateral 23. Arthrodesis T8/9 Posterior/Lateral 24. Arthrodesis T9/10 Posterior/Lateral 25. Arthrodesis T10/11 Posterior/Lateral 26. Arthrodesis T11/12 Posterior/Lateral 27. Correction of Deformity I was present for the entirety of the operative procedure. For further detail, please refer to operative report. Visit type - Case Type Case Type: Scheduled - Emergency Emergency Visit: No - New patient This patient is new to me today: Yes Date on this admission: 04/01/19 - Critical Care Critical Care patient: No
--- NOTE | 2019-04-01 16:26 | PN ---
Progress Note, Physician History of Present Illness: spiked fevers blood cx send still draining a lot - Current Medication List Current Medications: Active Medications Albuterol/Ipratropium (Duoneb -) 1 amp NEB Q6H PRN PRN Reason: SHORTNESS OF BREATH Atorvastatin Calcium (Lipitor -) 40 mg PO HS [facility] Last Admin: 03/31/19 21:52 Dose: 40 mg Dexamethasone Sodium Phosphate (Decadron Injection -) 4 mg IVPUSH ONCE PRN PRN Reason: NAUSEA AND/OR VOMITING Diphenhydramine HCl (Benadryl Injection -) 12.5 mg IVPUSH ONCE PRN PRN Reason: FOR ITCHING Diphenhydramine HCl (Benadryl -) 25 mg PO Q6H PRN PRN Reason: FOR ITCHING Docusate Sodium (Colace -) 100 mg PO TID [facility] Last Admin: 04/01/19 14:10 Dose: 100 mg Ferrous Sulfate (Feosol -) 325 mg PO DAILY [facility] Last Admin: 04/01/19 09:17 Dose: 325 mg Folic Acid (Folic Acid -) 1 mg PO DAILY [facility] Last Admin: 04/01/19 09:18 Dose: 1 mg Gabapentin (Neurontin -) 800 mg PO QID [facility] Last Admin: 04/01/19 14:13 Dose: 800 mg Heparin Sodium (Porcine) (Heparin -) 5,000 unit SQ TID [facility] Last Admin: 04/01/19 14:10 Dose: 5,000 unit Hydromorphone HCl (Dilaudid Vial -) 2 mg IVPB Q8H PRN PRN Reason: PAIN LEVEL 7 - 10 Lactated Ringer's (Lactated Ringers Solution) 1,000 mls @ 125 mls/hr IV ASDIR [facility] Last Admin: 04/01/19 16:20 Dose: Not Given Cefazolin Sodium 1 gm/ (Dextrose) 50 mls @ 100 mls/hr IVPB Q8H-IV [facility] Last Admin: 04/01/19 09:17 Dose: 100 mls/hr Ketorolac Tromethamine (Toradol Injection -) 30 mg IVPUSH Q6H PRN PRN Reason: PAIN LEVEL 1-5 Stop: 04/06/19 11:11 Last Admin: 04/01/19 11:42 Dose: 30 mg Ondansetron HCl (Zofran Injection) 4 mg IVPUSH Q4H PRN PRN Reason: NAUSEA AND/OR VOMITING Oxycodone HCl (Roxicodone -) 10 mg PO Q6H PRN PRN Reason: PAIN LEVEL 6-10 Last Admin: 04/01/19 11:40 Dose: 10 mg Polyethylene Glycol (Miralax (For Daily Use) -) 17 gm PO HS [facility] Last Admin: 04/01/19 03:21 Dose: 17 grams Promethazine HCl (Phenergan Injection -) 12.5 mg IVPB Q6H PRN PRN Reason: NAUSEA-FOR RESCUE AFTER 15 MIN Tizanidine HCl (Tizanidine Hcl) 8 mg PO TID [facility] Last Admin: 04/01/19 14:10 Dose: 8 mg - Objective Vital Signs: Vital Signs Temperature 98.7 F 04/01/19 14:00 Pulse Rate 50 L 04/01/19 14:00 Respiratory Rate 20 04/01/19 14:00 Blood Pressure 100/52 L 04/01/19 14:00 O2 Sat by Pulse Oximetry (%) 96 04/01/19 11:01 Constitutional: Yes: No Distress, Calm Cardiovascular: Yes: S1, S2 Respiratory: Yes: Regular, CTA Bilaterally Musculoskeletal: Yes: WNL, Back Pain Extremities: Yes: WNL Neurological: Yes: Alert, Oriented Psychiatric: Yes: Alert, Oriented Labs: CBC, BMP 04/01/19 02:55 04/01/19 02:55 Assessment/Plan plan continue current mgmt await for blood cx close watch if spikes fever will broaden coverage monitor drainage
[2019-04-01] MEDS: HYDROmorphone HCl 2 MG/ML VIAL IVPB PRN (20:41)
[2019-04-01] MEDS: ATORVASTATIN CA 40 MG TABLET (FP) PO SCH (22:41)
[2019-04-02] MEDS ORDERED: ceFAZolin SODIUM 1 GM VIAL ONE ×2 (01:46→09:40)
[2019-04-02] MEDS ORDERED: DEXTROSE 5%-WATER - 50 ML IVPB ONE ×2 (01:46→09:40)
[2019-04-02] MEDS: CEFAZOLIN 1 GM in DEXTROSE 5%-WATER - 50 ML IVPB SCH ×2 (02:19→10:00)
[2019-04-02] MEDS: KETOROLAC TROMETHAMINE 30 MG/1 ML VIAL IVPUSH PRN (03:35)
[2019-04-02] MEDS: DOCUSATE SODIUM 100 MG CAPSULE (FP) PO SCH ×2 (06:41→14:24)
[2019-04-02] MEDS: HEPARIN NA (PORCINE) 5,000 UNITS/ML 1ML VIAL SQ SCH ×2 (06:41→14:24)
[2019-04-02] MEDS: HYDROmorphone HCl 2 MG/ML VIAL IVPB PRN (06:42)
[2019-04-02] MEDS: TIZANIDINE HCL 4 MG TABLET PO SCH ×2 (06:43→14:24)
--- NOTE | 2019-04-02 08:27 | PN ---
Progress Note, Physician - Current Medication List Current Medications: Active Medications Albuterol/Ipratropium (Duoneb -) 1 amp NEB Q6H PRN PRN Reason: SHORTNESS OF BREATH Atorvastatin Calcium (Lipitor -) 40 mg PO HS [facility] Last Admin: 04/01/19 22:41 Dose: 40 mg Dexamethasone Sodium Phosphate (Decadron Injection -) 4 mg IVPUSH ONCE PRN PRN Reason: NAUSEA AND/OR VOMITING Diphenhydramine HCl (Benadryl Injection -) 12.5 mg IVPUSH ONCE PRN PRN Reason: FOR ITCHING Diphenhydramine HCl (Benadryl -) 25 mg PO Q6H PRN PRN Reason: FOR ITCHING Docusate Sodium (Colace -) 100 mg PO TID [facility] Last Admin: 04/02/19 06:41 Dose: 100 mg Ferrous Sulfate (Feosol -) 325 mg PO DAILY [facility] Last Admin: 04/01/19 09:17 Dose: 325 mg Folic Acid (Folic Acid -) 1 mg PO DAILY [facility] Last Admin: 04/01/19 09:18 Dose: 1 mg Gabapentin (Neurontin -) 800 mg PO QID [facility] Last Admin: 04/01/19 22:41 Dose: 800 mg Heparin Sodium (Porcine) (Heparin -) 5,000 unit SQ TID [facility] Last Admin: 04/02/19 06:41 Dose: 5,000 unit Hydromorphone HCl (Dilaudid Vial -) 2 mg IVPB Q8H PRN PRN Reason: PAIN LEVEL 7 - 10 Last Admin: 04/02/19 06:42 Dose: 2 mg Lactated Ringer's (Lactated Ringers Solution) 1,000 mls @ 125 mls/hr IV ASDIR [facility] Last Admin: 04/01/19 23:05 Dose: 125 mls/hr Cefazolin Sodium 1 gm/ (Dextrose) 50 mls @ 100 mls/hr IVPB Q8H-IV [facility] Last Admin: 04/02/19 02:19 Dose: 100 mls/hr Ketorolac Tromethamine (Toradol Injection -) 30 mg IVPUSH Q6H PRN PRN Reason: PAIN LEVEL 1-5 Stop: 04/06/19 11:11 Last Admin: 04/02/19 03:35 Dose: 30 mg Ondansetron HCl (Zofran Injection) 4 mg IVPUSH Q4H PRN PRN Reason: NAUSEA AND/OR VOMITING Oxycodone HCl (Roxicodone -) 10 mg PO Q6H PRN PRN Reason: PAIN LEVEL 6-10 Last Admin: 04/01/19 23:06 Dose: 10 mg Polyethylene Glycol (Miralax (For Daily Use) -) 17 gm PO HS [facility] Last Admin: 04/01/19 22:42 Dose: 17 grams Promethazine HCl (Phenergan Injection -) 12.5 mg IVPB Q6H PRN PRN Reason: NAUSEA-FOR RESCUE AFTER 15 MIN Tizanidine HCl (Tizanidine Hcl) 8 mg PO TID [facility] Last Admin: 04/02/19 06:43 Dose: 8 mg - Objective Vital Signs: Vital Signs Temperature 99.6 F 04/02/19 05:25 Pulse Rate 87 04/02/19 05:25 Respiratory Rate 18 04/02/19 05:25 Blood Pressure 98/70 04/02/19 05:25 O2 Sat by Pulse Oximetry (%) 96 04/01/19 21:00 Labs: CBC, BMP 04/01/19 02:55 04/01/19 02:55 Problem List - Problems (1) Pulmonary infiltrate Code(s): R91.8 - OTHER NONSPECIFIC ABNORMAL FINDING OF LUNG FIELD (2) Anemia Code(s): D64.9 - ANEMIA, UNSPECIFIED (3) Back pain Code(s): M54.9 - DORSALGIA, UNSPECIFIED Qualifiers: Back pain location: thoracic back pain Chronicity: chronic Back pain laterality: midline Qualified Code(s): M54.6 - Pain in thoracic spine; G89.29 - Other chronic pain (4) Status post thoracic spinal fusion Code(s): Z98.1 - ARTHRODESIS STATUS
[2019-04-02] MEDS ORDERED: PT OWN MED DRAWER 7, Y5N ONE ×2 (09:40→14:17)
[2019-04-02] MEDS: FERROUS SO4 325 MG TABLET (FP) PO SCH (09:59)
[2019-04-02] MEDS: FOLIC ACID 1 MG TABLET (FP) PO SCH (09:59)
[2019-04-02] MEDS: GABAPENTIN 400 MG CAPSULE PO SCH ×2 (09:59→14:24)
[2019-04-02] MEDS: oxyCODONE HCL 5 MG TABLET PO PRN (10:00)
--- NOTE | 2019-04-02 10:56 | PN ---
Progress Note (short form) - Note Progress Note: Pod 3, s/p exploration of spinal fusion T5-10 & T5-T12 fusion Pt seen and examined at bedside. States pain is controlled. has been oob ambulating. Voiding without issue. No Bm yet, + flatus. Tolerating PO. Denies cp /sob, n/v/d. Vital Signs Temp 99.6 F 04/02/19 05:25 Pulse 87 04/02/19 05:25 Resp 18 04/02/19 09:00 BP 98/70 04/02/19 05:25 Pulse Ox 96 04/02/19 09:00 Intake & Output 04/01/19 04/01/19 04/02/19 11:59 23:59 11:59 Intake Total 2530 1400 1780 Output Total 2000 75 80 Balance 530 1325 1700 Intake: IV 1000 1000 1200 Lactated Ringers Solution 1000 1000 1200 1,000 ml @ 125 mls/hr IV ASDIR [facility] Rx#: [id number] IVPB 750 50 180 Oral 780 350 400 Output: Drainage 100 75 80 Right Lower Back 100 75 80 Urine 1900 [place] 1900 Other: Voiding Method Toilet Toilet Toilet # Unmeasured Voids [place] 1 Bowel Movement No CBC, BMP 04/01/19 02:55 04/01/19 02:55 PE: Gen: a&O X3 Resp: breathing comfortably Back: incision is clean with no erythema or discharge noted, dressing reinforced. Drain present with approx 15ml serosanguinous drainage in reservoir. Tubing stripped and drain removed with tip intact, pt tolerated well. neuro 5/5 b/l dorsi/plantarflexion, 5/5 knee ext/flex 5/5 hip flexion. A/P: 38 y/o F w/ h/o thoracic spondylosis and scoliosis s/p T5-T10 lamincetomies , osteotomies with T5/6 costovertebral and T7-T10 transpedicular decompression, correction of deformity with T5-T10 fusion in July [address] Weston, now POD 3, s/p exploration of spinal fusion T5-10 & T5-T12 fusion Afebrile (no fevers since night before last), vss Pain controlled Has been oob ambulating Wound benign, drain removed Neuro exam stable -Okay for d/c to [facility] from neurosurgery standpoint pt also seen and examined by Dr Weston this AM
[2019-04-02 11:15] VITALS: BP 109/49; PULSE 63; TEMP 97.8
--- NOTE | 2019-04-02 11:57 | DS ---
Physical Examination Vital Signs: Vital Signs Temperature 97.8 F 04/02/19 10:00 Pulse Rate 63 04/02/19 10:00 Respiratory Rate 18 04/02/19 10:00 Blood Pressure 109/49 L 04/02/19 10:00 O2 Sat by Pulse Oximetry (%) 96 04/02/19 09:00 Constitutional: Yes: Mild Distress Cardiovascular: Yes: Regular Rate and Rhythm Respiratory: Yes: WNL Gastrointestinal: Yes: WNL Wound/Incision: Yes: Dressing Dry and Intact Neurological: Yes: Pre-Existing Deficit Labs: CBC, BMP 04/01/19 02:55 04/01/19 02:55 Discharge Summary Problems reviewed: Yes Reason For Visit: THORACIC INSTABILITY Current Active Problems Pulmonary infiltrate (Acute) Procedures: Principal: cxr/labs. surgery thoracic spine Hospital Course: admitted for thoracic t5-t10 surgical repair with hardware replaced. patient developed a pulmonary infiltrate may be atelectasis, on abx for 4 days, nebs and incentive spirometry. will go to [facility] for PT f/u outpatient with pmd. Condition: Good - Instructions Diet, Activity, Other Instructions: Post Operative Instructions Physical Activity Resume your normal everyday activity as tolerated. No heavy lifting or exercise until seen by your surgeon. You may walk unlimited amounts and climb stairs. You may resume driving the car when you feel safe and comfortable behind the wheel and you are no longer wearing your brace. Do not operate a vehicle while taking narcotic medication. Brace If you had back surgery, wear TLSO Brace whenever out of bed. May remove to sleep and shower. Wound Care Keep your incision clean, dry and covered at all times. Apply an occlusive dressing (Saran wrap or Tegaderm) when showering to avoid getting your incision wet. Do not submerge incision or apply ointments or creams. The jm will be removed in the office in 10-14 days post-op. Diet There are no dietary restrictions. Eat healthy, high-fiber foods. Drink 6-8 glasses of liquid each day. This will assist in keeping your bowels regular. Pain Management You may take Tylenol or acetaminophen. Any pain prescription medication ordered should be taken as prescribed for moderate to severe pain. Avoid any ibuprofen (Motrin, Advil, Aleve, Toradol, etc) for 3 months unless otherwise discussed with your surgeon. Call Dr Trejo for any of the following: Severe pain not relieved by medication Fever of 101 or higher Excessive bleeding or drainage on dressing Inability to urinate Any chest pain or shortness of breath, seek Emergency Care. Call the office to confirm a post-operative appointment for 2-3 weeks post-op Abdirahman Goodrich MD [facility] [address] [place] [address] Disposition: [facility] - Home Medications Comprehensive Discharge Medication List: Ambulatory Orders Gabapentin 800 mg PO QID 08/04/17 oxyCODONE HCL [Roxicodone -] 20 mg PO QID PRN MDD 8 10/04/17 Clonazepam [Klonopin] 1 mg PO TID PRN 02/19/19 Ondansetron [Zofran -] 8 mg PO TID 02/19/19 Ibuprofen [Motrin -] 400 mg PO PRN PRN 03/29/19 Tizanidine HCl 8 mg PO TID 03/29/19 Atorvastatin Ca [Lipitor] 40 mg PO HS 03/30/19 Albuterol 2.5/Ipratropium 0.5 [Duoneb -] 1 amp NEB Q6H PRN amp 04/02/19 Diphenhydramine HCl [Benadryl Capsule -] 25 mg PO Q6H PRN capsule 04/02/19 Docusate Sodium [Colace -] 100 mg PO TID capsule 04/02/19 Ferrous Sulfate [Feosol] 325 mg PO DAILY ud 04/02/19 Folic Acid - 1 mg PO DAILY tablet 04/02/19 Heparin - 5,000 unit SQ TID vial 04/02/19 Ketorolac Injection [Toradol] 30 mg IJ TID PRN #30 vial 04/02/19 Polyethylene Glycol 3350 [Miralax 119 gm Btl -] 17 gm PO HS bottle 04/02/19 oxyCODONE HCL [Roxicodone -] 10 mg PO Q6H PRN tablet MDD 4 04/02/19 oxyCODONE SR [Oxycontin] 20 mg PO BID #10 tab.er.12h MDD 2 04/02/19 Prescription Drug Monitoring Program (I-STOP) results: I-STOP not reviewed
--- NOTE | 2019-04-02 12:24 | PN ---
Progress Note, Physician History of Present Illness: stable feels a bit warm has been afebrile now blood cx no growth - Current Medication List Current Medications: Active Medications Albuterol/Ipratropium (Duoneb -) 1 amp NEB Q6H PRN PRN Reason: SHORTNESS OF BREATH Atorvastatin Calcium (Lipitor -) 40 mg PO HS [facility] Last Admin: 04/01/19 22:41 Dose: 40 mg Dexamethasone Sodium Phosphate (Decadron Injection -) 4 mg IVPUSH ONCE PRN PRN Reason: NAUSEA AND/OR VOMITING Diphenhydramine HCl (Benadryl Injection -) 12.5 mg IVPUSH ONCE PRN PRN Reason: FOR ITCHING Diphenhydramine HCl (Benadryl -) 25 mg PO Q6H PRN PRN Reason: FOR ITCHING Docusate Sodium (Colace -) 100 mg PO TID [facility] Last Admin: 04/02/19 06:41 Dose: 100 mg Ferrous Sulfate (Feosol -) 325 mg PO DAILY [facility] Last Admin: 04/02/19 09:59 Dose: 325 mg Folic Acid (Folic Acid -) 1 mg PO DAILY [facility] Last Admin: 04/02/19 09:59 Dose: 1 mg Gabapentin (Neurontin -) 800 mg PO QID [facility] Last Admin: 04/02/19 09:59 Dose: 800 mg Heparin Sodium (Porcine) (Heparin -) 5,000 unit SQ TID [facility] Last Admin: 04/02/19 06:41 Dose: 5,000 unit Hydromorphone HCl (Dilaudid Vial -) 2 mg IVPB Q8H PRN PRN Reason: PAIN LEVEL 7 - 10 Last Admin: 04/02/19 06:42 Dose: 2 mg Cefazolin Sodium 1 gm/ (Dextrose) 50 mls @ 100 mls/hr IVPB Q8H-IV [facility] Last Admin: 04/02/19 10:00 Dose: 100 mls/hr Ketorolac Tromethamine (Toradol Injection -) 30 mg IVPUSH Q6H PRN PRN Reason: PAIN LEVEL 1-5 Stop: 04/06/19 11:11 Last Admin: 04/02/19 03:35 Dose: 30 mg Ondansetron HCl (Zofran Injection) 4 mg IVPUSH Q4H PRN PRN Reason: NAUSEA AND/OR VOMITING Oxycodone HCl (Roxicodone -) 10 mg PO Q6H PRN PRN Reason: PAIN LEVEL 6-10 Last Admin: 04/02/19 10:00 Dose: 10 mg Polyethylene Glycol (Miralax (For Daily Use) -) 17 gm PO HS [facility] Last Admin: 04/01/19 22:42 Dose: 17 grams Promethazine HCl (Phenergan Injection -) 12.5 mg IVPB Q6H PRN PRN Reason: NAUSEA-FOR RESCUE AFTER 15 MIN Tizanidine HCl (Tizanidine Hcl) 8 mg PO TID [facility] Last Admin: 04/02/19 06:43 Dose: 8 mg - Objective Vital Signs: Vital Signs Temperature 97.8 F 04/02/19 10:00 Pulse Rate 63 04/02/19 10:00 Respiratory Rate 18 04/02/19 10:00 Blood Pressure 109/49 L 04/02/19 10:00 O2 Sat by Pulse Oximetry (%) 96 04/02/19 09:00 Constitutional: Yes: Calm, Other Cardiovascular: Yes: S1, S2 Respiratory: Yes: Regular, CTA Bilaterally Gastrointestinal: Yes: Normal Bowel Sounds, Soft Musculoskeletal: Yes: WNL Extremities: Yes: Other Wound/Incision: Yes: Other (drain in place) Labs: CBC, BMP 04/01/19 02:55 04/01/19 02:55 Assessment/Plan Problem List - Problems (1) Pulmonary infiltrate Code(s): R91.8 - OTHER NONSPECIFIC ABNORMAL FINDING OF LUNG FIELD (2) Anemia Code(s): D64.9 - ANEMIA, UNSPECIFIED (3) Back pain Code(s): M54.9 - DORSALGIA, UNSPECIFIED Qualifiers: Back pain location: thoracic back pain Chronicity: chronic Back pain laterality: midline Qualified Code(s): M54.6 - Pain in thoracic spine; G89.29 - Other chronic pain (4) Status post thoracic spinal fusion Code(s): Z98.1 - ARTHRODESIS STATUS plan if patient remains afebrile can stop abx monitor drainage
--- NOTE | 2019-04-02 13:24 | CON.PULM ---
Consult Consult Specialty:: PULM/CCM Referred by:: CECY Reason for Consultation:: PNA - History of Present Illness Chief Complaint: Thoracic surgery History of Present Illness: 37 F, S/P RLL lobectomy at [facility] in 2013 due to an AVM (?). Reports requiring 3 thoracotomies and eventual thoracic spinal surgery (T5-T10; 07/2017) due to resultant complications. History of gastric bypass in 2018. Admitted for spinal instability and underwent Exploration of Spinal fusion with removal of hardware, Re-operative T5-T10, laminectomies with osteotomies and arthrotomies with T5-T12 Posterior Lumbar fusion. Found to have a left lower lobe infiltrate on imaging that was suspected of being PNA or atelectasis. She does have some dry cough but no significant sputum production. No hemoptysis. She was evaluated by a Echocardiography Radiology Technologist at [facility] about 6 to 7 months ago. She said she had sleep apnea testing which was negative. - History Source History Provided By: Patient Limitations to Obtaining History: No Limitations - Past Medical History Pulmonary: Yes: Bronchitis, Pneumonia, Other (RLL resection due to AVM in 2013) . No: Asthma, Cancer, COPD, O2 Dependent, Previously Intubated, Pulmonary Embolus, Pulmonary Fibrosis, Sleep Apnea ...LMP: 06/06/17 ...LMP Comment: blding from April to 1week ago Musculoskeletal: Yes: Chronic low back pain - Alcohol/Substance Use Hx Alcohol Use: No - Smoking History Smoking history: Never smoked Have you smoked in the past 12 months: No Aproximately how many cigarettes per day: 0 Home Medications - Allergies Allergies/Adverse Reactions: Allergies Allergy/AdvReac Type Severity Reaction Status Date / Time acetaminophen [From Ofirmev] AdvReac Mild Hives Verified 03/30/19 10:03 - Home Medications Home Medications: Ambulatory Orders Gabapentin 800 mg PO QID 08/04/17 oxyCODONE HCL [Roxicodone -] 20 mg PO QID PRN MDD 8 10/04/17 Clonazepam [Klonopin] 1 mg PO TID PRN 02/19/19 Ondansetron [Zofran -] 8 mg PO TID 02/19/19 Ibuprofen [Motrin -] 400 mg PO PRN PRN 03/29/19 Tizanidine HCl 8 mg PO TID 03/29/19 Atorvastatin Ca [Lipitor] 40 mg PO HS 03/30/19 Albuterol 2.5/Ipratropium 0.5 [Duoneb -] 1 amp NEB Q6H PRN amp 04/02/19 Diphenhydramine HCl [Benadryl Capsule -] 25 mg PO Q6H PRN capsule 04/02/19 Docusate Sodium [Colace -] 100 mg PO TID capsule 04/02/19 Ferrous Sulfate [Feosol] 325 mg PO DAILY ud 04/02/19 Folic Acid - 1 mg PO DAILY tablet 04/02/19 Heparin - 5,000 unit SQ TID vial 04/02/19 Ketorolac Injection [Toradol] 30 mg IJ TID PRN #30 vial 04/02/19 Polyethylene Glycol 3350 [Miralax 119 gm Btl -] 17 gm PO HS bottle 04/02/19 oxyCODONE HCL [Roxicodone -] 10 mg PO Q6H PRN tablet MDD 4 04/02/19 oxyCODONE SR [Oxycontin] 20 mg PO BID #10 tab.er.12h MDD 2 04/02/19 Review of Systems - Review of Systems Constitutional: denies: Fever, Malaise, Night Sweats, Unintentional Wgt. Loss Eyes: reports: No Symptoms HENT: reports: No Symptoms Neck: reports: No Symptoms Cardiovascular: denies: Chest Pain, Edema, Palpitations, Shortness of Breath Respiratory: reports: Snoring. denies: Cough, Hemoptysis, Orthopnea, PND, SOB, SOB on Exertion, Wheezing Gastrointestinal: reports: No Symptoms Genitourinary: reports: No Symptoms Breasts: reports: No Symptoms Reported Musculoskeletal: reports: Back Pain, Decreased ROM, Muscle Pain, Muscle Cramps. denies: Joint Pain, Joint Swelling Integumentary: reports: No Symptoms Neurological: reports: No Symptoms Endocrine: reports: No Symptoms Hematology/Lymphatic: reports: No Symptoms Psychiatric: reports: No Symptoms Physical Exam Vital Sings: Vital Signs Temperature 97.8 F 04/02/19 10:00 Pulse Rate 63 04/02/19 10:00 Respiratory Rate 18 04/02/19 10:00 Blood Pressure 109/49 L 04/02/19 10:00 O2 Sat by Pulse Oximetry (%) 96 04/02/19 09:00 Constitutional: Yes: No Distress, Calm, Obese Eyes: Yes: Conjunctiva Clear, EOM Intact HENT: Yes: Atraumatic, Normocephalic Neck: Yes: Supple, Trachea Midline Cardiovascular: Yes: Regular Rate and Rhythm Respiratory: Yes: CTA Bilaterally. No: Accessory Muscle Use, Rales, Rhonchi, SOB, SOB on Exertion, Stridor, Tachypnea, Wheezes ...Inspection: Yes: Surgical Scar ...Clubbing: No Gastrointestinal: Yes: Normal Bowel Sounds, Soft Renal/: Yes: WNL Musculoskeletal: Yes: Back Pain, Other (post operative changes ) Extremities: Yes: WNL Edema: No Peripheral Pulses WNL: Yes Integumentary: Yes: WNL Neurological: Yes: WNL, Alert, Oriented ...Motor Strength: WNL Psychiatric: Yes: WNL, Alert, Oriented Labs: CBC, BMP 04/01/19 02:55 04/01/19 02:55 Imaging - Results Chest X-ray: Report Reviewed, Image Reviewed Cat Scan: Report Reviewed, Image Reviewed Problem List - Problems (1) S/P lobectomy of lung Code(s): Z90.2 - ACQUIRED ABSENCE OF LUNG [PART OF] (2) Obesity Code(s): E66.9 - OBESITY, UNSPECIFIED (3) Atelectasis Code(s): J98.11 - ATELECTASIS (4) Pulmonary infiltrate Code(s): R91.8 - OTHER NONSPECIFIC ABNORMAL FINDING OF LUNG FIELD (5) Anemia Code(s): D64.9 - ANEMIA, UNSPECIFIED (6) Back pain Code(s): M54.9 - DORSALGIA, UNSPECIFIED Qualifiers: Back pain location: thoracic back pain Chronicity: chronic Back pain laterality: midline Qualified Code(s): M54.6 - Pain in thoracic spine; G89.29 - Other chronic pain (7) Status post thoracic spinal fusion Code(s): Z98.1 - ARTHRODESIS STATUS Assessment/Plan Suspect findings on CT are more likely atelectasis. However, she has received 4 days of ABX therapy. PLAN: Can likely monitor off ABX Incentive Spirometry O2 as needed No smoking counseled VTE prophylaxis There is no Pulmonary contraindication for DC to rehab Thank you. Dr Stone
== END 2019-04-02 16:21 | DRG 457 ==
LOC: JSAMEDAYSX 09:02 → J4W 18:09
PROVIDERS: ADMIT Family Medicine; ATTEND Family Medicine
PROC: 0RG7071 Fusion of 2 to 7 Thoracic Vertebral Joints with Autologous Tissue Substitute, Posterior Approach, Posterior Column, Open Approach (ICD-10-PCS; 2019-03-30)
PROC: 0PW404Z Revision of Internal Fixation Device in Thoracic Vertebra, Open Approach (ICD-10-PCS; 2019-03-30)
PROC: 00NX0ZZ Release Thoracic Spinal Cord, Open Approach (ICD-10-PCS; 2019-03-30)
PROC: 0JX70ZZ Transfer Back Subcutaneous Tissue and Fascia, Open Approach (ICD-10-PCS; 2019-03-30)
PROC: B01BZZZ Fluoroscopy of Spinal Cord (ICD-10-PCS; 2019-03-30)
PROC: 0RP60AZ Removal of Interbody Fusion Device from Thoracic Vertebral Joint, Open Approach (ICD-10-PCS; principal; 2019-03-30 11:00)
DX: M40.204 Unspecified kyphosis, thoracic region (principal); J98.11 Atelectasis; M47.894 Other spondylosis, thoracic region; M54.6 Pain in thoracic spine; M40.294 Other kyphosis, thoracic region; M54.9 Dorsalgia, unspecified; D64.9 Anemia, unspecified; R91.8 Other nonspecific abnormal finding of lung field; M54.5 Low back pain; E66.9 Obesity, unspecified; Z68.36 Body mass index [BMI] 36.0-36.9, adult; Z90.2 Acquired absence of lung [part of]
CPT/HCPCS: 36415; 71045-TC-FY; 72128-TC; 76000-TC-FY; 80048; 83540; 83550; 83605; 83735; 84100; 84703; 85025; 85027; 86850; 86900; 86901; 87040; 94010; 94760; 97116-GP; 97162-GP; J1644

== ENCOUNTER 2020-12-15 11:41 | Emergency (ER) | payer OTHER ==
[2020-12-15 11:56] VITALS: BP 140/94; PULSE 96; TEMP 97; BMI 34.7
[2020-12-15] MEDS ORDERED: ACETAMINOPHEN 1000 MG/100 ML VIAL (NON FORMULARY) IVPB ONE (12:43)
[2020-12-15] MEDS ORDERED: ACETAMINOPHEN INJECTION 100 ML IVPB ONE (13:15)
[2020-12-15] MEDS ORDERED: ONDANSETRON 4 MG TABLET PO ONE (13:25)
[2020-12-15 13:27] LABS: EPI CELLS 12 /uL (0-25.1); HYALINE CASTS 0 /uL (0-3.1); URINE APPEARANCE CLOUDY; URINE BACTERIA 285 /uL (0-1359); URINE BILIRUBIN NEGATIVE (NEGATIVE); URINE COLOR ORANGE; URINE GLUCOSE (UA) NEGATIVE (NEGATIVE); URINE KETONE NEGATIVE (NEGATIVE); URINE LEUK ESTERASE NEGATIVE (NEGATIVE); URINE NITRITE NEGATIVE (NEGATIVE); URINE PROTEIN 1+ (NEGATIVE); URINE RBC 14 /uL (0-23.9); URINE UROBILINOGEN 0.2 mg/dL (0.2-1.0); URINE WBC 16 /uL (0-25.8)
[2020-12-15] MEDS ORDERED: ONDANSETRON 4 MG/2 ML VIAL ONE ×2 (13:29→15:41)
[2020-12-15] MEDS ORDERED: ONDANSETRON *ODT* 4 MG TABLET ONE (13:30)
[2020-12-15 13:38] LABS: BASO % 0.3 % (0-2.0); EOS % 0.3 % (0-4.5); HEMATOCRIT 32.1 % (32.4-45.2); HEMOGLOBIN 10.8 GM/dL (10.7-15.3); LYMPH % 21.9 % (8-40); MCH 28.2 pg (25.7-33.7); MCHC 33.6 g/dl (32.0-36.0); MEAN CELL VOLUME 83.8 fl (80-96); MEAN PLT VOLUME 7.9 fl (7.5-11.1); MONO % 3.9 % (3.8-10.2); NEUT % 73.6 % (42.8-82.8); PLATELET COUNT 212 10^3/uL (134-434); RBC 3.83 M/mm3 (3.60-5.2); RDW 17.4 % (11.6-15.6); WHITE BLOOD COUNT 8.9 K/mm3 (4.0-10.0)
[2020-12-15 14:00] LABS: CALCIUM 8.7 mg/dL (8.5-10.1)
[2020-12-15 14:01] LABS: ALBUMIN 3.8 g/dl (3.4-5.0); BLOOD UREA NITROGEN 14.4 mg/dL (7-18)
[2020-12-15 14:04] LABS: CREATININE 0.6 mg/dL (0.55-1.3)
[2020-12-15 14:06] LABS: BILIRUBIN,TOTAL 0.2 mg/dL (0.2-1); TOT PROT 6.8 g/dl (6.4-8.2)
[2020-12-15] MEDS ORDERED: KETOROLAC TROMETHAMINE 30 MG/1 ML VIAL IM ONE (15:15)
[2020-12-15] MEDS ORDERED: KETOROLAC TROMETHAMINE 30 MG/1 ML VIAL ONE (15:34)
[2020-12-15] MEDS ORDERED: ONDANSETRON 4 MG/2 ML VIAL IVPUSH ONE (15:40)
[2020-12-15] MEDS ORDERED: morphine SULFATE 4 MG/ML VIAL IVPUSH ONE (16:19)
[2020-12-15] MEDS ORDERED: morphine SULFATE 4 MG/ML VIAL ONE (16:24)
== END 2020-12-15 16:50 | disposition home or self-care (01) ==
LOC: JER 11:41
PROC: 3E0233Z Introduction of Anti-inflammatory into Muscle, Percutaneous Approach (ICD-10-PCS; principal; 2020-12-15)
PROC: 3E033GC Introduction of Other Therapeutic Substance into Peripheral Vein, Percutaneous Approach (ICD-10-PCS; 2020-12-15)
PROC: 3E033GC Introduction of Other Therapeutic Substance into Peripheral Vein, Percutaneous Approach (ICD-10-PCS; 2020-12-15)
DX: M54.9 Dorsalgia, unspecified (principal); W01.0XXA Fall on same level from slipping, tripping and stumbling without subsequent striking against object, initial encounter; Y92.9 Unspecified place or not applicable
CPT/HCPCS: 36415; 71045-TC-FY; 72128-TC; 72131-TC; 80053; 81003; 84703; 85025; 87086; 99291; J0131

== ENCOUNTER 2023-02-18 17:42 | Emergency (ER) | payer OTHER ==
[2023-02-18 17:54] VITALS: BP 137/55; PULSE 90; RESP 18; TEMP 98.2; BMI 37.3
[2023-02-18] MEDS ORDERED: KETOROLAC TROMETHAMINE 30 MG/1 ML VIAL IM ONE (18:21)
[2023-02-18] MEDS ORDERED: diazePAM 5 MG TABLET PO ONE (18:22)
[2023-02-18] MEDS ORDERED: diazePAM 5 MG TABLET ONE (18:24)
[2023-02-18] MEDS ORDERED: KETOROLAC TROMETHAMINE 30 MG/1 ML VIAL ONE (18:24)
== END 2023-02-18 20:35 | disposition home or self-care (01) ==
LOC: JERFT 17:42
PROC: 3E0233Z Introduction of Anti-inflammatory into Muscle, Percutaneous Approach (ICD-10-PCS; principal; 2023-02-18)
DX: T84.296A Other mechanical complication of internal fixation device of vertebrae, initial encounter (principal); M54.6 Pain in thoracic spine; W01.0XXA Fall on same level from slipping, tripping and stumbling without subsequent striking against object, initial encounter; Y92.009 Unspecified place in unspecified non-institutional (private) residence as the place of occurrence of the external cause
CPT/HCPCS: 72128-TC; 72131-TC; 73562-TC-RT-FY; 96372; 99284-25